=== PATIENT | male | born 1950 | race African-American/Black ===

== ENCOUNTER 2019-03-15 13:51 | Inpatient (IN) | payer OTHER ==
[2019-03-15] MEDS ORDERED: ALBUTEROL SO4 2.5/IPRATROPIUM 0.5 INH SOL 3 ML VIAL.NEB. NEB ONE (14:39)
--- NOTE | 2019-03-15 14:39 | PDOC ---
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 The patient was satting in the 70's on RA upon arrival to the ED. His O2 sat went up to 100% with a non-rebreather mask applied. The patient states he was diagnosed with PNA from an X-ray 2 weeks prior for which he was treated with amoxicillin-clavulanate and finished the course of Antibiotics 3 days ago. Despite finishing the Abx the patient has still been short of breath. He frequently becomes short of breath and self administers albuterol and ipratropium via nebulizer at home. This time however his home nebulizers did not relieve his discomfort so the patient came to the ER to be evaluated. The patient denies recent fevers, chills, chest pain, ankle/leg swelling, abdominal pain, headahe or neck pain. PCP: Dr. Zhou at [facility] Director Of Compensation: Anabelle Inman at [facility] PSH: PAH Lobectomy 2015, PE lung clot retrieval Social Hx: Denies every smoking, drinking, or other substance usage. Patient Lives at home by self, has an aid 7 days a week for 8 hours. Allergies: Toradol Past History - Past Medical History Allergies/Adverse Reactions: Allergies Allergy/AdvReac Type Severity Reaction Status Date / Time ketorolac [From Toradol] AdvReac Difficulty Verified 03/15/19 16:56 Breathing Home Medications: Ambulatory Orders Digoxin [Lanoxin -] 0.125 mg PO DAILY 03/15/19 Montelukast Sodium [Singulair] 10 mg PO DAILY 03/15/19 Pantoprazole Sodium [Protonix -] 40 mg PO DAILY 03/15/19 Prednisone 10 mg PO DAILY 03/15/19 Rivaroxaban [Xarelto -] 20 mg PO DAILY 03/15/19 Review of Systems - Review of Systems Able to Perform ROS?: Yes Comments:: CONSTITUTIONAL: Absent: fever, no chills, no fatigue EYES: Absent: visual changes ENT: Absent: ear pain, no sore throat CARDIOVASCULAR: Absent: chest pain, no palpitations RESPIRATORY: Present: SOB Absent: cough GI: Absent: abdominal pain, no nausea, no vomiting, no constipation, no diarrhea GENITOURINARY: Absent: dysuria, no frequency, no hematuria MUSKULOSKELETAL: Absent: back pain, no arthralgia, no myalgia SKIN: Present: rash NEURO: Absent: headache *Physical Exam - Vital Signs Last Vital Signs Temp Pulse Resp BP Pulse Ox 96.7 F L 102 H 20 132/92 03/15/19 14:23 03/15/19 14:23 03/15/19 14:23 03/15/19 14:23 - Physical Exam General Appearance: Yes: Disheveled, Moderate Distress, Cachetic, Thin. No: Nourished HEENT: positive: EOMI, YVONNE, Normal ENT Inspection, Normal Voice Neck: positive: Trachea midline, Supple, Decreased range of motion. negative: Tender Respiratory/Chest: positive: Lungs Clear, Respiratory Distress, Accessory Muscle Use, Labored Respiration, Rapid RR, Decreased Breath Sounds. negative: Crackles, Rales, Rhonchi, Stridor, Wheezing Cardiovascular: positive: Regular Rhythm, S1, S2, Tachycardia. negative: Edema , JVD, Murmur Vascular Pulses: Dorsalis-Pedis (R): 1+, Doralis-Pedis (L): 1+ Gastrointestinal/Abdominal: positive: Normal Bowel Sounds, Flat, Soft. negative : Tender Male Genitalia: positive: normal genitalia. negative: testicular tenderness Rectal Exam: positive: deferred Musculoskeletal: positive: Decreased Range of Motion, Other (Cachectic). negative: Vertebral Tenderness Extremity: positive: Normal Capillary Refill, Normal Inspection, Coldness, Cyanosis, Delayed Capillary Refill. 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 The patient was satting in the 70's on RA upon arrival to the ED. His O2 sat went up to 100% with a non-rebreather mask applied. The patient states he was diagnosed with PNA from an X-ray 2 weeks prior for which he was treated with amoxicillin-clavulanate and finished the course of Antibiotics 3 days ago. Despite finishing the Abx the patient has still been short of breath. He frequently becomes short of breath and self administers albuterol and ipratropium via nebulizer at home. This time however his home nebulizers did not relieve his discomfort so the patient came to the ER to be evaluated. The patient denies recent fevers, chills, chest pain, ankle/leg swelling, abdominal pain, headahe or neck pain. VS: Tachycardic, hypoxic on entrance to the ER. - Patient is in significant respiratory distress. He is using accessory muscles to breathe. DDx IBNLT: PE, PNA, reactive airway disease, pneumothorax, ACS/NE, heart failure , Pulmonary Arterial Htn Patient is taking xarelto but is still very high risk for PE given her permanent bedbound state, history of PE, hypoxia, tachycardia, and history of cancer. Plan: Labs, CXR, EKG, CTA, duonebs, Bi-Pap, admit. EKG: RBBB, Right axis deviation, pulmonary HTN pattern Labs: BNP elevated, patient is also hyperkalemic - Will give albuterol for hyperkalemia - VBG shows patient is retaining: Will start on Bipap CXR: Shows possible right lobe infiltrate - Will get blood cultures and start Abx in ED Patient is adamantly refusing to have a Cat Scan. He wants to be admitted to the hospital but refuses to have a Cat Scan. - Spoke with Dr. Puentes who accepted the patient to her service - Spoke with ICU resident who will come and evaluate the patient. Cardiology Consult - Dr. Herndon. Spoke with him and he agrees that considering the patient's tachycardia is sinus there is no need for rate slowing medications at this time. The most important aspect to address is the patient's respiratory distress. Will consider using nitroglycerin and keep the patient on BiPap, and the patient will be admitted to the ICU for further care. *DC/Admit/Observation/Transfer Diagnosis at time of Disposition: Respiratory distress, Hypoxia, Pulmonary arterial hypertension, Tachycardia, Lung infiltrate, JVD (jugular venous distension), Cor pulmonale - Discharge Dispostion Condition at time of disposition: Guarded Decision to Admit order: Yes - Referrals - Patient Instructions - Post Discharge Activity
[2019-03-15] MEDS ORDERED: SODIUM CHLORIDE 0.9% 500 ML INFUS.BAG IV ONE (14:44)
[2019-03-15 15:43] LABS: BASO % 0.6 % (0-2.0); EOS % 0.1 % (0-4.5); HEMATOCRIT 37.7 % (35.4-49); HEMOGLOBIN 12.3 GM/dL (11.7-16.9); MCH 28.7 pg (25.7-33.7); MCHC 32.7 g/dl (32.0-35.9); MEAN CELL VOLUME 87.8 fl (80-96); MONO % 14.5 % (3.8-10.2); NEUT % 76.8 % (42.8-82.8); PLATELET COUNT 168 K/MM3 (134-434); RBC 4.29 M/mm3 (4.00-5.60); RDW 15.7 % (11.9-15.9); WHITE BLOOD COUNT 6.7 K/mm3 (4.0-10.0)
[2019-03-15 15:57] LABS: VENOUS PC02 62.3 mmHg (41-51); VENOUS PH 7.3 (7.31-7.41); VENOUS PO2 33.6 mmHg (30-40)
[2019-03-15 16:01] LABS: INR 1.86 (0.83-1.09); PROTHROMBIN TIME (PATIENT) 22.1 SEC (9.7-13.0)
[2019-03-15 16:04] LABS: ACTIVATED PTT 37.4 SECONDS (25.2-36.5)
[2019-03-15 16:12] LABS: N-TERMINAL BNP 4183.9 pg/ml (5-125)
[2019-03-15 16:15] LABS: ALBUMIN 1.8 g/dl (3.4-5.0); ALK PHOS 91 U/L (45-117); ANION GAP 5 MMOL/L (8-16); BILIRUBIN,TOTAL 0.6 mg/dL (0.2-1); BLOOD UREA NITROGEN 13 mg/dL (7-18); CALCIUM 8.4 mg/dL (8.5-10.1); CHLORIDE 102 mmol/L (98-107); CO2 30 mmol/L (21-32); CREATININE 0.7 mg/dL (0.55-1.3); GLUCOSE,RANDOM 70 mg/dL (74-106); POTASSIUM 5.3 mmol/L (3.5-5.1); SGOT/AST 38 U/L (15-37); SGPT/ALT 27 U/L (13-61); SODIUM 136 mmol/L (136-145); TOT PROT 6.4 g/dl (6.4-8.2)
--- NOTE | 2019-03-15 16:23 | PDOC ---
Documentation entered by Sushma Carvajal SCRIBE, acting as scribe for Mirella Saavedra MD. Mirella Saavedra MD: This documentation has been prepared by the Wei huynh Sammi, SCRIBE, under my direction and personally reviewed by me in its entirety. I confirm that the documentation accurately reflects all work, treatment, procedures, and medical decision making performed by me. Attending Attestation - Resident Resident Name: Sharan Machado - ED Attending Attestation I have performed the following: I have examined & evaluated the patient, The case was reviewed & discussed with the resident, I agree w/resident's findings & plan, Exceptions are as noted - HPI HPI: 03/15/19 16:03 The patient is a 68 year old male, with a PMH of Pulmonary Arterial, HTN, on permanent home O2 ~2.5L, multiple PE's (on xarelto), prostate cancer, aspergillus s/p right lower lobe lobectomy, childhood asthma, and reactive airway disease, who was BIBA from home to the emergency department for evaluation of SOB. Patient notes an Xray taken 2 weeks ago that showed a PNA and was prescribed antibiotics which he has completed and is still experiencing symptoms. Patient reports taking prescribed albuterol and ipratropium at onset of symptoms with no relief prompting his arrival to the ED. Patient has an aide that comes everyday for about 8 hours. The patient denies chest pain, headache and dizziness. Denies fever, chills, nausea, vomit, diarrhea and constipation. Denies dysuria, frequency, urgency and hematuria. 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 Inman ([facility]) - Physicial Exam PE: 03/15/19 16:17 GENERAL: The patient is in no acute distress, rapid respirations, pursed lips, speaking in 3-4 word sentences. ENT: Ears normal, nares patent, oropharynx clear without exudates. Moist mucous membranes. NECK: Normal range of motion, supple LUNGS: faint breath sounds, bilaterally HEART:Regular rate and rhythm, normal S1 and S2 without murmur, rub or gallop. ABDOMEN: Soft, nontender, normoactive bowel sounds. EXTREMITIES: Normal range of motion, no edema. NEUROLOGICAL: Cranial nerves II through XII grossly intact. Normal speech. No focal neurological deficits. SKIN: Warm, Dry, normal turgor, no rashes or lesions noted. - Critical Care Time Total Critical Care Time: 60 Critical Care Statement: The care of this patient involved high complexity decision making to prevent further life threatening deterioration of the patient 's condition and/or to evaluate & treat vital organ system(s) failure or risk of failure. - Medical Decision Making 03/15/19 16:19 68 yo M multiple respiratory conditions -Pulm HTN, Aspergillus s/p right lower lobe lobectomy, PE who presents with shortness of breath Recent pneumonia, treated with Augmentin, last dose 4 days ago No fevers or chills EKG - ST rate of 126 bpm, RAD, RVH, artifact at baseline (EKG abn as compared to prior from 2001) 03/15/19 16:23 Laboratory Tests 03/15/19 03/15/19 03/15/19 15:01 15: 15:01 WBC Hgb Hct Plt Count INR 1.86 H D-Dimer VBG pH 7.30 L POC VBG pCO2 62.3 H POC VBG pO2 33.6 VBG HCO3 31.3 H VBG O2 Sat (Laurent) 49.2 L Potassium 5.3 H BUN 13 Creatinine 0.7 Random Glucose 70 L Troponin I B-Natriuretic Peptide 03/15/19 03/15/19 03/15/19 15:01 15:01 15:21 WBC 6.7 Hgb 12.3 Hct 37.7 Plt Count 168 INR D-Dimer 924 H VBG pH POC VBG pCO2 POC VBG pO2 VBG HCO3 VBG O2 Sat (Laurent) Potassium BUN Creatinine Random Glucose Troponin I 0.06 H B-Natriuretic Peptide 4183.9 H Pt CXR concerning for pneumonia Vancomycin and Zosyn ordered Pt placed on BiPAP Pt HR 110s to 150s, gently hydrated Pt at this time refusing to be repositioned in bed because he has found a comfortable position He is also refusing to go to CT Pt offered transfer back to [facility] Pt states he does not want to be moved ICU resident called to assess this patient Will admit to ICU Cardiology called (to obtain records form [facility]) Clinical Impression: Pneumonia, initial presentation Acute respiratory failure, initial presentation Pulmonary hypertension, initial presentation
[2019-03-15] MEDS ORDERED: VANCOMYCIN 1,000 MG in DEXTROSE 5%-WATER - 250 ML IVPB ONE (17:14)
[2019-03-15] MEDS ORDERED: ALBUTEROL SO4 0.083% IH SOL 2.5 MG/3 ML VIAL.NEB. NEB ONE ×3 (17:15→21:24)
[2019-03-15] MEDS ORDERED: PIPERACILLIN/TAZOB 4.5 GM 4.5 GM/100 ML BAG IVPB ONE (18:19)
[2019-03-15] MEDS ORDERED: VANCOMYCIN 1 GRAM (PRE-DOCKED) 1,000 MG/250 ML BAG IVPB ONE (18:20)
[2019-03-15] MEDS: PIPERACILLIN/TAZOB 4.5 GM 4.5 GM in DEXTROSE 5%-WATER 100 ML IVPB ONE ×2 (18:28→19:31)
--- NOTE | 2019-03-15 19:40 | CONSULT ---
Consult Consult Specialty:: Pulm/CCM Reason for Consultation:: Acute on chronic respiratory failure - History of Present Illness History of Present Illness: 68 yo M h/o PAH s/p R heart cath but not on any medication, on home O2 2.5L, multiple PE (most recent one 3 years ago) s/p clot retrival currently on xarelto , prostate CA, aspergillus s/p R LLL lobectomy in 2006 and reactive airway disease BIBEMS for worsening shortness of breath. Per EMS, ED and the patient, he went to see his PMD 2 weeks ag for cough and worsening shortness of breath. He was diagnosed with PNA and given augmentin. He finished the abx 3 days ago with no relief of symptoms. Patient was started on daily steroid by his box fabricator at [facility] (Dr. Inman) few months ago but he electively stopped taking it since last week. Denies fever, chills, chest pain, headache, n/v, urinary or bowel sx. - History Source History Provided By: Patient Limitations to Obtaining History: No Limitations - Smoking History Smoking history: Never smoked Home Medications - Allergies Allergies/Adverse Reactions: Allergies Allergy/AdvReac Type Severity Reaction Status Date / Time ketorolac [From Toradol] AdvReac Difficulty Verified 03/15/19 16:56 Breathing - Home Medications Home Medications: Ambulatory Orders Digoxin [Lanoxin -] 0.125 mg PO DAILY 03/15/19 Montelukast Sodium [Singulair] 10 mg PO DAILY 03/15/19 Pantoprazole Sodium [Protonix -] 40 mg PO DAILY 03/15/19 Prednisone 10 mg PO DAILY 03/15/19 Rivaroxaban [Xarelto -] 20 mg PO DAILY 03/15/19 Review of Systems - Review of Systems Constitutional: denies: Chills, Fever Cardiovascular: reports: Shortness of Breath. denies: Chest Pain, Palpitations Respiratory: reports: Cough, Exercise Intolerance, SOB, SOB on Exertion, Wheezing Gastrointestinal: denies: Abdominal Pain, Constipation, Diarrhea Integumentary: reports: Wound (b/l ankles) Neurological: denies: Change in LOC, Change in Speech, Confusion Physical Exam Vital Signs: Vital Signs Temperature 96.7 F L 03/15/19 14:23 Pulse Rate 102 H 03/15/19 14:23 Respiratory Rate 20 03/15/19 14:23 Blood Pressure 132/92 03/15/19 14:23 O2 Sat by Pulse Oximetry (%) 91 L 03/15/19 16:52 Constitutional: Yes: Severe Distress, Thin Cardiovascular: Yes: Tachycardia, S1, S2. No: Murmur Respiratory: Yes: Accessory Muscle Use, Rhonchi, Tachypnea, Other (on bilevel) Gastrointestinal: Yes: Normal Bowel Sounds, Soft. No: Tenderness Edema: No Integumentary: Yes: Venous Stasis Changes Wound/Incision: Yes: Clean/Dry (b/l ankle lesions), Dressing Dry and Intact Labs: CBC, BMP 03/15/19 15:21 03/15/19 15:01 Imaging - Results X-ray: Report Reviewed, Image Reviewed Assessment/Plan 68 yo M h/o PAH s/p R heart cath but not on any medication, on home O2 2.5L, multiple PE (most recent one 3 years ago) s/p clot retrival currently on xarelto , prostate CA, aspergillus s/p R LLL lobectomy in 2006 and reactive airway disease admitted to the ICU for acute on chronic hypercapnic respiratory failure. Pulm: acute on chronic hypercarbic respiratory failure - likely from severe sepsis of hypermetabolism with lactic acidosis in the setting of PAH, reactive airway disease - pt currently on bi-level which corrected his respiratory acidosis but still has intense work of breathing - low level threshold for intubation - neb standing and PRN - solumedrol 60mg IVPUSH Q6H pulmonary arterial hypertension - s/p diagnostic R heart cath - pt not taking any vasoactive agent such as prostaglandin or PDE5 - obtain baseline ECHO h/o PE s/p clot retrival and on xarelto - unlikely another PE while on AC, however, still high Well's score - cont. xarelto reactive airway disease - could a contributor to patient's respiratory failure - duoneb standing and PRN - cont. solumedrol as scheduled - cont. singulair aspergillus s/p LLL lobectomy - another possible contributor due to increased space ventilation ID: severe sepsis - likely from PNA - failed outpatient augmentin treatment - received vanco and zosyn in ED, c/w such regiment and consult ID - fluid resuscitation with 2L NS bolus, then c/w standing isotonic fluids - trend lactate CV: sinus tachycardia - likely 2/2 underlying severe sepsis - cont. to treat underlying cause - cardiology input appreciated Renal hyperkalemia - mild without any EKG change - lactulose 20mg once - repeat BMP tomorrow Neuro: AAO x 3, cont. neurocheck to trend mentation FEN - Aggressive fluid resuscitation - replete as needed - NPO for now Prophylaixs - DVT: on xarelto - GI: not indicated Patient adamantly refused CTA due to fear of worsening dyspnea in scanner. He also refused transfer to [facility] per ED resident. Case discussed with Dr. Vail and the on-call box fabricator for Dr. Inman at [facility] who agreed with the above plan. Paul Navarro PGY3 Visit type - Emergency Visit Emergency Visit: Yes ED Registration Date: 03/15/19 Care time: The patient presented to the Emergency Department on the above date and was hospitalized for further evaluation of their emergent condition. - New Patient This patient is new to me today: Yes Date on this admission: 03/15/19 - Critical Care Critical Care patient: Yes Total Critical Care Time (in minutes): 35 Critical Care Statement: The care of this patient involved high complexity decision making to prevent further life threatening deterioration of the patient 's condition and/or to evaluate & treat vital organ system(s) failure or risk of failure.
[2019-03-15] MEDS: ALBUTEROL SO4 2.5/IPRATROPIUM 0.5 INH SOL 3 ML VIAL.NEB. NEB SCH (19:50)
[2019-03-15] MEDS ORDERED: LACTULOSE 20 GM/30 ML UDC (FOR ORAL USE ONLY) PO ONE (19:55)
--- NOTE | 2019-03-15 20:13 | HP ---
Admitting History and Physical - Primary Care Physician PCP: Gabriel Puentes - Admission History of Present Illness: 68 year old male, with a PMH of Pulmonary Arterial, HTN, on permanent home O2 ~ 2.5L, multiple PE's (on xarelto), prostate cancer, aspergillus s/p right lower lobe lobectomy, childhood asthma, and reactive airway disease, who was BIBA from home to the emergency department for evaluation of SOB. Patient notes an Xray taken 2 weeks ago that showed a PNA and was prescribed antibiotics which he has completed and is still experiencing symptoms. Patient reports taking prescribed albuterol and ipratropium at onset of symptoms with no relief prompting his arrival to the ED. Patient has an aide that comes everyday for about 8 hours. - Past Medical History Cardiovascular: Yes: HTN Pulmonary: Yes: Asthma, Pneumonia, Pulmonary Embolus - Smoking History Smoking history: Never smoked Home Medications - Allergies Allergies/Adverse Reactions: Allergies Allergy/AdvReac Type Severity Reaction Status Date / Time ketorolac [From Toradol] AdvReac Difficulty Verified 03/15/19 16:56 Breathing - Home Medications Home Medications: Ambulatory Orders Digoxin [Lanoxin -] 0.125 mg PO DAILY 03/15/19 Montelukast Sodium [Singulair] 10 mg PO DAILY 03/15/19 Pantoprazole Sodium [Protonix -] 40 mg PO DAILY 03/15/19 Prednisone 10 mg PO DAILY 03/15/19 Rivaroxaban [Xarelto -] 20 mg PO DAILY 03/15/19 Physical Examination Vital Signs: Vital Signs Temperature 96.7 F L 03/15/19 14:23 Pulse Rate 123 H 03/15/19 19:49 Respiratory Rate 13 03/15/19 19:49 Blood Pressure 132/78 03/15/19 19:49 O2 Sat by Pulse Oximetry (%) 100 03/15/19 19:49 Constitutional: Yes: Calm HENT: Yes: Atraumatic Neck: Yes: Supple Cardiovascular: Yes: Regular Rate and Rhythm Respiratory: Yes: Rhonchi, Wheezes Gastrointestinal: Yes: Normal Bowel Sounds Extremities: Yes: WNL Edema: No Neurological: Yes: Alert, Oriented Labs: CBC, BMP 03/15/19 15:21 03/15/19 15:01 Imaging - Results X-ray: Report Reviewed Problem List - Problems (1) Cor pulmonale Assessment/Plan: on iv diuretics Code(s): I27.81 - COR PULMONALE (CHRONIC) (2) Hypoxia Assessment/Plan: intubated and sedated Code(s): R09.02 - HYPOXEMIA (3) Pulmonary arterial hypertension Code(s): I27.21 - SECONDARY PULMONARY ARTERIAL HYPERTENSION (4) Respiratory distress Assessment/Plan: intubated Code(s): R06.03 - ACUTE RESPIRATORY DISTRESS Assessment/Plan Laboratory Tests 03/15/19 03/15/19 03/15/19 15:01 15:01 15:01 WBC RBC Hgb Hct MCV MCH MCHC RDW Plt Count MPV Absolute Neuts (auto) Neutrophils % Lymphocytes % Monocytes % Eosinophils % Basophils % Nucleated RBC % PT with INR 22.10 H INR 1.86 H PTT (Actin FS) 37.4 H D-Dimer Anticoagulation Therapy VBG pH 7.30 L POC VBG pCO2 62.3 H POC VBG pO2 33.6 VBG HCO3 31.3 H VBG O2 Sat (Laurent) 49.2 L VBG Base Excess 4.0 H O2 Delivery Device Oxygen Flow Rate Vent Mode Vent Rate Mechanical Rate Pressure Support Vent Sodium 136 Potassium 5.3 H Chloride 102 Carbon Dioxide 30 Anion Gap 5 L BUN 13 Creatinine 0.7 Creat Clearance w eGFR 112.15 Random Glucose 70 L Calcium 8.4 L Total Bilirubin 0.6 AST 38 H ALT 27 Alkaline Phosphatase 91 Troponin I B-Natriuretic Peptide Total Protein 6.4 Albumin 1.8 L Blood Type Antibody Screen 03/15/19 03/15/19 03/15/19 15:01 15:01 15:01 WBC RBC Hgb Hct MCV MCH MCHC RDW Plt Count MPV Absolute Neuts (auto) Neutrophils % Lymphocytes % Monocytes % Eosinophils % Basophils % Nucleated RBC % PT with INR INR PTT (Actin FS) D-Dimer 924 H Anticoagulation Therapy VBG pH POC VBG pCO2 POC VBG pO2 VBG HCO3 VBG O2 Sat (Laurent) VBG Base Excess O2 Delivery Device Oxygen Flow Rate Vent Mode Vent Rate Mechanical Rate Pressure Support Vent Sodium Potassium Chloride Carbon Dioxide Anion Gap BUN Creatinine Creat Clearance w eGFR Random Glucose Calcium Total Bilirubin AST ALT Alkaline Phosphatase Troponin I 0.06 H B-Natriuretic Peptide 4183.9 H Total Protein Albumin Blood Type Cancelled Antibody Screen Cancelled 03/15/19 03/15/19 15:21 20:02 WBC 6.7 RBC 4.29 Hgb 12.3 Hct 37.7 MCV 87.8 MCH 28.7 MCHC 32.7 RDW 15.7 Plt Count 168 MPV 7.0 L Absolute Neuts (auto) 5.2 Neutrophils % 76.8 Lymphocytes % 8.0 Monocytes % 14.5 H Eosinophils % 0.1 Basophils % 0.6 Nucleated RBC % 0 PT with INR INR PTT (Actin FS) D-Dimer Anticoagulation Therapy No Result Required. VBG pH POC VBG pCO2 POC VBG pO2 VBG HCO3 VBG O2 Sat (Laurent) VBG Base Excess O2 Delivery Device No Result Required. Oxygen Flow Rate No Result Required. Vent Mode No Result Required. Vent Rate No Result Required. Mechanical Rate No Result Required. Pressure Support Vent No Result Required. Sodium Potassium Chloride Carbon Dioxide Anion Gap BUN Creatinine Creat Clearance w eGFR Random Glucose Calcium Total Bilirubin AST ALT Alkaline Phosphatase Troponin I B-Natriuretic Peptide Total Protein Albumin Blood Type Antibody Screen Active Medications Generic Name Dose Route Start Last Admin Trade Name Freq PRN Reason Stop Dose Admin Albuterol/Ipratropium 1 amp 03/15/19 20:00 Duoneb - NEB RQID SUKHWINDER Albuterol/Ipratropium 1 amp 03/15/19 19:53 Duoneb - NEB Q4H PRN SHORTNESS OF BREATH Chlorhexidine Gluconate 1 applic 03/15/19 22:00 Hibiclens For Decolonization - TP HS [facility] Enoxaparin Sodium 40 mg 03/16/19 10:00 Lovenox - SQ DAILY [facility] Piperacillin Sod/Tazobactam 100 mls @ 200 mls/hr 03/16/19 01:00 Sod 4.5 gm/ Dextrose IVPB 03/16/19 01:29 ONCE ONE Protocol Vancomycin HCl 1,250 mg/ 250 mls @ 250 mls/2 hr 03/16/19 05:00 Dextrose IVPB 03/16/19 06:59 ONCE ONE Protocol Methylprednisolone Sodium Succinate 80 mg 03/15/19 21:00 Solu-Medrol - IVPUSH Q6H-IV [facility] Mupirocin 1 applic 03/15/19 22:00 Bactroban Ointment (For Decolonization) - NS 03/20/19 21:59 BID [facility] ASSESSMENT AND PLAN: Respiratory Failure Pneumonia Severe Sepsis Lactic Acidosis Pulmonary HTN h/o PE h/o of aspergellosis h/o of lobectomy plan iv empiric abx iv steroids sputum cx nutrition pt is intubated dvt ppx icu cc time 60 min
[2019-03-15 20:16] LABS: ARTERIAL BLD GAS O2 SATURATION 98.5 % (95-98); ARTERIAL BLOOD GAS BASE EXCESS 2.8 meq/l (-2-2); ARTERIAL BLOOD GAS PCO2 40.2 mmHg (35-45); ARTERIAL BLOOD GAS PO2 126 mmHg (80-105); ARTERIAL BLOOD GAS pH 7.44 (7.35-7.45); CARBOXYHEMOGLOBIN 0.5 % (0-2)
[2019-03-15] MEDS ORDERED: methylPREDNISolone NA SUCC 125 MG/2 ML VIAL IVPUSH ONE (20:30)
[2019-03-15] MEDS ORDERED: FUROSEMIDE 40 MG/4 ML INJECTABLE VIAL IVPUSH ONE (20:33)
[2019-03-15] MEDS ORDERED: RAPID SEQUENCE INTUBATION KIT NR ONE (20:52)
[2019-03-15] MEDS ORDERED: methylPREDNISolone NA SUCC 40 MG/1 ML VIAL IVPUSH SCH (21:00)
[2019-03-15] MEDS ORDERED: PROPOFOL 1,000,000 MCG/100 ML VIAL ONE (21:02)
--- NOTE | 2019-03-15 21:10 | PN ---
Progress Note (short form) - Note Progress Note: Called to intubate this patient who is in acute respiratory failure on nonrebreather mask with 100 O2 saturating in 80s.Gave [id number] mg,f/b Rocuronium 30mg IV.DL with MAC 4.ETT & cuff up posative Etco2.P 162,BP 126/80 and Spo2 100 on O2 100.Advise ABG and CXR.
[2019-03-15] MEDS ORDERED: INSULIN REGULAR HUMAN 100 UNITS/ML *VIAL IVPUSH ONE (21:23)
[2019-03-15] MEDS ORDERED: DEXTROSE 50%-WATER - 25 GM/50 ML VIAL IVPUSH ONE (21:23)
[2019-03-15] MEDS ORDERED: MIDAZOLAM 100 MG/100 ML MG IVPB ONE (21:45)
[2019-03-15] MEDS ORDERED: MIDAZOLAM HCL 5 MG/1 ML Single Dose Vial ONE (21:45)
[2019-03-15] MEDS ORDERED: fentaNYL CITRATE 250 MCG/5 ML VIAL ONE (21:49)
--- NOTE | 2019-03-15 22:07 | PN ---
Progress Note (short form) - Note Progress Note: #Acute hypoxic respiratory failure; with pna -patient severely tachypniec upon arrival to ICU; RR 50s-60s; HR 150s-170 sinus tach; sating in 70s on bipap when nurse turning patient -agreed to be intubated ; sedated on fentanyl and propofol drip -repeat abg -lab reported lactic acid 3.0; -s/p fluid bolus; maintain gentle hydration ; repeat LA -BNP elevated; most likely in the setting of severe right heart fail/pulm htn; -f/u echo cardiogram -repeat cxr -cont iv antibiotics, bronchodilators, iv steroids -HR with sinus tachycardia; repeat ECG still with sinus tach
[2019-03-15] MEDS: CHLORHEXIDINE GLUCONATE 4% CLEANSER FOR DECOLONIZATION TP SCH (22:14)
[2019-03-15] MEDS: PROPOFOL 1,000,000 MCG/100 ML VIAL IVPB SCH (22:14)
[2019-03-15] MEDS: MUPIROCIN 2% TOPICAL OINTMENT FOR DECOLONIZATION NS SCH (22:14)
[2019-03-15] MEDS: FENTANYL INJECTION 500 MCG in DEXTROSE 5%-WATER - 90 ML IVPB SCH (22:14)
[2019-03-15] MEDS ORDERED: SODIUM CHLORIDE 1,000 ML IV STA (22:44)
[2019-03-16 00:01] LABS: ARTERIAL BLD GAS O2 SATURATION 91.3 % (95-98); ARTERIAL BLOOD GAS BASE EXCESS -1.9 meq/l (-2-2); ARTERIAL BLOOD GAS PCO2 47.2 mmHg (35-45); ARTERIAL BLOOD GAS PO2 70.9 mmHg (80-105); ARTERIAL BLOOD GAS pH 7.32 (7.35-7.45)
[2019-03-16 00:06] LABS: ALLENS TEST POSITIVE
[2019-03-16] MEDS ORDERED: PIPERACILLIN/TAZOB 4.5 GM 4.5 GM in DEXTROSE 5%-WATER 100 ML IVPB ONE (01:00)
[2019-03-16] MEDS ORDERED: DEXTROSE 50%-WATER - 25 GM/50 ML VIAL IVPUSH ONE (01:30)
[2019-03-16] MEDS ORDERED: DEXTROSE 50%-WATER 25 GM/50 ML DISP.SYRIN ONE (01:37)
[2019-03-16] MEDS: SODIUM CHLORIDE 1,000 ML IV SCH ×2 (01:45→23:44)
[2019-03-16] MEDS ORDERED: DEXTROSE 5%-WATER 100 ML IVPB ONE (02:35)
[2019-03-16] MEDS ORDERED: PIPERACILLIN/TAZOBACTAM 4.5 GM VIAL IVPB ONE (02:35)
[2019-03-16] MEDS: ALBUTEROL SO4 2.5/IPRATROPIUM 0.5 INH SOL 3 ML VIAL.NEB. NEB PRN (03:29)
[2019-03-16] MEDS ORDERED: VANCOMYCIN HCL 1,250 MG in DEXTROSE 5%-WATER - 250 ML IVPB ONE (05:00)
[2019-03-16] MEDS: methylPREDNISolone NA SUCC 40 MG/1 ML VIAL IVPUSH SCH ×4 (06:27→23:44)
[2019-03-16] MEDS: FENTANYL INJECTION 500 MCG in DEXTROSE 5%-WATER - 90 ML IVPB SCH (06:30)
[2019-03-16 06:35] LABS: BASO % 0.6 % (0-2.0); HEMATOCRIT 35.1 % (35.4-49); HEMOGLOBIN 11.3 GM/dL (11.7-16.9); LYMPH % 1.5 % (8-40); MCH 28.4 pg (25.7-33.7); MCHC 32.3 g/dl (32.0-35.9); MEAN CELL VOLUME 88.1 fl (80-96); MEAN PLT VOLUME 7.2 fl (7.5-11.1); MONO % 2.6 % (3.8-10.2); NEUT % 95.3 % (42.8-82.8); PLATELET COUNT 162 K/MM3 (134-434); RBC 3.99 M/mm3 (4.00-5.60); WHITE BLOOD COUNT 11.1 K/mm3 (4.0-10.0)
[2019-03-16 06:45] LABS: INR 1.49 (0.83-1.09); PROTHROMBIN TIME (PATIENT) 17.7 SEC (9.7-13.0)
[2019-03-16 06:47] LABS: ACTIVATED PTT 28.5 SECONDS (25.2-36.5)
[2019-03-16 07:49] LABS: ALBUMIN 1.7 g/dl (3.4-5.0); ALK PHOS 80 U/L (45-117); ANION GAP 9 MMOL/L (8-16); BILIRUBIN,TOTAL 0.6 mg/dL (0.2-1); BLOOD UREA NITROGEN 12 mg/dL (7-18); CALCIUM 7.6 mg/dL (8.5-10.1); CHLORIDE 107 mmol/L (98-107); CO2 25 mmol/L (21-32); CREATININE 0.8 mg/dL (0.55-1.3); GLUCOSE,RANDOM 156 mg/dL (74-106); PHOSPHOROUS 3.6 mg/dL (2.5-4.9); POTASSIUM 4.7 mmol/L (3.5-5.1); SGOT/AST 19 U/L (15-37); SGPT/ALT 26 U/L (13-61); SODIUM 140 mmol/L (136-145); TOT PROT 5.8 g/dl (6.4-8.2)
[2019-03-16] MEDS ORDERED: PIPERACILLIN/TAZOB 3.375 GM 3.375 GM in DEXTROSE 5%-WATER - 50 ML IVPB ONE (08:00)
[2019-03-16] MEDS: ALBUTEROL SO4 2.5/IPRATROPIUM 0.5 INH SOL 3 ML VIAL.NEB. NEB SCH ×4 (09:15→20:50)
[2019-03-16] MEDS: RIVAROXABAN 20 MG TABLET PO SCH (09:58)
[2019-03-16] MEDS: DIGOXIN 0.125 MG TABLET (FP) PO SCH (09:58)
[2019-03-16] MEDS: PANTOPRAZOLE 40 MG TABLET (FP) PO SCH (09:59)
[2019-03-16] MEDS: MUPIROCIN 2% TOPICAL OINTMENT FOR DECOLONIZATION NS SCH ×2 (09:59→23:45)
[2019-03-16] MEDS ORDERED: ENOXAPARIN NA (PORCINE) 40 MG/0.4 ML DISP.SYRIN SQ SCH (10:00)
[2019-03-16] MEDS ORDERED: DEXTROSE 5%-WATER - 50 ML IVPB ONE ×3 (10:10→23:55)
[2019-03-16] MEDS ORDERED: PIPERACILLIN/TAZOBACTAM 3.375 GM VIAL IVPB ONE ×3 (10:10→23:55)
[2019-03-16 11:38] LABS: ANISOCYTOSIS 0; MACROCYTOSIS 0
--- NOTE | 2019-03-16 11:38 | PN ---
Physical Exam: SUBJECTIVE: Patient seen and examined HD# 2 ICU Day 2 Intubation Day 1 Overnight Events: Pt was admitted to the ICU last evening. Was intubated secondary to tachypnea and tachycardia concerning for pending respiratory failure. Sedation held briefly this morning. Pt was alert and able to communicate with nodding. Found to be tachypneic again. Consented to CTA now that he was intubated. Informed he would again be sedated given his respiratory status. OBJECTIVE: Vital Signs Period Temp Pulse Resp BP Sys/Wright Pulse Ox Last 24 Hr 96.7 F-98.6 F 102-166 13-53 66-132/55-95 90-100 Intake & Output 03/15/19 03/16/19 03/16/19 22:59 06:59 14:59 Intake Total 2350 Output Total 1200 Balance 1150 Weight 51.3 kg 69.672 kg Intake: IV 2000 Normal Saline - 1,000 ml 2000 @ 1000 mls/hr IV ASDIR STA Rx#:[id number] IVPB 350 Output: Urine 1000 Void 1000 Emesis 200 Other: Voiding Method Indwelling Catheter # Unmeasured Voids Void 1 Bowel Movement Yes No Height 1.68 m Body Mass Index (BMI) 18.2 Weight Measurement Method Built in [facility] Built in [facility] Lines: - PIV Drains: - Ovalle Supplemental Oxygen: Ventilator Mode: AC Vent rate: 14 Tv: 400 PEEP: 5 FiO2: 60% Physical Exams: GENERAL: Intubated but the patient is awake, alert, appears fully oriented, in no acute distress. HEAD: Normal with no signs of trauma. LUNGS: Tachypenic, breathing at a rate much higher than vent settings. Breath sounds present bilaterally. Decreased in bilateral lower lobes. No stridor, rales, or wheeze. HEART: Borderline tachycardic rate with regular rhythm, S1, S2 without murmur, rub or gallop. ABDOMEN: Soft, nontender, nondistended. EXTREMITIES: 2+ pulses, warm, well-perfused, no pretibial edema. PSYCH: Normal affect. SKIN: Warm and dry Drips: - Normal Saline - Propofol - Fentanyl Anti Infectives: - Vancomycin, Day 2 - Zosyn, Day 2 Laboratory Results - last 24 hr 03/15/19 03/15/19 03/15/19 15:01 15:01 15:01 WBC RBC Hgb Hct MCV MCH MCHC RDW Plt Count MPV Absolute Neuts (auto) Neutrophils % Lymphocytes % Monocytes % Eosinophils % Basophils % Nucleated RBC % PT with INR 22.10 H INR 1.86 H PTT (Actin FS) 37.4 H D-Dimer Anticoagulation Therapy Puncture Site ABG pH ABG pCO2 at Pt Temp ABG pO2 at Pt Temp ABG HCO3 ABG O2 Sat (Measured) ABG O2 Content ABG Base Excess David Test VBG pH 7.30 L POC VBG pCO2 62.3 H POC VBG pO2 33.6 VBG HCO3 31.3 H VBG O2 Sat (Laurent) 49.2 L VBG Base Excess 4.0 H Carboxyhemoglobin Methemoglobin O2 Delivery Device Oxygen Flow Rate Vent Mode Vent Rate Mechanical Rate PEEP Pressure Support Vent Sodium 136 Potassium 5.3 H Chloride 102 Carbon Dioxide 30 Anion Gap 5 L BUN 13 Creatinine 0.7 Creat Clearance w eGFR 112.15 Random Glucose 70 L Lactic Acid Calcium 8.4 L Phosphorus Magnesium Total Bilirubin 0.6 AST 38 H ALT 27 Alkaline Phosphatase 91 Troponin I B-Natriuretic Peptide Total Protein 6.4 Albumin 1.8 L Digoxin Blood Type Antibody Screen 03/15/19 03/15/19 03/15/19 15:01 15:01 15:01 WBC RBC Hgb Hct MCV MCH MCHC RDW Plt Count MPV Absolute Neuts (auto) Neutrophils % Lymphocytes % Monocytes % Eosinophils % Basophils % Nucleated RBC % PT with INR INR PTT (Actin FS) D-Dimer 924 H Anticoagulation Therapy Puncture Site ABG pH ABG pCO2 at Pt Temp ABG pO2 at Pt Temp ABG HCO3 ABG O2 Sat (Measured) ABG O2 Content ABG Base Excess David Test VBG pH POC VBG pCO2 POC VBG pO2 VBG HCO3 VBG O2 Sat (Laurent) VBG Base Excess Carboxyhemoglobin Methemoglobin O2 Delivery Device Oxygen Flow Rate Vent Mode Vent Rate Mechanical Rate PEEP Pressure Support Vent Sodium Potassium Chloride Carbon Dioxide Anion Gap BUN Creatinine Creat Clearance w eGFR Random Glucose Lactic Acid Calcium Phosphorus Magnesium Total Bilirubin AST ALT Alkaline Phosphatase Troponin I 0.06 H B-Natriuretic Peptide 4183.9 H Total Protein Albumin Digoxin Blood Type Cancelled Antibody Screen Cancelled 03/15/19 03/15/19 03/15/19 15:21 19:55 20:02 WBC 6.7 RBC 4.29 Hgb 12.3 Hct 37.7 MCV 87.8 MCH 28.7 MCHC 32.7 RDW 15.7 Plt Count 168 MPV 7.0 L Absolute Neuts (auto) 5.2 Neutrophils % 76.8 Lymphocytes % 8.0 Monocytes % 14.5 H Eosinophils % 0.1 Basophils % 0.6 Nucleated RBC % 0 PT with INR INR PTT (Actin FS) D-Dimer Anticoagulation Therapy No Result Required. Puncture Site No Result Required. ABG pH 7.44 ABG pCO2 at Pt Temp 40.2 ABG pO2 at Pt Temp 126 H ABG HCO3 26.7 ABG O2 Sat (Measured) 98.5 H ABG O2 Content 23.9 H ABG Base Excess 2.8 H David Test No Result Required. VBG pH POC VBG pCO2 POC VBG pO2 VBG HCO3 VBG O2 Sat (Laurent) VBG Base Excess Carboxyhemoglobin 0.5 Methemoglobin 0.4 O2 Delivery Device No Result Required. Oxygen Flow Rate No Result Required. Vent Mode No Result Required. Vent Rate No Result Required. Mechanical Rate No Result Required. PEEP Pressure Support Vent No Result Required. Sodium Potassium Chloride Carbon Dioxide Anion Gap BUN Creatinine Creat Clearance w eGFR Random Glucose Lactic Acid 3.0 H* Calcium Phosphorus Magnesium Total Bilirubin AST ALT Alkaline Phosphatase Troponin I B-Natriuretic Peptide Total Protein Albumin Digoxin Blood Type Antibody Screen 03/15/19 03/15/19 03/15/19 23:00 23:30 23:30 WBC RBC Hgb Hct MCV MCH MCHC RDW Plt Count MPV Absolute Neuts (auto) Neutrophils % Lymphocytes % Monocytes % Eosinophils % Basophils % Nucleated RBC % PT with INR INR PTT (Actin FS) D-Dimer Anticoagulation Therapy No Result Required. Puncture Site Right radial ABG pH 7.32 L ABG pCO2 at Pt Temp 47.2 H ABG pO2 at Pt Temp 70.9 L ABG HCO3 23.8 ABG O2 Sat (Measured) 91.3 L ABG O2 Content 14.3 L ABG Base Excess -1.9 David Test Positive VBG pH POC VBG pCO2 POC VBG pO2 VBG HCO3 VBG O2 Sat (Laurent) VBG Base Excess Carboxyhemoglobin Methemoglobin O2 Delivery Device Vent Oxygen Flow Rate Yes Vent Mode No Result Required. Vent Rate 14 Mechanical Rate No Result Required. PEEP 5.0 Pressure Support Vent 400 Sodium Potassium Chloride Carbon Dioxide Anion Gap BUN Creatinine Creat Clearance w eGFR Random Glucose Lactic Acid 2.2 H* Calcium Phosphorus Magnesium Total Bilirubin AST ALT Alkaline Phosphatase Troponin I 0.06 H B-Natriuretic Peptide Total Protein Albumin Digoxin Blood Type Antibody Screen 03/16/19 03/16/19 03/16/19 05:30 05:30 05:30 WBC 11.1 H RBC 3.99 L Hgb 11.3 L Hct 35.1 L MCV 88.1 MCH 28.4 MCHC 32.3 RDW 16.0 H Plt Count 162 MPV 7.2 L Absolute Neuts (auto) 10.6 H Neutrophils % 95.3 H D Lymphocytes % 1.5 L D Monocytes % 2.6 L D Eosinophils % 0.0 D Basophils % 0.6 Nucleated RBC % 0 PT with INR 17.70 H INR 1.49 H PTT (Actin FS) 28.5 D-Dimer Anticoagulation Therapy Puncture Site ABG pH ABG pCO2 at Pt Temp ABG pO2 at Pt Temp ABG HCO3 ABG O2 Sat (Measured) ABG O2 Content ABG Base Excess David Test VBG pH POC VBG pCO2 POC VBG pO2 VBG HCO3 VBG O2 Sat (Laurent) VBG Base Excess Carboxyhemoglobin Methemoglobin O2 Delivery Device Oxygen Flow Rate Vent Mode Vent Rate Mechanical Rate PEEP Pressure Support Vent Sodium 140 Potassium 4.7 Chloride 107 Carbon Dioxide 25 Anion Gap 9 BUN 12 Creatinine 0.8 Creat Clearance w eGFR 96.13 Random Glucose 156 H Lactic Acid Calcium 7.6 L Phosphorus 3.6 Magnesium 2.0 Total Bilirubin 0.6 AST 19 ALT 26 Alkaline Phosphatase 80 Troponin I B-Natriuretic Peptide Total Protein 5.8 L Albumin 1.7 L Digoxin 0.51 L Blood Type Antibody Screen 03/16/19 05:30 WBC RBC Hgb Hct MCV MCH MCHC RDW Plt Count MPV Absolute Neuts (auto) Neutrophils % Lymphocytes % Monocytes % Eosinophils % Basophils % Nucleated RBC % PT with INR INR PTT (Actin FS) D-Dimer Anticoagulation Therapy Puncture Site ABG pH ABG pCO2 at Pt Temp ABG pO2 at Pt Temp ABG HCO3 ABG O2 Sat (Measured) ABG O2 Content ABG Base Excess David Test VBG pH POC VBG pCO2 POC VBG pO2 VBG HCO3 VBG O2 Sat (Laurent) VBG Base Excess Carboxyhemoglobin Methemoglobin O2 Delivery Device Oxygen Flow Rate Vent Mode Vent Rate Mechanical Rate PEEP Pressure Support Vent Sodium Potassium Chloride Carbon Dioxide Anion Gap BUN Creatinine Creat Clearance w eGFR Random Glucose Lactic Acid 1.6 Calcium Phosphorus Magnesium Total Bilirubin AST ALT Alkaline Phosphatase Troponin I B-Natriuretic Peptide Total Protein Albumin Digoxin Blood Type Antibody Screen Active Medications Albuterol/Ipratropium (Duoneb -) 1 amp NEB RQID [facility] Last Admin: 03/16/19 11:18 Dose: 1 amp Albuterol/Ipratropium (Duoneb -) 1 amp NEB Q4H PRN PRN Reason: SHORTNESS OF BREATH Last Admin: 03/16/19 03:29 Dose: 1 amp Chlorhexidine Gluconate (Hibiclens For Decolonization -) 1 applic TP HS [facility] Last Admin: 03/15/19 22:14 Dose: 1 applic Digoxin (Lanoxin -) 0.125 mg PO DAILY [facility] Last Admin: 03/16/19 09:58 Dose: 0.125 mg Sodium Chloride (Normal Saline -) 1,000 mls @ 83 mls/hr IV ASDIR [facility] Last Admin: 03/16/19 01:45 Dose: 83 mls/hr Propofol (Diprivan -) 1,000,000 mcg in 100 mls @ 1.905 mls/hr IVPB TITR [facility]; Protocol Last Admin: 03/15/19 22:14 Dose: Not Given Fentanyl 500 mcg/ Dextrose 100 mls @ 0.2 mls/hr IVPB TITR [facility]; Protocol Last Admin: 03/15/19 22:14 Dose: 1 mcg/hr, 0.2 mls/hr Vancomycin HCl 1,250 mg/ (Dextrose) 250 mls @ 250 mls/2 hr IVPB Q24H [facility]; Protocol Piperacillin Sod/Tazobactam (Sod 3.375 gm/ Dextrose) 50 mls @ 100 mls/hr IVPB Q8H-IV [facility]; Protocol Methylprednisolone Sodium Succinate (Solu-Medrol -) 60 mg IVPUSH Q6H-IV [facility] Last Admin: 03/16/19 09:59 Dose: 60 mg Montelukast Sodium (Singulair -) 10 mg PO HS [facility] Mupirocin (Bactroban Ointment (For Decolonization) -) 1 applic NS BID [facility] Stop: 03/20/19 21:59 Last Admin: 03/16/19 09:59 Dose: 1 applic Pantoprazole Sodium (Protonix -) 40 mg PO DAILY [facility] Last Admin: 03/16/19 09:59 Dose: 40 mg Rivaroxaban (Xarelto) 20 mg PO DAILY@0800 [facility] Last Admin: 03/16/19 09:58 Dose: 20 mg ASSESSMENT/PLAN: 68 yo M h/o PAH s/p R heart cath but not on any medication, on home oxygen 2.5 LPM, multiple PE (most recent one 3 years ago) s/p clot retrieval currently on Xarelto, prostate CA, h/o pulmonary Aspergillus s/p LLL lobectomy in 2006 and reactive airway disease. Admitted to the ICU for acute on chronic hypercapnic respiratory failure. Neuro (& Psych): - Alert and seemingly oriented with sedation held. Will restart Propofol and Fentanyl given respiratory status. Endocrine: - Hypocalcemia corrects for albumin. - Will trend electrolytes Cardiovascular: - Consult Dr. Altamirano - Tachycardic with MAPs maintained above 65%. Suspect secondary to sepsis versus PE. - Continue Digoxin per home dose. Unsure of significant cardiac history. Will attempt to obtain outside records for further clarification. - ECHO performed beside today, which revealed severely reduced LV function with global hypokinesis. Moderate tricuspid regurg. Mild pulmonary hypertension. Hope to compare to outside records. Pulm / Resp: - Outpatient pneumonia diagnosis s/p Augmentin course. Infiltrates noted on CXR. Continue antibiotics, bronchodilators, Methylprednisolone, and Singulare. - H/o PE. Reports good compliance with Xeralto; to be continued inpatient. Will obtain CTA to evaluate for larger or additional clot formation. Hope to compare to outside records. No right heart strain noted on ECHO. No evidence for massive PE. - H/o of LLL lobectomy insetting of Aspergillosis infection. - Record request sent for [facility] records. Gastrointestinal: - Continue home Pantoprazole. Genitourinary: - Ovalle in place for strict I/Os. Infectious Disease: - Consult Dr. Cody - Tachycardic and tachypneic on arrival with elevated lactic acid. Afebrile overnight. Possible pneumonia. Ordered sputum culture and urine pneumonia antigen test. Empiric Vancomycin and Zosyn antibiotics per ID team. - Blood cultures pending with NGTD. FEN: - IVF: Normal Saline at maintenance dose Prophylaxis: - DVT: Xarelto - GI: Not indicated at this time. Family Conversation: - Discussed case with pts healthcare proxy via telephone. Dispo: Pt to remain in ICU while intubated and on sedating drip. Bulmaro Whitney MD, PGY1 ICU Consult Service Visit type - Emergency Visit Emergency Visit: No - New Patient This patient is new to me today: Yes Date on this admission: 03/16/19 - Critical Care Critical Care patient: Yes Total Critical Care Time (in minutes): 45 Critical Care Statement: The care of this patient involved high complexity decision making to prevent further life threatening deterioration of the patient 's condition and/or to evaluate & treat vital organ system(s) failure or risk of failure.
[2019-03-16] MEDS ORDERED: fentaNYL CITRATE 250 MCG/5 ML VIAL ONE (12:09)
[2019-03-16 12:27] LABS: PLATELET ESTIMATE ADEQUATE
--- NOTE | 2019-03-16 13:15 | PN ---
Teaching Attending Note Name of Resident: Bulmaro Whitney ATTENDING PHYSICIAN STATEMENT I saw and evaluated the patient. I reviewed the resident's note and discussed the case with the resident. I agree with the resident's findings and plan as documented. SUBJECTIVE: Pt seen and examined in the ICU. Remains intubated, awake off sedation, tachypneic. Vented on volume assist control with 60% FiO2. OBJECTIVE: Vital Signs Period Temp Pulse Resp BP Sys/Wright Pulse Ox Last 24 Hr 96.7 F-98.6 F 102-166 12-53 66-144/55-102 90-100 Intake & Output 03/13/19 03/14/19 03/15/19 03/16/19 23:59 23:59 23:59 23:59 Intake Total 1000 1350 Output Total 100 1100 Balance 900 250 Weight 51.3 kg 69.672 kg Gen: intubated, tachypneic Heart: RRR Lung: scattered rhonchi Abd: soft, nontender Ext: no edema CBC, BMP 03/16/19 05:30 03/16/19 05:30 Active Medications Albuterol/Ipratropium (Duoneb -) 1 amp NEB RQID [facility] Last Admin: 03/16/19 11:18 Dose: 1 amp Albuterol/Ipratropium (Duoneb -) 1 amp NEB Q4H PRN PRN Reason: SHORTNESS OF BREATH Last Admin: 03/16/19 03:29 Dose: 1 amp Chlorhexidine Gluconate (Hibiclens For Decolonization -) 1 applic TP HS [facility] Last Admin: 03/15/19 22:14 Dose: 1 applic Digoxin (Lanoxin -) 0.125 mg PO DAILY [facility] Last Admin: 03/16/19 09:58 Dose: 0.125 mg Sodium Chloride (Normal Saline -) 1,000 mls @ 83 mls/hr IV ASDIR [facility] Last Admin: 03/16/19 01:45 Dose: 83 mls/hr Propofol (Diprivan -) 1,000,000 mcg in 100 mls @ 1.905 mls/hr IVPB TITR [facility]; Protocol Last Admin: 03/15/19 22:14 Dose: Not Given Fentanyl 500 mcg/ Dextrose 100 mls @ 0.2 mls/hr IVPB TITR [facility]; Protocol Last Admin: 03/15/19 22:14 Dose: 1 mcg/hr, 0.2 mls/hr Methylprednisolone Sodium Succinate (Solu-Medrol -) 60 mg IVPUSH Q6H-IV [facility] Last Admin: 03/16/19 09:59 Dose: 60 mg Montelukast Sodium (Singulair -) 10 mg PO HS [facility] Mupirocin (Bactroban Ointment (For Decolonization) -) 1 applic NS BID [facility] Stop: 03/20/19 21:59 Last Admin: 03/16/19 09:59 Dose: 1 applic Pantoprazole Sodium (Protonix -) 40 mg PO DAILY [facility] Last Admin: 03/16/19 09:59 Dose: 40 mg Rivaroxaban (Xarelto) 20 mg PO DAILY@0800 [facility] Last Admin: 03/16/19 09:58 Dose: 20 mg ASSESSMENT AND PLAN: Acute on Chronic Hypoxic and Hypercapneic Respiratory Failure Pneumonia Severe Sepsis Lactic Acidosis Pulmonary HTN r/o Acute COPD Exacerbation h/o PE s/p Bilobectomy h/o Aspergillosis - continue antibiotics - f/u cultures - continue medrol - inhaled bronchodilators standing and PRN - CTA chest - echocardiogram - taper Fio2 to keep spO2 >90% - continue anticoagulation - sedate for vent synchrony - enteral feeds in AM - DVT/GI prophylaxis - continue ICU monitoring critical care time spent in reviewing chart, evaluating patient and formulating plan 35 min
--- NOTE | 2019-03-16 13:39 | EKG ---
Test Reason : Blood Pressure : / mmHG Vent. Rate : 126 BPM Atrial Rate : 126 BPM P-R Int : 156 ms QRS Dur : 106 ms QT Int : 354 ms P-R-T Axes : 045 249 065 degrees QTc Int : 512 ms POOR DATA QUALITY, INTERPRETATION MAY BE ADVERSELY AFFECTED SINUS TACHYCARDIA WITH PREMATURE ATRIAL COMPLEXES RIGHT SUPERIOR AXIS DEVIATION RIGHT VENTRICULAR HYPERTROPHY MARKED ST ABNORMALITY, POSSIBLE SEPTAL SUBENDOCARDIAL INJURY ABNORMAL ECG WHEN COMPARED WITH ECG OF 25-MAY-2002 19:21, PREMATURE ATRIAL COMPLEXES ARE NOW PRESENT QRS DURATION HAS INCREASED ST NOW DEPRESSED IN ANTERIOR LEADS T WAVE INVERSION MORE EVIDENT IN ANTEROLATERAL LEADS Confirmed by LISA ROSALES MD ([id number]) on 03/16/2019 1:38:48 PM Referred By: Confirmed By:LISA ROSALES MD
--- NOTE | 2019-03-16 13:39 | EKG ---
Test Reason : Blood Pressure : / mmHG Vent. Rate : 117 BPM Atrial Rate : 117 BPM P-R Int : 202 ms QRS Dur : 118 ms QT Int : 302 ms P-R-T Axes : 073 254 090 degrees QTc Int : 421 ms SINUS TACHYCARDIA POSSIBLE LEFT ATRIAL ENLARGEMENT RIGHT SUPERIOR AXIS DEVIATION RIGHT VENTRICULAR HYPERTROPHY ABNORMAL ECG WHEN COMPARED WITH ECG OF 25-MAY-2002 19:21, QUESTIONABLE CHANGE IN QRS DURATION Confirmed by LISA ROSALES MD ([id number]) on 03/16/2019 1:39:22 PM Referred By: Confirmed By:LISA ROSALES MD
--- NOTE | 2019-03-16 13:48 | CON.CARD ---
Consult Consult Specialty:: cardiology Referred by:: Dhaval Reason for Consultation:: Respiratory failure - History of Present Illness Chief Complaint: Shortness of breath History of Present Illness: The patient is a 68-year-old man, we've a history of essential hypertension, pulmonary hypertension, on home oxygen, multiple pulmonary emboli on Xarelto, prostate cancer, Aspergillus, status post right lower lobectomy, now admitted with shortness of breath and respiratory failure. The patient is currently intubated and sedated. Hemodynamically stable. - History Source History Provided By: Medical Record Limitations to Obtaining History: Intubated - Past Medical History Cardio/Vascular: Yes: HTN Pulmonary: Yes: Asthma, Pneumonia, Pulmonary Embolus - Alcohol/Substance Use Hx Alcohol Use: No - Smoking History Smoking history: Never smoked Have you smoked in the past 12 months: No Home Medications - Allergies Allergies/Adverse Reactions: Allergies Allergy/AdvReac Type Severity Reaction Status Date / Time ketorolac [From Toradol] AdvReac Difficulty Verified 03/15/19 16:56 Breathing - Home Medications Home Medications: Ambulatory Orders Digoxin [Lanoxin -] 0.125 mg PO DAILY 03/15/19 Montelukast Sodium [Singulair] 10 mg PO DAILY 03/15/19 Pantoprazole Sodium [Protonix -] 40 mg PO DAILY 03/15/19 Prednisone 10 mg PO DAILY 03/15/19 Rivaroxaban [Xarelto -] 20 mg PO DAILY 03/15/19 Review of Systems - Review of Systems Constitutional: reports: Diaphoresis, Lethargy Eyes: reports: No Symptoms HENT: reports: No Symptoms Neck: reports: No Symptoms Cardiovascular: reports: Shortness of Breath Respiratory: reports: SOB Gastrointestinal: reports: No Symptoms Genitourinary: reports: No Symptoms Breasts: reports: No Symptoms Reported Musculoskeletal: reports: No Symptoms Integumentary: reports: No Symptoms (Sedated) Endocrine: reports: No Symptoms Hematology/Lymphatic: reports: No Symptoms Psychiatric: reports: No Symptoms Vital Signs: Vital Signs Temperature 97.2 F L 03/16/19 10:00 Pulse Rate 110 H 03/16/19 12:00 Respiratory Rate 33 H 03/16/19 13:38 Blood Pressure 133/102 H 03/16/19 12:00 O2 Sat by Pulse Oximetry (%) 90 L 03/15/19 22:00 Constitutional: Yes: Cachectic (Sedated) HENT: Yes: WNL, Atraumatic (Intubated), Normocephalic Respiratory: Yes: Mechanically Ventilated Gastrointestinal: Yes: WNL, Normal Bowel Sounds, Soft Renal/: Yes: WNL Cardiovascular: Yes: WNL, Regular Rate and Rhythm, Tachycardia JVD: No Carotid Bruit: No PMI: Non-Displaced Heart Sounds: Yes: S1, S2 Murmur: Yes: Systolic Murmur, Grade 2 Musculoskeletal: Yes: WNL Extremities: Yes: WNL Edema: No Peripheral Pulses: 1+ Left Doralis Pedis, 1+ Right Dorsalis Pedis Integumentary: Yes: WNL (Sedated) Psychiatric: Yes: WNL - Other Data Labs, Other Data: CBC, BMP 03/16/19 05:30 03/16/19 05:30 INR, PTT INR 1.49 (0.83-1.09) H 03/16/19 05:30 Troponin, BNP 03/15/19 03/15/19 15:01 23:00 Troponin I 0.06 H 0.06 H B-Natriuretic Peptide 4183.9 H Troponin, BNP 03/15/19 03/15/19 15:01 23:00 Troponin I 0.06 H 0.06 H B-Natriuretic Peptide 4183.9 H Assessment/Plan The patient is a 68-year-old man, we've a history of essential hypertension, pulmonary hypertension, on home oxygen, multiple pulmonary emboli on Xarelto, prostate cancer, Aspergillus, status post right lower lobectomy, now admitted with shortness of breath and respiratory failure. The patient is currently intubated and sedated. Hemodynamically stable. There is no evidence of ischemia nor acute coronary syndrome. No significant CHF. Suspect recurrent pulmonary emboli and or pneumonia. There is no need for further cardiac workup at this point. Continue supportive care and treatment. Please do not hesitate to call us PRN.
--- NOTE | 2019-03-16 14:17 | CON.ID ---
Consult Consult Specialty:: infectious diseases Referred by:: Reason for Consultation:: sepsis,intubation - History of Present Illness Chief Complaint: sob History of Present Illness: 68 yo M h/o PAH s/p R heart cath, on home O2 2.5L, multiple PE (most recent one 3 years ago) s/p clot retrival currently on xarelto, prostate CA, aspergillus s/ p R LLL lobectomy in 2006 and reactive airway disease BIBEMS for worsening shortness of breath. Per EMS, ED and the patient, he went to see his PMD 2 weeks ag for cough and worsening shortness of breath. He was diagnosed with PNA and given augmentin. He finished the abx 3 days ago with no relief of symptoms. Patient was started on daily steroid by his research tech at [facility] (Dr. Inman ) few months ago but he electively stopped taking it since last week. Denies fever, chills, chest pain, headache, n/v, urinary or bowel sx. it seems patient became more sob and hypoxic and had to be intubated and currently patient is intubated and sedated patient off of sedation is awake and alert,now sedated - History Source History Provided By: Medical Record Limitations to Obtaining History: Clinical Condition - Past Medical History Cardio/Vascular: Yes: HTN Pulmonary: Yes: Asthma, Pneumonia, Pulmonary Embolus - Alcohol/Substance Use Hx Alcohol Use: No - Smoking History Smoking history: Never smoked Have you smoked in the past 12 months: No Home Medications - Allergies Allergies/Adverse Reactions: Allergies Allergy/AdvReac Type Severity Reaction Status Date / Time ketorolac [From Toradol] AdvReac Difficulty Verified 03/15/19 16:56 Breathing - Home Medications Home Medications: Ambulatory Orders Digoxin [Lanoxin -] 0.125 mg PO DAILY 03/15/19 Montelukast Sodium [Singulair] 10 mg PO DAILY 03/15/19 Pantoprazole Sodium [Protonix -] 40 mg PO DAILY 03/15/19 Prednisone 10 mg PO DAILY 03/15/19 Rivaroxaban [Xarelto -] 20 mg PO DAILY 03/15/19 Review of Systems Unable to obtain ROS, reason: unable to obtain Physical Exam Vital Signs: Vital Signs Temperature 97.2 F L 03/16/19 10:00 Pulse Rate 110 H 03/16/19 12:00 Respiratory Rate 33 H 03/16/19 13:38 Blood Pressure 133/102 H 03/16/19 12:00 O2 Sat by Pulse Oximetry (%) 90 L 03/15/19 22:00 Constitutional: Yes: No Distress, Calm Cardiovascular: Yes: Tachycardia Respiratory: Yes: Intubated, Mechanically Ventilated Gastrointestinal: Yes: Normal Bowel Sounds, Soft Musculoskeletal: Yes: WNL Extremities: Yes: WNL Neurological: Yes: Other Psychiatric: Yes: Other Labs: CBC, BMP 03/16/19 05:30 03/16/19 05:30 Imaging - Results Chest X-ray: Report Reviewed, Image Reviewed Assessment/Plan patient with multiple medical problems who is now intubated and sedated all work up has been send ASSESSMENT AND PLAN: Respiratory Failure Pneumonia Severe Sepsis Lactic Acidosis Pulmonary HTN h/o PE h/o of aspergellosis h/o of lobectomy plan will continue empiric abx sputum cx nutrition as per icu close watch rest as per the team cc 40 min
--- NOTE | 2019-03-16 14:31 | ECHO ---
Name: DINORA SANTANA Exam:Adult Echocardiogram Study Date: 03/16/2019 09:34 AM Age: 68 yrs Reason For Study: ASSESS LVF Height: 66 in Weight: 140 lb BSA: 1.7 m2 MMode/2D Measurements & Calculations IVSd: 0.77 cm Ao root diam: 2.4 cm LVIDd: 4.4 cm LA dimension: 2.8 cm LVIDs: 3.8 cm LVPWd: 0.72 cm EDV(Teich): 86.0 ml LVOT diam: 2.0 cm ESV(Teich): 60.4 ml Doppler Measurements & Calculations MV E max giancarlo: 74.0 cm/sec Ao V2 max: 74.4 cm/sec MV A max giancarlo: 33.6 cm/sec Ao max P.2 mmHg MV E/A: 2.2 Ao V2 mean: 55.6 cm/sec MV dec time: 0.14 sec Ao mean P.0 mmHg Ao V2 VTI: 13.1 cm ETTA(I,D): 1.3 cm2 ETTA(V,D): 1.5 cm2 LV V1 max P.51 mmHg SV(LVOT): 17.4 ml LV V1 mean P.25 mmHg LV V1 max: 35.5 cm/sec LV V1 mean: 23.0 cm/sec LV V1 VTI: 5.5 cm TR max giancarlo: 328.8 cm/sec Med Peak E' Giancarlo: 10.2 cm/sec TR max P.4 mmHg Med E/e': 7.2 Lat Peak E' Giancarlo: 12.5 cm/sec Lat E/e': 5.9 Procedure The study was technically difficult with many images being suboptimal in quality. A complete two-dime nsional transthoracic echocardiogram was performed (2D, M-mode, Doppler and color flow Doppler). Left Ventricle The left ventricle is normal in size. Left ventricular systolic function is severely reduced. Ejectio n Fraction = 30-35%. There is severe global hypokinesis of the left ventricle. Right Ventricle The right ventricle is normal in size and function. Atria Normal left and right atrial size and function. Mitral Valve There is no mitral regurgitation noted. Tricuspid Valve There is moderate tricuspid regurgitation. There is mild pulmonary hypertension. Aortic Valve No hemodynamically significant valvular aortic stenosis. No aortic regurgitation is present. Pulmonic Valve There is no pulmonic valvular regurgitation. Great Vessels The aortic root is normal size. Pericardium/Pleura There is no pericardial effusion. Interpretation Summary The study was technically difficult with many images being suboptimal in quality. Left ventricular systolic function is severely reduced. There is severe global hypokinesis of the left ventricle. The left ventricle is normal in size. The right ventricle is normal in size and function. There is moderate tricuspid regurgitation. There is mild pulmonary hypertension. MD Pavel Mcguire 03/16/2019 02:31 PM
--- NOTE | 2019-03-16 17:31 | PN ---
Progress Note, Physician History of Present Illness: intubated and sedated - Current Medication List Current Medications: Active Medications Albuterol/Ipratropium (Duoneb -) 1 amp NEB RQID [facility] Last Admin: 03/16/19 11:18 Dose: 1 amp Albuterol/Ipratropium (Duoneb -) 1 amp NEB Q4H PRN PRN Reason: SHORTNESS OF BREATH Last Admin: 03/16/19 03:29 Dose: 1 amp Chlorhexidine Gluconate (Hibiclens For Decolonization -) 1 applic TP HS [facility] Last Admin: 03/15/19 22:14 Dose: 1 applic Digoxin (Lanoxin -) 0.125 mg PO DAILY [facility] Last Admin: 03/16/19 09:58 Dose: 0.125 mg Sodium Chloride (Normal Saline -) 1,000 mls @ 83 mls/hr IV ASDIR [facility] Last Admin: 03/16/19 01:45 Dose: 83 mls/hr Propofol (Diprivan -) 1,000,000 mcg in 100 mls @ 1.905 mls/hr IVPB TITR [facility]; Protocol Last Admin: 03/15/19 22:14 Dose: Not Given Fentanyl 500 mcg/ Dextrose 100 mls @ 0.2 mls/hr IVPB TITR [facility]; Protocol Last Admin: 03/15/19 22:14 Dose: 1 mcg/hr, 0.2 mls/hr Vancomycin HCl 1,250 mg/ (Dextrose) 250 mls @ 250 mls/2 hr IVPB Q24H [facility]; Protocol Piperacillin Sod/Tazobactam (Sod 3.375 gm/ Dextrose) 50 mls @ 100 mls/hr IVPB Q8H-IV [facility]; Protocol Methylprednisolone Sodium Succinate (Solu-Medrol -) 60 mg IVPUSH Q6H-IV [facility] Last Admin: 03/16/19 09:59 Dose: 60 mg Montelukast Sodium (Singulair -) 10 mg PO [facility] Mupirocin (Bactroban Ointment (For Decolonization) -) 1 applic NS BID [facility] Stop: 03/20/19 21:59 Last Admin: 03/16/19 09:59 Dose: 1 applic Pantoprazole Sodium (Protonix -) 40 mg PO DAILY [facility] Last Admin: 03/16/19 09:59 Dose: 40 mg Rivaroxaban (Xarelto) 20 mg PO DAILY@0800 [facility] Last Admin: 03/16/19 09:58 Dose: 20 mg - Objective Vital Signs: Vital Signs Temperature 97.2 F L 03/16/19 10:00 Pulse Rate 110 H 03/16/19 12:00 Respiratory Rate 33 H 03/16/19 13:38 Blood Pressure 133/102 H 03/16/19 12:00 O2 Sat by Pulse Oximetry (%) 90 L 03/15/19 22:00 Constitutional: Yes: No Distress HENT: Yes: Atraumatic Neck: Yes: Supple Cardiovascular: Yes: Regular Rate and Rhythm Respiratory: Yes: CTA Bilaterally Gastrointestinal: Yes: Normal Bowel Sounds Extremities: Yes: WNL Neurological: Yes: Alert, Oriented Labs: CBC, BMP 03/16/19 05:30 03/16/19 05:30 INR, PTT INR 1.49 (0.83-1.09) H 03/16/19 05:30 Problem List - Problems (1) Cor pulmonale Code(s): I27.81 - COR PULMONALE (CHRONIC) (2) Hypoxia Code(s): R09.02 - HYPOXEMIA (3) Pulmonary arterial hypertension Code(s): I27.21 - SECONDARY PULMONARY ARTERIAL HYPERTENSION (4) Respiratory distress Code(s): R06.03 - ACUTE RESPIRATORY DISTRESS (5) Lung infiltrate Code(s): R91.8 - OTHER NONSPECIFIC ABNORMAL FINDING OF LUNG FIELD Assessment/Plan Laboratory Tests 03/15/19 03/15/19 03/15/19 15:01 15:01 15:01 WBC RBC Hgb Hct MCV MCH MCHC RDW Plt Count MPV Absolute Neuts (auto) Neutrophils % Lymphocytes % Monocytes % Eosinophils % Basophils % Nucleated RBC % PT with INR 22.10 H INR 1.86 H PTT (Actin FS) 37.4 H D-Dimer Anticoagulation Therapy VBG pH 7.30 L POC VBG pCO2 62.3 H POC VBG pO2 33.6 VBG HCO3 31.3 H VBG O2 Sat (Laurent) 49.2 L VBG Base Excess 4.0 H O2 Delivery Device Oxygen Flow Rate Vent Mode Vent Rate Mechanical Rate Pressure Support Vent Sodium 136 Potassium 5.3 H Chloride 102 Carbon Dioxide 30 Anion Gap 5 L BUN 13 Creatinine 0.7 Creat Clearance w eGFR 112.15 Random Glucose 70 L Calcium 8.4 L Total Bilirubin 0.6 AST 38 H ALT 27 Alkaline Phosphatase 91 Troponin I B-Natriuretic Peptide Total Protein 6.4 Albumin 1.8 L Blood Type Antibody Screen 03/15/19 03/15/19 03/15/19 15:01 15:01 15:01 WBC RBC Hgb Hct MCV MCH MCHC RDW Plt Count MPV Absolute Neuts (auto) Neutrophils % Lymphocytes % Monocytes % Eosinophils % Basophils % Nucleated RBC % PT with INR INR PTT (Actin FS) D-Dimer 924 H Anticoagulation Therapy VBG pH POC VBG pCO2 POC VBG pO2 VBG HCO3 VBG O2 Sat (Laurent) VBG Base Excess O2 Delivery Device Oxygen Flow Rate Vent Mode Vent Rate Mechanical Rate Pressure Support Vent Sodium Potassium Chloride Carbon Dioxide Anion Gap BUN Creatinine Creat Clearance w eGFR Random Glucose Calcium Total Bilirubin AST ALT Alkaline Phosphatase Troponin I 0.06 H B-Natriuretic Peptide 4183.9 H Total Protein Albumin Blood Type Cancelled Antibody Screen Cancelled 03/15/19 03/15/19 15:21 20:02 WBC 6.7 RBC 4.29 Hgb 12.3 Hct 37.7 MCV 87.8 MCH 28.7 MCHC 32.7 RDW 15.7 Plt Count 168 MPV 7.0 L Absolute Neuts (auto) 5.2 Neutrophils % 76.8 Lymphocytes % 8.0 Monocytes % 14.5 H Eosinophils % 0.1 Basophils % 0.6 Nucleated RBC % 0 PT with INR INR PTT (Actin FS) D-Dimer Anticoagulation Therapy No Result Required. VBG pH POC VBG pCO2 POC VBG pO2 VBG HCO3 VBG O2 Sat (Laurent) VBG Base Excess O2 Delivery Device No Result Required. Oxygen Flow Rate No Result Required. Vent Mode No Result Required. Vent Rate No Result Required. Mechanical Rate No Result Required. Pressure Support Vent No Result Required. Sodium Potassium Chloride Carbon Dioxide Anion Gap BUN Creatinine Creat Clearance w eGFR Random Glucose Calcium Total Bilirubin AST ALT Alkaline Phosphatase Troponin I B-Natriuretic Peptide Total Protein Albumin Blood Type Antibody Screen Active Medications Generic Name Dose Route Start Last Admin Trade Name Freq PRN Reason Stop Dose Admin Albuterol/Ipratropium 1 amp 03/15/19 20:00 Duoneb - NEB RQID [facility] Albuterol/Ipratropium 1 amp 03/15/19 19:53 Duoneb - NEB Q4H PRN SHORTNESS OF BREATH Chlorhexidine Gluconate 1 applic 03/15/19 22:00 Hibiclens For Decolonization - TP HS [facility] Enoxaparin Sodium 40 mg 03/16/19 10:00 Lovenox - SQ DAILY [facility] Piperacillin Sod/Tazobactam 100 mls @ 200 mls/hr 03/16/19 01:00 Sod 4.5 gm/ Dextrose IVPB 03/16/19 01:29 ONCE ONE Protocol Vancomycin HCl 1,250 mg/ 250 mls @ 250 mls/2 hr 03/16/19 05:00 Dextrose IVPB 03/16/19 06:59 ONCE ONE Protocol Methylprednisolone Sodium Succinate 80 mg 03/15/19 21:00 Solu-Medrol - IVPUSH Q6H-IV [facility] Mupirocin 1 applic 03/15/19 22:00 Bactroban Ointment (For Decolonization) - NS 03/20/19 21:59 BID [facility] ASSESSMENT AND PLAN: Respiratory Failure Pneumonia Severe Sepsis Lactic Acidosis Pulmonary HTN h/o PE h/o of aspergellosis h/o of lobectomy plan will continue iv empiric abx iv steroids sputum cx nutrition pt is intubated dvt ppx ccc time 35 min
[2019-03-16] MEDS: PIPERACILLIN/TAZOB 3.375 GM 3.375 GM in DEXTROSE 5%-WATER - 50 ML IVPB SCH (17:32)
[2019-03-16] MEDS: MIDAZOLAM HCL 2 MG/2 ML SINGLE DOSE VIAL IVPUSH PRN (18:39)
[2019-03-16] MEDS: PROPOFOL 1,000,000 MCG/100 ML VIAL IVPB SCH (23:44)
[2019-03-16] MEDS: CHLORHEXIDINE GLUCONATE 4% CLEANSER FOR DECOLONIZATION TP SCH (23:45)
[2019-03-16] MEDS: MONTELUKAST NA 10 MG TABLET PO SCH (23:45)
[2019-03-17] MEDS: methylPREDNISolone NA SUCC 40 MG/1 ML VIAL IVPUSH SCH ×2 (03:22→10:27)
[2019-03-17] MEDS: PIPERACILLIN/TAZOB 3.375 GM 3.375 GM in DEXTROSE 5%-WATER - 50 ML IVPB SCH ×3 (03:22→17:55)
[2019-03-17] MEDS: MIDAZOLAM HCL 2 MG/2 ML SINGLE DOSE VIAL IVPUSH PRN ×2 (03:22→13:54)
[2019-03-17] MEDS ORDERED: fentaNYL CITRATE 250 MCG/5 ML VIAL ONE ×3 (04:06→20:20)
[2019-03-17] MEDS ORDERED: VANCOMYCIN HCL 1,250 MG in DEXTROSE 5%-WATER - 250 ML IVPB SCH (06:00)
[2019-03-17 07:18] LABS: HEMATOCRIT 34.6 % (35.4-49); HEMOGLOBIN 11.4 GM/dL (11.7-16.9); MCH 29.4 pg (25.7-33.7); MCHC 32.8 g/dl (32.0-35.9); MEAN CELL VOLUME 89.5 fl (80-96); MEAN PLT VOLUME 8.1 fl (7.5-11.1); PLATELET COUNT 155 K/MM3 (134-434); RBC 3.87 M/mm3 (4.00-5.60); WHITE BLOOD COUNT 9.9 K/mm3 (4.0-10.0)
[2019-03-17 07:20] LABS: ANION GAP 5 MMOL/L (8-16); BLOOD UREA NITROGEN 14 mg/dL (7-18); CALCIUM 7.4 mg/dL (8.5-10.1); CHLORIDE 109 mmol/L (98-107); CO2 25 mmol/L (21-32); CREATININE 0.8 mg/dL (0.55-1.3); GLUCOSE,RANDOM 122 mg/dL (74-106); MAGNESIUM 2.1 mg/dL (1.8-2.4); PHOSPHOROUS 3.8 mg/dL (2.5-4.9); SODIUM 139 mmol/L (136-145)
[2019-03-17] MEDS: ALBUTEROL SO4 2.5/IPRATROPIUM 0.5 INH SOL 3 ML VIAL.NEB. NEB SCH ×4 (07:25→20:22)
[2019-03-17] MEDS ORDERED: PIPERACILLIN/TAZOBACTAM 3.375 GM VIAL IVPB ONE ×2 (10:18→17:50)
[2019-03-17] MEDS ORDERED: DEXTROSE 5%-WATER - 50 ML IVPB ONE ×2 (10:18→17:51)
[2019-03-17] MEDS: RIVAROXABAN 20 MG TABLET PO SCH (10:27)
[2019-03-17] MEDS: PANTOPRAZOLE 40 MG TABLET (FP) PO SCH (10:27)
[2019-03-17] MEDS: MUPIROCIN 2% TOPICAL OINTMENT FOR DECOLONIZATION NS SCH ×2 (10:27→21:53)
[2019-03-17] MEDS: DIGOXIN 0.125 MG TABLET (FP) PO SCH (10:27)
--- NOTE | 2019-03-17 11:09 | PN ---
Progress Note, Physician History of Present Illness: intubated and sedated - Current Medication List Current Medications: Active Medications Albuterol/Ipratropium (Duoneb -) 1 amp NEB RQID [facility] Last Admin: 03/17/19 11:01 Dose: 1 amp Albuterol/Ipratropium (Duoneb -) 1 amp NEB Q4H PRN PRN Reason: SHORTNESS OF BREATH Last Admin: 03/16/19 03:29 Dose: 1 amp Chlorhexidine Gluconate (Hibiclens For Decolonization -) 1 applic TP HS [facility] Last Admin: 03/16/19 23:45 Dose: 1 applic Digoxin (Lanoxin -) 0.125 mg PO DAILY [facility] Last Admin: 03/17/19 10:27 Dose: 0.125 mg Sodium Chloride (Normal Saline -) 1,000 mls @ 83 mls/hr IV ASDIR [facility] Last Admin: 03/16/19 23:44 Dose: 83 mls/hr Propofol (Diprivan -) 1,000,000 mcg in 100 mls @ 1.905 mls/hr IVPB TITR [facility]; Protocol Last Admin: 03/16/19 23:44 Dose: Not Given Fentanyl 500 mcg/ Dextrose 100 mls @ 0.2 mls/hr IVPB TITR [facility]; Protocol Last Titration: 03/16/19 19:30 Dose: 75 mcg/hr, 15 mls/hr Vancomycin HCl 1,250 mg/ (Dextrose) 250 mls @ 250 mls/2 hr IVPB Q24H [facility]; Protocol Piperacillin Sod/Tazobactam (Sod 3.375 gm/ Dextrose) 50 mls @ 100 mls/hr IVPB Q8H-IV [facility]; Protocol Last Admin: 03/17/19 10:27 Dose: 100 mls/hr Methylprednisolone Sodium Succinate (Solu-Medrol -) 60 mg IVPUSH Q6H-IV [facility] Last Admin: 03/17/19 10:27 Dose: 60 mg Midazolam HCl (Versed -) 2 mg IVPUSH Q4H PRN PRN Reason: AGITATION Last Admin: 03/17/19 03:22 Dose: 2 mg Montelukast Sodium (Singulair -) 10 mg PO HS [facility] Last Admin: 03/16/19 23:45 Dose: 10 mg Mupirocin (Bactroban Ointment (For Decolonization) -) 1 applic NS BID [facility] Stop: 03/20/19 21:59 Last Admin: 03/17/19 10:27 Dose: 1 applic Pantoprazole Sodium (Protonix -) 40 mg PO DAILY [facility] Last Admin: 03/17/19 10:27 Dose: 40 mg Rivaroxaban (Xarelto) 20 mg PO DAILY@0800 [facility] Last Admin: 03/17/19 10:27 Dose: 20 mg - Objective Vital Signs: Vital Signs Temperature 97 F L 03/17/19 02:00 Pulse Rate 107 H 03/17/19 10:27 Respiratory Rate 14 03/17/19 10:15 Blood Pressure 90/69 03/17/19 08:00 O2 Sat by Pulse Oximetry (%) 99 03/17/19 08:13 Constitutional: Yes: Calm HENT: Yes: Atraumatic Neck: Yes: Supple Cardiovascular: Yes: Regular Rate and Rhythm Respiratory: Yes: Rhonchi Gastrointestinal: Yes: Normal Bowel Sounds Extremities: Yes: WNL Edema: No Neurological: Yes: Other (intubated and sedated) Labs: CBC, BMP 03/17/19 05:30 03/17/19 05:30 INR, PTT INR 1.49 (0.83-1.09) H 03/16/19 05:30 Problem List - Problems (1) Cor pulmonale Code(s): I27.81 - COR PULMONALE (CHRONIC) (2) Hypoxia Code(s): R09.02 - HYPOXEMIA (3) Pulmonary arterial hypertension Code(s): I27.21 - SECONDARY PULMONARY ARTERIAL HYPERTENSION (4) Respiratory distress Code(s): R06.03 - ACUTE RESPIRATORY DISTRESS (5) Lung infiltrate Code(s): R91.8 - OTHER NONSPECIFIC ABNORMAL FINDING OF LUNG FIELD Assessment/Plan ASSESSMENT AND PLAN: Respiratory Failure Pneumonia Severe Sepsis Lactic Acidosis Pulmonary HTN h/o PE h/o of aspergellosis h/o of lobectomy plan will continue iv empiric abx iv steroids sputum cx nutrition pt is intubated dvt ppx cc time 40 min
--- NOTE | 2019-03-17 11:53 | PN ---
Teaching Attending Note Name of Resident: Bulmaro Whitney ATTENDING PHYSICIAN STATEMENT I saw and evaluated the patient. I reviewed the resident's note and discussed the case with the resident. I agree with the resident's findings and plan as documented. SUBJECTIVE: Pt seen and examined in the ICU. Remains intubated, sedated. Vented on volume assist control 40% FiO2, PEEP. Peak pressures 24, Pplat 21. CTA chest showing RUL air fluid levels, patchy left sided infiltrates, findings c/w pulmonary HTN. Unclear if findings acute. OBJECTIVE: Vital Signs Period Temp Pulse Resp BP Sys/Wright Pulse Ox Last 24 Hr 97 F-97.4 F 68-111 12-33 86-148/69-126 99 Intake & Output 03/14/19 03/15/19 03/16/19 03/17/19 23:59 23:59 23:59 23:59 Intake Total 1000 2840 Output Total 100 1900 Balance 900 940 Weight 51.3 kg 69.672 kg Gen: intubated, sedated Heart: RRR Lung: scattered rhonchi Abd: soft, nontender Ext: no edema CBC, BMP 03/17/19 05:30 03/17/19 05:30 Active Medications Albuterol/Ipratropium (Duoneb -) 1 amp NEB RQID [facility] Last Admin: 03/17/19 11:01 Dose: 1 amp Albuterol/Ipratropium (Duoneb -) 1 amp NEB Q4H PRN PRN Reason: SHORTNESS OF BREATH Last Admin: 03/16/19 03:29 Dose: 1 amp Chlorhexidine Gluconate (Hibiclens For Decolonization -) 1 applic TP HS [facility] Last Admin: 03/16/19 23:45 Dose: 1 applic Digoxin (Lanoxin -) 0.125 mg PO DAILY [facility] Last Admin: 03/17/19 10:27 Dose: 0.125 mg Sodium Chloride (Normal Saline -) 1,000 mls @ 83 mls/hr IV ASDIR [facility] Last Admin: 03/16/19 23:44 Dose: 83 mls/hr Propofol (Diprivan -) 1,000,000 mcg in 100 mls @ 1.905 mls/hr IVPB TITR [facility]; Protocol Last Admin: 03/16/19 23:44 Dose: Not Given Fentanyl 500 mcg/ Dextrose 100 mls @ 0.2 mls/hr IVPB TITR [facility]; Protocol Last Titration: 03/16/19 19:30 Dose: 75 mcg/hr, 15 mls/hr Vancomycin HCl 1,250 mg/ (Dextrose) 250 mls @ 250 mls/2 hr IVPB Q24H [facility]; Protocol Piperacillin Sod/Tazobactam (Sod 3.375 gm/ Dextrose) 50 mls @ 100 mls/hr IVPB Q8H-IV [facility]; Protocol Last Admin: 03/17/19 10:27 Dose: 100 mls/hr Methylprednisolone Sodium Succinate (Solu-Medrol -) 60 mg IVPUSH Q6H-IV [facility] Last Admin: 03/17/19 10:27 Dose: 60 mg Midazolam HCl (Versed -) 2 mg IVPUSH Q4H PRN PRN Reason: AGITATION Last Admin: 03/17/19 03:22 Dose: 2 mg Montelukast Sodium (Singulair -) 10 mg PO HS [facility] Last Admin: 03/16/19 23:45 Dose: 10 mg Mupirocin (Bactroban Ointment (For Decolonization) -) 1 applic NS BID [facility] Stop: 03/20/19 21:59 Last Admin: 03/17/19 10:27 Dose: 1 applic Pantoprazole Sodium (Protonix -) 40 mg PO DAILY [facility] Last Admin: 03/17/19 10:27 Dose: 40 mg Rivaroxaban (Xarelto) 20 mg PO DAILY@0800 [facility] Last Admin: 03/17/19 10:27 Dose: 20 mg ASSESSMENT AND PLAN: Acute on Chronic Hypoxic and Hypercapneic Respiratory Failure Pneumonia Severe Sepsis Lactic Acidosis LV Systolic Dysfunction Pulmonary HTN h/o Chronic Pulmonary Emboli s/p RLL lobectomy h/o Aspergillosis - continue antibiotics - f/u cultures - can decrease medrol - inhaled bronchodilators standing and PRN - taper Fio2 to keep spO2 >90% - continue anticoagulation - daily sedation vacations to assess mental status - spontaneous breathing trials as tolerated when mental status improved - enteral feeds - DVT/GI prophylaxis - continue ICU monitoring critical care time spent in reviewing chart, evaluating patient and formulating plan 35 min
--- NOTE | 2019-03-17 12:10 | PN ---
Progress Note, Physician History of Present Illness: continues to be intubated sedated - Current Medication List Current Medications: Active Medications Albuterol/Ipratropium (Duoneb -) 1 amp NEB RQID [facility] Last Admin: 03/17/19 11:01 Dose: 1 amp Albuterol/Ipratropium (Duoneb -) 1 amp NEB Q4H PRN PRN Reason: SHORTNESS OF BREATH Last Admin: 03/16/19 03:29 Dose: 1 amp Chlorhexidine Gluconate (Hibiclens For Decolonization -) 1 applic TP HS [facility] Last Admin: 03/16/19 23:45 Dose: 1 applic Digoxin (Lanoxin -) 0.125 mg PO DAILY [facility] Last Admin: 03/17/19 10:27 Dose: 0.125 mg Sodium Chloride (Normal Saline -) 1,000 mls @ 83 mls/hr IV [facility]IR [facility] Last Admin: 03/16/19 23:44 Dose: 83 mls/hr Propofol (Diprivan -) 1,000,000 mcg in 100 mls @ 1.905 mls/hr IVPB TITR [facility]; Protocol Last Admin: 03/16/19 23:44 Dose: Not Given Fentanyl 500 mcg/ Dextrose 100 mls @ 0.2 mls/hr IVPB TITR [facility]; Protocol Last Titration: 03/16/19 19:30 Dose: 75 mcg/hr, 15 mls/hr Vancomycin HCl 1,250 mg/ (Dextrose) 250 mls @ 250 mls/2 hr IVPB Q24H [facility]; Protocol Piperacillin Sod/Tazobactam (Sod 3.375 gm/ Dextrose) 50 mls @ 100 mls/hr IVPB Q8H-IV [facility]; Protocol Last Admin: 03/17/19 10:27 Dose: 100 mls/hr Methylprednisolone Sodium Succinate (Solu-Medrol -) 40 mg IVPUSH BID [facility] Midazolam HCl (Versed -) 2 mg IVPUSH Q4H PRN PRN Reason: AGITATION Last Admin: 03/17/19 03:22 Dose: 2 mg Montelukast Sodium (Singulair -) 10 mg PO HS [facility] Last Admin: 03/16/19 23:45 Dose: 10 mg Mupirocin (Bactroban Ointment (For Decolonization) -) 1 applic NS BID [facility] Stop: 03/20/19 21:59 Last Admin: 03/17/19 10:27 Dose: 1 applic Pantoprazole Sodium (Protonix -) 40 mg PO DAILY [facility] Last Admin: 03/17/19 10:27 Dose: 40 mg Rivaroxaban (Xarelto) 20 mg PO DAILY@0800 [facility] Last Admin: 03/17/19 10:27 Dose: 20 mg - Objective Vital Signs: Vital Signs Temperature 97 F L 03/17/19 02:00 Pulse Rate 107 H 03/17/19 10:27 Respiratory Rate 14 03/17/19 10:15 Blood Pressure 92/73 03/17/19 10:00 O2 Sat by Pulse Oximetry (%) 99 03/17/19 08:13 Constitutional: Yes: No Distress Cardiovascular: Yes: Regular Rate and Rhythm Respiratory: Yes: Intubated, Mechanically Ventilated Gastrointestinal: Yes: Normal Bowel Sounds, Soft Musculoskeletal: Yes: WNL Extremities: Yes: WNL Neurological: Yes: Other Psychiatric: Yes: Other Labs: CBC, BMP 03/17/19 05:30 03/17/19 05:30 INR, PTT INR 1.49 (0.83-1.09) H 03/16/19 05:30 - ....Imaging Chest X-ray: Report Reviewed, Image Reviewed Assessment/Plan patient with multiple medical problems who is now intubated and sedated all work up has been send ASSESSMENT AND PLAN: Respiratory Failure Pneumonia Severe Sepsis Lactic Acidosis Pulmonary HTN h/o PE h/o of aspergellosis h/o of lobectomy await for sputum cx plan continue zosyn might need vanco resp support rest as per icu nutrition cc 38min
[2019-03-17] MEDS ORDERED: SODIUM CHLORIDE 0.9% 500 ML INFUS.BAG IV ONE (14:55)
--- NOTE | 2019-03-17 15:32 | PN ---
Progress Note (short form) - Note Progress Note: HD# 3 ICU Day 3 Intubation Day 2 Overnight Events: No acute events reported overnight. Sedation holiday during rounds. Pt awake and alert. Became tachypneic and tachycardic. Restarted sedation. CTA showed pt is s/p RIGHT lower lobe lobectomy rather than left as previously reported. OBJECTIVE: Vital Signs Period Temp Pulse Resp BP Sys/Wright Pulse Ox Last 24 Hr 97 F-97.4 F 68-113 14-31 86-148/69-126 99 Intake & Output 03/17/19 03/17/19 03/17/19 06:59 14:59 22:59 Weight 69.4 kg Other: Height 1.68 m Body Mass Index (BMI) 24.7 Lines: - PIV Drains: - Ovalle Supplemental Oxygen: Ventilator Mode: AC Vent rate: 14 Tv: 400 PEEP: 5 FiO2: 40% Physical Exams: GENERAL: Intubated but the patient is awake, alert, appears fully oriented. HEAD: Normal with no signs of trauma. LUNGS: Tachypenic, breathing at a rate much higher than vent settings. Breath sounds present bilaterally. Decreased in bilateral lower lobes. No stridor, rales, or wheeze. HEART: Borderline tachycardic rate with regular rhythm, S1, S2 without murmur, rub or gallop. ABDOMEN: Soft, nontender, nondistended. EXTREMITIES: 2+ pulses, warm, well-perfused, no pretibial edema. PSYCH: Normal affect. SKIN: Warm and dry Drips: - Normal Saline - Propofol - Fentanyl Anti Infectives: - Vancomycin, Day 3 - Zosyn, Day 3 Microbiology 03/15/19 19:02 Blood - Peripheral Venous Blood Culture - Preliminary NO GROWTH OBTAINED AFTER 24 HOURS, INCUBATION TO CONTINUE FOR 4 DAYS. 03/15/19 19:02 Blood - Peripheral Venous Blood Culture - Preliminary NO GROWTH OBTAINED AFTER 24 HOURS, INCUBATION TO CONTINUE FOR 4 DAYS. Active Medications Albuterol/Ipratropium (Duoneb -) 1 amp NEB RQID [facility] Last Admin: 03/17/19 11:01 Dose: 1 amp Albuterol/Ipratropium (Duoneb -) 1 amp NEB Q4H PRN PRN Reason: SHORTNESS OF BREATH Last Admin: 03/16/19 03:29 Dose: 1 amp Chlorhexidine Gluconate (Hibiclens For Decolonization -) 1 applic TP HS [facility] Last Admin: 03/16/19 23:45 Dose: 1 applic Digoxin (Lanoxin -) 0.125 mg PO DAILY [facility] Last Admin: 03/17/19 10:27 Dose: 0.125 mg Propofol (Diprivan -) 1,000,000 mcg in 100 mls @ 1.905 mls/hr IVPB TITR [facility]; Protocol Last Admin: 03/16/19 23:44 Dose: Not Given Fentanyl 500 mcg/ Dextrose 100 mls @ 0.2 mls/hr IVPB TITR [facility]; Protocol Last Titration: 03/16/19 19:30 Dose: 75 mcg/hr, 15 mls/hr Vancomycin HCl 1,250 mg/ (Dextrose) 250 mls @ 250 mls/2 hr IVPB Q24H [facility]; Protocol Piperacillin Sod/Tazobactam (Sod 3.375 gm/ Dextrose) 50 mls @ 100 mls/hr IVPB Q8H-IV [facility]; Protocol Last Admin: 03/17/19 10:27 Dose: 100 mls/hr Methylprednisolone Sodium Succinate (Solu-Medrol -) 40 mg IVPUSH BID [facility] Midazolam HCl (Versed -) 2 mg IVPUSH Q4H PRN PRN Reason: AGITATION Last Admin: 03/17/19 13:54 Dose: 2 mg Montelukast Sodium (Singulair -) 10 mg PO HS [facility] Last Admin: 03/16/19 23:45 Dose: 10 mg Mupirocin (Bactroban Ointment (For Decolonization) -) 1 applic NS BID [facility] Stop: 03/20/19 21:59 Last Admin: 03/17/19 10:27 Dose: 1 applic Pantoprazole Sodium (Protonix -) 40 mg PO DAILY [facility] Last Admin: 03/17/19 10:27 Dose: 40 mg Rivaroxaban (Xarelto) 20 mg PO DAILY@0800 [facility] Last Admin: 03/17/19 10:27 Dose: 20 mg ASSESSMENT/PLAN: 68 yo M h/o PAH s/p R heart cath but not on any medication, on home oxygen 2.5 LPM, multiple PE (most recent one 3 years ago) s/p clot retrieval currently on Xarelto, prostate CA, h/o pulmonary Aspergillus s/p LLL lobectomy in 2007 and reactive airway disease. Admitted to the ICU for acute on chronic hypercapnic respiratory failure. Neuro (& Psych): - Alert and seemingly oriented with sedation held. Will restart Propofol and Fentanyl given respiratory status. PRN Versed for agitation. Endocrine: - Will trend electrolytes Cardiovascular: - Consult Dr. Altamirano - Tachycardic with MAPs maintained above 65%. Suspect secondary to sepsis versus PE. - Continue Digoxin per home dose. Unsure of significant cardiac history. Awaiting outside records. - ECHO revealed severe LV dysfunction. Will closely monitor fluid status. Noted only mild pulmonary hypertension. Suspect more severe disease than described given documented history and CTA findings. Pulm / Resp: - Outpatient pneumonia diagnosis s/p Augmentin course. Infiltrates noted on CXR. Continue antibiotics, bronchodilators, Methylprednisolone, and Singulare. - H/o PE. Reports good compliance with Xeralto; to be continued inpatient. Poorly timed contrast load on CTA. No evidence of massive PE. Awaiting records for comparison. - H/o of RIGHT lower lobe lobectomy insetting of Aspergillosis infection. - Record request sent for [facility] records. Gastrointestinal: - Continue home Pantoprazole. Genitourinary: - Ovalle in place for strict I/Os. Infectious Disease: - Consult Dr. Cody - Tachycardic and tachypneic on arrival with elevated lactic acid. Afebrile overnight. Possible pneumonia. Ordered sputum culture and urine pneumonia antigen test. Empiric Vancomycin and Zosyn antibiotics per ID team. - Blood cultures pending with [facility]GT[facility]. FEN: - IVF: Tube feeds per dietary Prophylaxis: - DVT: Xarelto - GI: Pantoprazole Dispo: Pt to remain in ICU while intubated and on sedating drip. Bulmaro Whitney MD, PGY1 ICU Consult Service Critical Care Total Critical Care Time (in minutes): 40 Critical Care Statement: The care of this patient involved high complexity decision making to prevent further life threatening deterioration of the patient 's condition and/or to evaluate & treat vital organ system(s) failure or risk of failure.
[2019-03-17] MEDS: FENTANYL INJECTION 500 MCG in DEXTROSE 5%-WATER - 90 ML IVPB SCH ×2 (19:17→21:53)
--- NOTE | 2019-03-17 21:24 | HOSP ---
Subjective - Review of Symptoms Events since last encounter: Around 9 pm patient became tachycardic, last night patient given pushes of Versed and BP dropped. Did not want to give pushes of Versed and drop the pressure again. Precedex ordered to help with tachycardia, and has less effect on BP. Can titrate down on fentanyl with Precedex on board. Tachycardia persisted, 1 of ativan given, tahycardia likely 2/2 to agitation. Physical Examination Vital Signs: Vital Signs Temperature 97.1 F L 03/17/19 18:41 Pulse Rate 110 H 03/17/19 16:10 Respiratory Rate 26 H 03/17/19 21:00 Blood Pressure 86/72 L 03/17/19 18:41 O2 Sat by Pulse Oximetry (%) 99 03/17/19 08:13 Labs: CBC, BMP 03/17/19 05:30 03/17/19 05:30 Visit type - Emergency Visit Emergency Visit: No - New Patient This patient is new to me today: Yes Date on this admission: 03/18/19 - Critical Care Critical Care patient: Yes Total Critical Care Time (in minutes): 35 Critical Care Statement: The care of this patient involved high complexity decision making to prevent further life threatening deterioration of the patient 's condition and/or to evaluate & treat vital organ system(s) failure or risk of failure.
[2019-03-17] MEDS: DEXMEDETOMIDINE HCL 200 MCG in SODIUM CHLORIDE 48 ML IVPB SCH (21:53)
[2019-03-17] MEDS: MONTELUKAST NA 10 MG TABLET PO SCH (21:53)
[2019-03-17] MEDS: CHLORHEXIDINE GLUCONATE 4% CLEANSER FOR DECOLONIZATION TP SCH (21:53)
[2019-03-17] MEDS ORDERED: methylPREDNISolone NA SUCC 40 MG/1 ML VIAL IVPUSH SCH (22:00)
[2019-03-17] MEDS ORDERED: LORazepam 2 MG/ML SDV VIAL IVPUSH ONE (22:58)
[2019-03-18] MEDS ORDERED: PIPERACILLIN/TAZOBACTAM 3.375 GM VIAL IVPB ONE ×3 (01:48→17:10)
[2019-03-18] MEDS ORDERED: DEXTROSE 5%-WATER - 50 ML IVPB ONE ×2 (01:48→09:38)
[2019-03-18] MEDS: PIPERACILLIN/TAZOB 3.375 GM 3.375 GM in DEXTROSE 5%-WATER - 50 ML IVPB SCH ×3 (01:59→17:17)
[2019-03-18 06:49] LABS: HEMATOCRIT 33.6 % (35.4-49); HEMOGLOBIN 10.8 GM/dL (11.7-16.9); MCHC 32.1 g/dl (32.0-35.9); MEAN CELL VOLUME 90.2 fl (80-96); MEAN PLT VOLUME 7.8 fl (7.5-11.1); PLATELET COUNT 140 K/MM3 (134-434); RBC 3.72 M/mm3 (4.00-5.60); RDW 16.1 % (11.9-15.9); WHITE BLOOD COUNT 9.9 K/mm3 (4.0-10.0)
[2019-03-18 07:14] LABS: ANION GAP 6 MMOL/L (8-16); BLOOD UREA NITROGEN 18 mg/dL (7-18); CHLORIDE 113 mmol/L (98-107); CO2 23 mmol/L (21-32); CREATININE 0.9 mg/dL (0.55-1.3); GLUCOSE,RANDOM 126 mg/dL (74-106); MAGNESIUM 2.1 mg/dL (1.8-2.4); PHOSPHOROUS 3.4 mg/dL (2.5-4.9); POTASSIUM 4.5 mmol/L (3.5-5.1); SODIUM 142 mmol/L (136-145)
[2019-03-18] MEDS: ALBUTEROL SO4 2.5/IPRATROPIUM 0.5 INH SOL 3 ML VIAL.NEB. NEB SCH ×4 (07:30→19:43)
[2019-03-18 07:35] LABS: CALCIUM 6.8 mg/dL (8.5-10.1)
[2019-03-18] MEDS: SODIUM CHLORIDE 1,000 ML IV SCH (08:51)
[2019-03-18] MEDS: RIVAROXABAN 20 MG TABLET PO SCH (08:52)
--- NOTE | 2019-03-18 09:19 | PN ---
Progress Note (short form) - Note Progress Note: Patient seen and examined: -afebrile -patient remains intubated on precedex this AM -failed SBT yesterday -tachycardia overnight improved w/ IV fluid bolus -on SBT this AM Current Medications Albuterol/Ipratropium (Duoneb -) 1 amp NEB RQID [facility] Last Admin: 03/18/19 07:30 Dose: 1 amp Albuterol/Ipratropium (Duoneb -) 1 amp NEB Q4H PRN PRN Reason: SHORTNESS OF BREATH Last Admin: 03/16/19 03:29 Dose: 1 amp Chlorhexidine Gluconate (Hibiclens For Decolonization -) 1 applic TP HS [facility] Last Admin: 03/17/19 21:53 Dose: 1 applic Digoxin (Lanoxin -) 0.125 mg PO DAILY [facility] Last Admin: 03/17/19 10:27 Dose: 0.125 mg Fentanyl 500 mcg/ Dextrose 100 mls @ 0.2 mls/hr IVPB TITR [facility]; Protocol Last Titration: 03/18/19 09:10 Dose: 0 mcg/hr, 0 mls/hr Vancomycin HCl 1,250 mg/ (Dextrose) 250 mls @ 250 mls/2 hr IVPB Q24H [facility]; Protocol Last Admin: 03/18/19 08:51 Dose: 250 mls/2 hr Piperacillin Sod/Tazobactam (Sod 3.375 gm/ Dextrose) 50 mls @ 100 mls/hr IVPB Q8H-IV [facility]; Protocol Last Admin: 03/18/19 01:59 Dose: 100 mls/hr Dexmedetomidine HCl 200 mcg/ (Sodium Chloride) 50 mls @ 3.47 mls/hr IVPB TITR [facility] Last Infusion: 03/18/19 09:05 Dose: 0 mcg/kg/hr, 0 mls/hr Sodium Chloride (Normal Saline -) 1,000 mls @ 83 mls/hr IV ASDIR [facility] Last Admin: 03/18/19 08:51 Dose: 83 mls/hr Methylprednisolone Sodium Succinate (Solu-Medrol -) 40 mg IVPUSH BID [facility] Last Admin: 03/17/19 21:52 Dose: 40 mg Montelukast Sodium (Singulair -) 10 mg PO HS [facility] Last Admin: 03/17/19 21:53 Dose: 10 mg Mupirocin (Bactroban Ointment (For Decolonization) -) 1 applic NS BID [facility] Stop: 03/20/19 21:59 Last Admin: 03/17/19 21:53 Dose: 1 applic Pantoprazole Sodium (Protonix -) 40 mg PO DAILY [facility] Last Admin: 03/17/19 10:27 Dose: 40 mg Rivaroxaban (Xarelto) 20 mg PO DAILY@0800 [facility] Last Admin: 03/18/19 08:52 Dose: 20 mg Vital Signs Period Temp Pulse Resp BP Sys/Wright Pulse Ox Last 24 Hr 97.1 F-98.4 F 100-137 10-33 70-127/55-89 95-99 Intake & Output 03/15/19 03/16/19 03/17/19 03/18/19 23:59 23:59 23:59 23:59 Intake Total 1000 2840 1140 Output Total 100 1800 Balance 900 1040 1140 Weight 51.3 kg 69.672 kg 69.4 kg Exam: General: intubated and sedated on precedex HEENT: R>L. no JVD Pulm: crackles in bases w/ decreased RUL CV: tachy, no m/r/g Abd: +BS, SNTND Ext: WWP, no edema Neuro: awake, following simple commands, BARON CBC, BMP 03/18/19 05:30 03/18/19 05:30 CXR: ETT in good position. unchanged from previous Microbiology 03/15/19 19:02 Blood - Peripheral Venous Blood Culture - Preliminary NO GROWTH OBTAINED AFTER 48 HOURS, INCUBATION TO CONTINUE FOR 3 DAYS. 03/15/19 19:02 Blood - Peripheral Venous Blood Culture - Preliminary NO GROWTH OBTAINED AFTER 48 HOURS, INCUBATION TO CONTINUE FOR 3 DAYS. ASSESSMENT AND PLAN: Acute on Chronic Hypoxic and Hypercapneic Respiratory Failure Pneumonia Severe Sepsis Lactic Acidosis LV Systolic Dysfunction Pulmonary HTN h/o Chronic Pulmonary Emboli s/p RLL lobectomy h/o Aspergillosis - continue antibiotics: zosyn/vanco - send sputum culture today - can solu-medrol wean: 40->30 today - inhaled bronchodilators standing and PRN - taper Fio2 to keep spO2 >90% - continue anticoagulation - daily sedation vacations to assess mental status - spontaneous breathing trials as tolerated when mental status improved - enteral feeds - DVT/GI prophylaxis - continue ICU monitoring critical care time spent in reviewing chart, evaluating patient and formulating plan 35 min
[2019-03-18] MEDS: DIGOXIN 0.125 MG TABLET (FP) PO SCH (09:39)
[2019-03-18] MEDS: methylPREDNISolone NA SUCC 40 MG/1 ML VIAL IVPUSH SCH ×2 (09:39→21:42)
[2019-03-18] MEDS: PANTOPRAZOLE 40 MG TABLET (FP) PO SCH (09:39)
[2019-03-18] MEDS: MUPIROCIN 2% TOPICAL OINTMENT FOR DECOLONIZATION NS SCH ×2 (09:41→21:40)
[2019-03-18 10:29] LABS: ARTERIAL BLD GAS O2 SATURATION 92.1 % (95-98); ARTERIAL BLOOD GAS BASE EXCESS -4.3 meq/l (-2-2); ARTERIAL BLOOD GAS PCO2 41.8 mmHg (35-45); ARTERIAL BLOOD GAS PO2 72.8 mmHg (80-105); ARTERIAL BLOOD GAS pH 7.32 (7.35-7.45)
[2019-03-18 10:31] LABS: ALLENS TEST POSITIVE
--- NOTE | 2019-03-18 12:44 | PN ---
Progress Note, Physician History of Present Illness: intubated sedated stable - Current Medication List Current Medications: Active Medications Albuterol/Ipratropium (Duoneb -) 1 amp NEB RQID [facility] Last Admin: 03/18/19 11:01 Dose: 1 amp Albuterol/Ipratropium (Duoneb -) 1 amp NEB Q4H PRN PRN Reason: SHORTNESS OF BREATH Last Admin: 03/16/19 03:29 Dose: 1 amp Chlorhexidine Gluconate (Hibiclens For Decolonization -) 1 applic TP HS [facility] Last Admin: 03/17/19 21:53 Dose: 1 applic Digoxin (Lanoxin -) 0.125 mg PO DAILY [facility] Last Admin: 03/18/19 09:39 Dose: 0.125 mg Fentanyl 500 mcg/ Dextrose 100 mls @ 0.2 mls/hr IVPB TITR [facility]; Protocol Last Titration: 03/18/19 09:10 Dose: 0 mcg/hr, 0 mls/hr Piperacillin Sod/Tazobactam (Sod 3.375 gm/ Dextrose) 50 mls @ 100 mls/hr IVPB Q8H-IV [facility]; Protocol Last Admin: 03/18/19 09:39 Dose: 100 mls/hr Dexmedetomidine HCl 200 mcg/ (Sodium Chloride) 50 mls @ 3.47 mls/hr IVPB TITR [facility] Last Infusion: 03/18/19 11:00 Dose: 0.2 mcg/kg/hr, 3.47 mls/hr Sodium Chloride (Normal Saline -) 1,000 mls @ 83 mls/hr IV ASDIR [facility] Last Admin: 03/18/19 08:51 Dose: 83 mls/hr Methylprednisolone Sodium Succinate (Solu-Medrol -) 30 mg IVPUSH BID [facility] Last Admin: 03/18/19 09:39 Dose: 30 mg Montelukast Sodium (Singulair -) 10 mg PO HS [facility] Last Admin: 03/17/19 21:53 Dose: 10 mg Mupirocin (Bactroban Ointment (For Decolonization) -) 1 applic NS BID [facility] Stop: 03/20/19 21:59 Last Admin: 03/18/19 09:41 Dose: 1 applic Pantoprazole Sodium (Protonix -) 40 mg PO DAILY [facility] Last Admin: 03/18/19 09:39 Dose: 40 mg Rivaroxaban (Xarelto) 20 mg PO DAILY@0800 [facility] Last Admin: 03/18/19 08:52 Dose: 20 mg - Objective Vital Signs: Vital Signs Temperature 97.3 F L 03/18/19 10:00 Pulse Rate 111 H 03/18/19 12:00 Respiratory Rate 11 03/18/19 12:00 Blood Pressure 81/70 L 03/18/19 12:00 O2 Sat by Pulse Oximetry (%) 97 03/18/19 10:45 Constitutional: Yes: No Distress Cardiovascular: Yes: Regular Rate and Rhythm Respiratory: Yes: Intubated, Mechanically Ventilated Gastrointestinal: Yes: Normal Bowel Sounds, Soft Musculoskeletal: Yes: WNL Extremities: Yes: WNL Neurological: Yes: Alert, Oriented Psychiatric: Yes: Alert, Oriented Labs: CBC, BMP 03/18/19 05:30 03/18/19 05:30 INR, PTT INR 1.49 (0.83-1.09) H 03/16/19 05:30 Assessment/Plan patient with multiple medical problems who is now intubated and sedated all work up has been send ASSESSMENT AND PLAN: Respiratory Failure Pneumonia Severe Sepsis Lactic Acidosis Pulmonary HTN h/o PE h/o of aspergellosis h/o of lobectomy await for sputum cx plan continue zosyn vent mgmt resp support rest as per icu nutrition cc 38min
--- NOTE | 2019-03-18 13:21 | PN ---
Progress Note, Physician History of Present Illness: intubated and sedated - Current Medication List Current Medications: Active Medications Albuterol/Ipratropium (Duoneb -) 1 amp NEB RQID [facility] Last Admin: 03/18/19 11:01 Dose: 1 amp Albuterol/Ipratropium (Duoneb -) 1 amp NEB Q4H PRN PRN Reason: SHORTNESS OF BREATH Last Admin: 03/16/19 03:29 Dose: 1 amp Chlorhexidine Gluconate (Hibiclens For Decolonization -) 1 applic TP HS [facility] Last Admin: 03/17/19 21:53 Dose: 1 applic Digoxin (Lanoxin -) 0.125 mg PO DAILY [facility] Last Admin: 03/18/19 09:39 Dose: 0.125 mg Fentanyl 500 mcg/ Dextrose 100 mls @ 0.2 mls/hr IVPB TITR [facility]; Protocol Last Titration: 03/18/19 09:10 Dose: 0 mcg/hr, 0 mls/hr Piperacillin Sod/Tazobactam (Sod 3.375 gm/ Dextrose) 50 mls @ 100 mls/hr IVPB Q8H-IV [facility]; Protocol Last Admin: 03/18/19 09:39 Dose: 100 mls/hr Dexmedetomidine HCl 200 mcg/ (Sodium Chloride) 50 mls @ 3.47 mls/hr IVPB TITR [facility] Last Infusion: 03/18/19 11:00 Dose: 0.2 mcg/kg/hr, 3.47 mls/hr Sodium Chloride (Normal Saline -) 1,000 mls @ 83 mls/hr IV ASDIR [facility] Last Admin: 03/18/19 08:51 Dose: 83 mls/hr Methylprednisolone Sodium Succinate (Solu-Medrol -) 30 mg IVPUSH BID [facility] Last Admin: 03/18/19 09:39 Dose: 30 mg Montelukast Sodium (Singulair -) 10 mg PO HS [facility] Last Admin: 03/17/19 21:53 Dose: 10 mg Mupirocin (Bactroban Ointment (For Decolonization) -) 1 applic NS BID [facility] Stop: 03/20/19 21:59 Last Admin: 03/18/19 09:41 Dose: 1 applic Pantoprazole Sodium (Protonix -) 40 mg PO DAILY [facility] Last Admin: 03/18/19 09:39 Dose: 40 mg Rivaroxaban (Xarelto) 20 mg PO DAILY@0800 [facility] Last Admin: 03/18/19 08:52 Dose: 20 mg - Objective Vital Signs: Vital Signs Temperature 97.3 F L 03/18/19 10:00 Pulse Rate 111 H 03/18/19 12:00 Respiratory Rate 11 03/18/19 12:00 Blood Pressure 81/70 L 03/18/19 12:00 O2 Sat by Pulse Oximetry (%) 97 03/18/19 10:45 Constitutional: Yes: No Distress HENT: Yes: Atraumatic Neck: Yes: Supple Cardiovascular: Yes: Regular Rate and Rhythm Respiratory: Yes: CTA Bilaterally Gastrointestinal: Yes: Normal Bowel Sounds Extremities: Yes: WNL Edema: No Labs: CBC, BMP 03/18/19 05:30 03/18/19 05:30 INR, PTT INR 1.49 (0.83-1.09) H 03/16/19 05:30 Problem List - Problems (1) Cor pulmonale Assessment/Plan: on iv diuretics Code(s): I27.81 - COR PULMONALE (CHRONIC) (2) Hypoxia Assessment/Plan: intubated and sedated Code(s): R09.02 - HYPOXEMIA (3) Pulmonary arterial hypertension Code(s): I27.21 - SECONDARY PULMONARY ARTERIAL HYPERTENSION (4) Respiratory distress Assessment/Plan: intubated Code(s): R06.03 - ACUTE RESPIRATORY DISTRESS (5) Lung infiltrate Assessment/Plan: on iv abx Code(s): R91.8 - OTHER NONSPECIFIC ABNORMAL FINDING OF LUNG FIELD
[2019-03-18] MEDS ORDERED: DEXTROSE 5%-WATER - 100 ML IVPB ONE (17:10)
[2019-03-18] MEDS ORDERED: MIDAZOLAM HCL 2 MG/2 ML SINGLE DOSE VIAL IVPUSH ONE (17:46)
[2019-03-18] MEDS: CHLORHEXIDINE GLUCONATE 4% CLEANSER FOR DECOLONIZATION TP SCH (21:41)
[2019-03-18] MEDS: MONTELUKAST NA 10 MG TABLET PO SCH (21:41)
[2019-03-18] MEDS: FENTANYL INJECTION 500 MCG in DEXTROSE 5%-WATER - 90 ML IVPB SCH (23:03)
[2019-03-19] MEDS: DEXMEDETOMIDINE HCL 200 MCG in SODIUM CHLORIDE 48 ML IVPB SCH ×2 (01:02→21:45)
[2019-03-19] MEDS: PIPERACILLIN/TAZOB 3.375 GM 3.375 GM in DEXTROSE 5%-WATER - 50 ML IVPB SCH ×3 (01:07→17:53)
[2019-03-19] MEDS ORDERED: DEXTROSE 5%-WATER - 50 ML IVPB ONE ×3 (01:13→17:50)
[2019-03-19] MEDS ORDERED: PIPERACILLIN/TAZOBACTAM 3.375 GM VIAL IVPB ONE ×3 (01:13→17:49)
[2019-03-19 06:44] LABS: ARTERIAL BLD GAS O2 SATURATION 96.7 % (95-98); ARTERIAL BLOOD GAS BASE EXCESS -2.5 meq/l (-2-2); ARTERIAL BLOOD GAS PCO2 30.8 mmHg (35-45); ARTERIAL BLOOD GAS PO2 89.4 mmHg (80-105); ARTERIAL BLOOD GAS pH 7.44 (7.35-7.45)
[2019-03-19 06:46] LABS: ALLENS TEST POSITIVE
[2019-03-19 06:51] LABS: HEMOGLOBIN 10.9 GM/dL (11.7-16.9); MCH 29.2 pg (25.7-33.7); MCHC 32.9 g/dl (32.0-35.9); MEAN CELL VOLUME 88.6 fl (80-96); MEAN PLT VOLUME 7.8 fl (7.5-11.1); PLATELET COUNT 136 K/MM3 (134-434); RBC 3.73 M/mm3 (4.00-5.60); RDW 16.4 % (11.9-15.9); WHITE BLOOD COUNT 9.8 K/mm3 (4.0-10.0)
[2019-03-19] MEDS: ALBUTEROL SO4 2.5/IPRATROPIUM 0.5 INH SOL 3 ML VIAL.NEB. NEB SCH ×4 (07:00→20:47)
[2019-03-19] MEDS: SODIUM CHLORIDE 1,000 ML IV SCH (07:02)
[2019-03-19 07:30] LABS: ANION GAP 5 MMOL/L (8-16); BLOOD UREA NITROGEN 20 mg/dL (7-18); CALCIUM 7.8 mg/dL (8.5-10.1); CHLORIDE 114 mmol/L (98-107); CO2 24 mmol/L (21-32); CREATININE 0.7 mg/dL (0.55-1.3); GLUCOSE,RANDOM 147 mg/dL (74-106); MAGNESIUM 2.4 mg/dL (1.8-2.4); PHOSPHOROUS 2.2 mg/dL (2.5-4.9); POTASSIUM 4.2 mmol/L (3.5-5.1); SODIUM 143 mmol/L (136-145)
[2019-03-19 07:42] LABS: INR 2.2 (0.83-1.09); PROTHROMBIN TIME (PATIENT) 26.2 SEC (9.7-13.0)
[2019-03-19 07:44] LABS: ACTIVATED PTT 32.3 SECONDS (25.2-36.5)
[2019-03-19] MEDS ORDERED: PT OWN MED DRAWER 7, Y5N ONE (08:43)
[2019-03-19] MEDS: RIVAROXABAN 20 MG TABLET PO SCH (08:46)
--- NOTE | 2019-03-19 08:50 | PN ---
Progress Note (short form) - Note Progress Note: Seen and examined in the ICU -failed SBT yesterday and this AM 2/2 RR >30 -cont on precedex drip for agitation -afebrile Current Medications Albuterol/Ipratropium (Duoneb -) 1 amp NEB RQID [facility] Last Admin: 03/19/19 07:00 Dose: 1 amp Albuterol/Ipratropium (Duoneb -) 1 amp NEB Q4H PRN PRN Reason: SHORTNESS OF BREATH Last Admin: 03/16/19 03:29 Dose: 1 amp Chlorhexidine Gluconate (Hibiclens For Decolonization -) 1 applic TP HS [facility] Last Admin: 03/18/19 21:41 Dose: 1 applic Digoxin (Lanoxin -) 0.125 mg PO DAILY [facility] Last Admin: 03/18/19 09:39 Dose: 0.125 mg Fentanyl 500 mcg/ Dextrose 100 mls @ 0.2 mls/hr IVPB TITR [facility]; Protocol Last Admin: 03/18/19 23:03 Dose: Not Given Piperacillin Sod/Tazobactam (Sod 3.375 gm/ Dextrose) 50 mls @ 100 mls/hr IVPB Q8H-IV [facility]; Protocol Last Admin: 03/19/19 01:07 Dose: 100 mls/hr Dexmedetomidine HCl 200 mcg/ (Sodium Chloride) 50 mls @ 3.47 mls/hr IVPB TITR [facility] Last Infusion: 03/19/19 07:00 Dose: 0.3 mcg/kg/hr, 5.2 mls/hr Sodium Chloride (Normal Saline -) 1,000 mls @ 83 mls/hr IV ASDIR [facility] Last Admin: 03/19/19 07:02 Dose: 83 mls/hr Methylprednisolone Sodium Succinate (Solu-Medrol -) 30 mg IVPUSH BID [facility] Last Admin: 03/18/19 21:42 Dose: 30 mg Montelukast Sodium (Singulair -) 10 mg PO HS [facility] Last Admin: 03/18/19 21:41 Dose: 10 mg Mupirocin (Bactroban Ointment (For Decolonization) -) 1 applic NS BID [facility] Stop: 03/20/19 21:59 Last Admin: 03/18/19 21:40 Dose: 1 applic Pantoprazole Sodium (Protonix -) 40 mg PO DAILY [facility] Last Admin: 03/18/19 09:39 Dose: 40 mg Rivaroxaban (Xarelto) 20 mg PO DAILY@0800 [facility] Last Admin: 03/19/19 08:46 Dose: 20 mg Vital Signs Period Temp Pulse Resp BP Sys/Wright Pulse Ox Last 24 Hr 97.3 F-97.8 F 85-140 11-36 81-155/66-103 93-99 Intake & Output 03/16/19 03/17/19 03/18/19 03/19/19 23:59 23:59 23:59 23:59 Intake Total 2840 1140 2205 1065 Output Total 1800 550 500 Balance 1040 1140 1655 565 Weight 69.672 kg 69.4 kg Exam: General: intubated and sedated on precedex HEENT: R>L. no JVD Pulm: crackles in bases w/ decreased RUL CV: tachy, no m/r/g Abd: +BS, SNTND Ext: WWP, no edema Neuro: awake, following simple commands, BARON CBC, BMP 03/19/19 05:30 03/19/19 05:30 CXR: ETT in good position. unchanged from previous study ASSESSMENT AND PLAN: Acute on Chronic Hypoxic and Hypercapneic Respiratory Failure Pneumonia Severe Sepsis Lactic Acidosis LV Systolic Dysfunction Pulmonary HTN h/o Chronic Pulmonary Emboli s/p RLL lobectomy h/o Aspergillosis - continue antibiotics: zosyn/vanco - can solu-medrol wean: 30 yesterday - inhaled bronchodilators standing and PRN - taper Fio2 to keep spO2 >90% - continue anticoagulation - daily sedation vacations to assess mental status - spontaneous breathing trials (failed this AM) - enteral feeds - DVT/GI prophylaxis - continue ICU monitoring critical care time spent in reviewing chart, evaluating patient and formulating plan 35 min
[2019-03-19] MEDS: MUPIROCIN 2% TOPICAL OINTMENT FOR DECOLONIZATION NS SCH ×2 (09:47→22:58)
[2019-03-19] MEDS: PANTOPRAZOLE 40 MG TABLET (FP) PO SCH (09:47)
[2019-03-19] MEDS: DIGOXIN 0.125 MG TABLET (FP) PO SCH (09:47)
[2019-03-19] MEDS: methylPREDNISolone NA SUCC 40 MG/1 ML VIAL IVPUSH SCH ×2 (09:48→22:57)
--- NOTE | 2019-03-19 11:40 | PN ---
Progress Note, Physician History of Present Illness: continues to be stable no new issues intubated sedated - Current Medication List Current Medications: Active Medications Albuterol/Ipratropium (Duoneb -) 1 amp NEB RQID [facility] Last Admin: 03/19/19 07:00 Dose: 1 amp Albuterol/Ipratropium (Duoneb -) 1 amp NEB Q4H PRN PRN Reason: SHORTNESS OF BREATH Last Admin: 03/16/19 03:29 Dose: 1 amp Chlorhexidine Gluconate (Hibiclens For Decolonization -) 1 applic TP HS [facility] Last Admin: 03/18/19 21:41 Dose: 1 applic Digoxin (Lanoxin -) 0.125 mg PO DAILY [facility] Last Admin: 03/19/19 09:47 Dose: 0.125 mg Fentanyl 500 mcg/ Dextrose 100 mls @ 0.2 mls/hr IVPB TITR [facility]; Protocol Last Admin: 03/18/19 23:03 Dose: Not Given Piperacillin Sod/Tazobactam (Sod 3.375 gm/ Dextrose) 50 mls @ 100 mls/hr IVPB Q8H-IV [facility]; Protocol Last Admin: 03/19/19 09:50 Dose: 100 mls/hr Dexmedetomidine HCl 200 mcg/ (Sodium Chloride) 50 mls @ 3.47 mls/hr IVPB TITR [facility] Last Infusion: 03/19/19 09:25 Dose: 0.2 mcg/kg/hr, 3.47 mls/hr Sodium Chloride (Normal Saline -) 1,000 mls @ 83 mls/hr IV ASDIR [facility] Last Admin: 03/19/19 07:02 Dose: 83 mls/hr Methylprednisolone Sodium Succinate (Solu-Medrol -) 30 mg IVPUSH BID [facility] Last Admin: 03/19/19 09:48 Dose: 30 mg Montelukast Sodium (Singulair -) 10 mg PO HS [facility] Last Admin: 03/18/19 21:41 Dose: 10 mg Mupirocin (Bactroban Ointment (For Decolonization) -) 1 applic NS BID [facility] Stop: 03/20/19 21:59 Last Admin: 03/19/19 09:47 Dose: 1 applic Pantoprazole Sodium (Protonix -) 40 mg PO DAILY [facility] Last Admin: 03/19/19 09:47 Dose: 40 mg Rivaroxaban (Xarelto) 20 mg PO DAILY@0800 [facility] Last Admin: 03/19/19 08:46 Dose: 20 mg - Objective Vital Signs: Vital Signs Temperature 97.8 F 03/19/19 02:00 Pulse Rate 112 H 03/19/19 09:47 Respiratory Rate 22 H 03/19/19 10:25 Blood Pressure 141/103 H 03/19/19 08:00 O2 Sat by Pulse Oximetry (%) 96 03/19/19 10:58 Constitutional: Yes: No Distress, Calm Cardiovascular: Yes: Regular Rate and Rhythm Respiratory: Yes: Intubated, Mechanically Ventilated Gastrointestinal: Yes: Normal Bowel Sounds, Soft Musculoskeletal: Yes: WNL Extremities: Yes: WNL Neurological: Yes: Other Labs: CBC, BMP 03/19/19 05:30 03/19/19 05:30 INR, PTT INR 2.20 (0.83-1.09) H 03/19/19 05:30 Assessment/Plan patient with multiple medical problems who is now intubated and sedated all work up has been send ASSESSMENT AND PLAN: Respiratory Failure Pneumonia Severe Sepsis Lactic Acidosis Pulmonary HTN h/o PE h/o of aspergellosis h/o of lobectomy sputum cx noted pseudomonas pneumonia plan continue zosyn resp support rest as per icu nutrition cc 40 min
--- NOTE | 2019-03-19 21:46 | PN ---
Progress Note, Physician - Current Medication List Current Medications: Active Medications Albuterol/Ipratropium (Duoneb -) 1 amp NEB RQID [facility] Last Admin: 03/19/19 20:47 Dose: 1 amp Albuterol/Ipratropium (Duoneb -) 1 amp NEB Q4H PRN PRN Reason: SHORTNESS OF BREATH Last Admin: 03/16/19 03:29 Dose: 1 amp Chlorhexidine Gluconate (Hibiclens For Decolonization -) [address] applic [address] [facility] Last Admin: 03/18/19 21:41 Dose: 1 applic Digoxin (Lanoxin -) 0.125 mg PO DAILY [facility] Last Admin: 03/19/19 09:47 Dose: 0.125 mg Fentanyl 500 mcg/ Dextrose 100 mls @ 0.2 mls/hr IVPB TITR [facility]; Protocol Last Admin: 03/18/19 23:03 Dose: Not Given Piperacillin Sod/Tazobactam (Sod 3.375 gm/ Dextrose) 50 mls @ 100 mls/hr IVPB Q8H-IV [facility]; Protocol Last Admin: 03/19/19 17:53 Dose: 100 mls/hr Dexmedetomidine HCl 200 mcg/ (Sodium Chloride) 50 mls @ 3.47 mls/hr IVPB TITR [facility] Last Infusion: 03/19/19 11:00 Dose: 0.4 mcg/kg/hr, 6.94 mls/hr Sodium Chloride (Normal Saline -) 1,000 mls @ 83 mls/hr IV ASDIR [facility] Last Admin: 03/19/19 07:02 Dose: 83 mls/hr Methylprednisolone Sodium Succinate (Solu-Medrol -) 30 mg IVPUSH BID [facility] Last Admin: 03/19/19 09:48 Dose: 30 mg Montelukast Sodium (Singulair -) 10 mg PO HS [facility] Last Admin: 03/18/19 21:41 Dose: 10 mg Mupirocin (Bactroban Ointment (For Decolonization) -) 1 applic NS BID [facility] Stop: 03/20/19 21:59 Last Admin: 03/19/19 09:47 Dose: 1 applic Pantoprazole Sodium (Protonix -) 40 mg PO DAILY [facility] Last Admin: 03/19/19 09:47 Dose: 40 mg Rivaroxaban (Xarelto) 20 mg PO DAILY@0800 [facility] Last Admin: 03/19/19 08:46 Dose: 20 mg - Objective Vital Signs: Vital Signs Temperature 97.8 F 03/19/19 20:00 Pulse Rate 104 H 03/19/19 20:00 Respiratory Rate 26 H 03/19/19 20:00 Blood Pressure 111/89 03/19/19 20:00 O2 Sat by Pulse Oximetry (%) 98 03/19/19 18:11 Labs: CBC, BMP 03/19/19 05:30 03/19/19 05:30 INR, PTT INR 2.20 (0.83-1.09) H 03/19/19 05:30
[2019-03-19] MEDS: MONTELUKAST NA 10 MG TABLET PO SCH (22:57)
[2019-03-19] MEDS: CHLORHEXIDINE GLUCONATE 4% CLEANSER FOR DECOLONIZATION TP SCH (22:57)
[2019-03-19] MEDS: FENTANYL INJECTION 500 MCG in DEXTROSE 5%-WATER - 90 ML IVPB SCH (22:58)
[2019-03-19] MEDS ORDERED: fentaNYL CITRATE 250 MCG/5 ML VIAL ONE (23:03)
[2019-03-20] MEDS: PIPERACILLIN/TAZOB 3.375 GM 3.375 GM in DEXTROSE 5%-WATER - 50 ML IVPB SCH ×3 (02:00→17:27)
[2019-03-20] MEDS ORDERED: PIPERACILLIN/TAZOBACTAM 3.375 GM VIAL IVPB ONE ×3 (02:17→17:10)
[2019-03-20] MEDS ORDERED: DEXTROSE 5%-WATER - 50 ML IVPB ONE ×3 (02:17→17:10)
[2019-03-20 06:46] LABS: HEMATOCRIT 33.9 % (35.4-49); HEMOGLOBIN 10.9 GM/dL (11.7-16.9); MCH 28.7 pg (25.7-33.7); MCHC 32.1 g/dl (32.0-35.9); MEAN CELL VOLUME 89.3 fl (80-96); MEAN PLT VOLUME 7.6 fl (7.5-11.1); PLATELET COUNT 130 K/MM3 (134-434); RBC 3.79 M/mm3 (4.00-5.60); RDW 16.3 % (11.9-15.9); WHITE BLOOD COUNT 13.4 K/mm3 (4.0-10.0)
[2019-03-20 06:56] LABS: ALLENS TEST POSITIVE
[2019-03-20 07:08] LABS: ARTERIAL BLD GAS O2 SATURATION 77.4 % (95-98); ARTERIAL BLOOD GAS BASE EXCESS -1.9 meq/l (-2-2); ARTERIAL BLOOD GAS PCO2 41.2 mmHg (35-45); ARTERIAL BLOOD GAS pH 7.36 (7.35-7.45)
[2019-03-20 07:18] LABS: ANION GAP 9 MMOL/L (8-16); BLOOD UREA NITROGEN 19 mg/dL (7-18); CALCIUM 7.6 mg/dL (8.5-10.1); CHLORIDE 114 mmol/L (98-107); CO2 24 mmol/L (21-32); CREATININE 0.8 mg/dL (0.55-1.3); GLUCOSE,RANDOM 134 mg/dL (74-106); MAGNESIUM 2.4 mg/dL (1.8-2.4); PHOSPHOROUS 2.2 mg/dL (2.5-4.9); POTASSIUM 4.5 mmol/L (3.5-5.1); SODIUM 148 mmol/L (136-145)
[2019-03-20] MEDS: ALBUTEROL SO4 2.5/IPRATROPIUM 0.5 INH SOL 3 ML VIAL.NEB. NEB SCH ×4 (07:30→20:15)
[2019-03-20] MEDS: RIVAROXABAN 20 MG TABLET PO SCH (08:58)
[2019-03-20] MEDS: SODIUM CHLORIDE 1,000 ML IV SCH (08:58)
[2019-03-20] MEDS: PANTOPRAZOLE 40 MG TABLET (FP) PO SCH (09:15)
[2019-03-20] MEDS: methylPREDNISolone NA SUCC 40 MG/1 ML VIAL IVPUSH SCH ×2 (09:15→21:45)
[2019-03-20] MEDS: DIGOXIN 0.125 MG TABLET (FP) PO SCH (09:15)
[2019-03-20] MEDS: MUPIROCIN 2% TOPICAL OINTMENT FOR DECOLONIZATION NS SCH (09:16)
--- NOTE | 2019-03-20 12:58 | PN ---
Teaching Attending Note Name of Resident: Billie Solis ATTENDING PHYSICIAN STATEMENT I saw and evaluated the patient. I reviewed the resident's note and discussed the case with the resident. I agree with the resident's findings and plan as documented. SUBJECTIVE: Patient seen and examined in the ICU. Intubated and awake. No pressors. Flow loops indicate an obstructive pattern with "breath stacking". Intake & Output 03/17/19 03/18/19 03/19/19 03/20/19 23:59 23:59 23:59 23:59 Intake Total 1140 2205 3657.4 741.2 Output Total 550 1550 600 Balance 1140 1655 2107.4 141.2 Weight 153 lb 107 lb 3.2 oz Last Vital Signs Temp Pulse Resp BP Pulse Ox 97.6 F 115 H 31 H 136/96 93 L 03/20/19 10:00 03/20/19 12:00 03/20/19 12:08 03/20/19 12:00 03/20/19 10:25 Active Medications Albuterol/Ipratropium (Duoneb -) 1 amp NEB RQID [facility] Last Admin: 03/20/19 11:25 Dose: 1 amp Albuterol/Ipratropium (Duoneb -) 1 amp NEB Q4H PRN PRN Reason: SHORTNESS OF BREATH Last Admin: 03/16/19 03:29 Dose: 1 amp Chlorhexidine Gluconate (Hibiclens For Decolonization -) 1 applic TP HS [facility] Last Admin: 03/19/19 22:57 Dose: 1 applic Digoxin (Lanoxin -) 0.125 mg PO DAILY [facility] Last Admin: 03/20/19 09:15 Dose: 0.125 mg Fentanyl 500 mcg/ Dextrose 100 mls @ 0.2 mls/hr IVPB TITR [facility]; Protocol Last Titration: 03/20/19 08:20 Dose: 0 mcg/hr, 0 mls/hr Piperacillin Sod/Tazobactam (Sod 3.375 gm/ Dextrose) 50 mls @ 100 mls/hr IVPB Q8H-IV [facility]; Protocol Last Admin: 03/20/19 09:15 Dose: 100 mls/hr Dexmedetomidine HCl 200 mcg/ (Sodium Chloride) 50 mls @ 3.47 mls/hr IVPB TITR [facility] Last Infusion: 03/20/19 08:20 Dose: 0.2 mcg/kg/hr, 3.47 mls/hr Sodium Chloride (Normal Saline -) 1,000 mls @ 83 mls/hr IV ASDIR [facility] Last Admin: 03/20/19 08:58 Dose: 83 mls/hr Methylprednisolone Sodium Succinate (Solu-Medrol -) 30 mg IVPUSH BID [facility] Last Admin: 03/20/19 09:15 Dose: 30 mg Montelukast Sodium (Singulair -) 10 mg PO HS [facility] Last Admin: 03/19/19 22:57 Dose: 10 mg Mupirocin (Bactroban Ointment (For Decolonization) -) 1 applic NS BID [facility] Stop: 03/20/19 21:59 Last Admin: 03/20/19 09:16 Dose: 1 applic Pantoprazole Sodium (Protonix -) 40 mg PO DAILY [facility] Last Admin: 03/20/19 09:15 Dose: 40 mg Rivaroxaban (Xarelto) 20 mg PO DAILY@0800 [facility] Last Admin: 03/20/19 08:58 Dose: 20 mg Exam: General: intubated and awake on precedex HEENT: R>L. no JVD Pulm: Minimal expiratory wheeze, bilateral scattered rhonchi CV: S1S2 Abd: +BS, SNTND Ext: WWP, no edema Neuro: awake, following simple commands, BARON Laboratory Results - last 24 hr 03/20/19 03/20/19 03/20/19 05:30 05:30 06:34 WBC 13.4 H RBC 3.79 L Hgb 10.9 L Hct 33.9 L MCV 89.3 MCH 28.7 MCHC 32.1 RDW 16.3 H Plt Count 130 L MPV 7.6 Anticoagulation Therapy No Result Required. Puncture Site Left radial ABG pH 7.36 ABG pCO2 at Pt Temp 41.2 ABG pO2 at Pt Temp 46.0 L ABG HCO3 22.8 ABG O2 Sat (Measured) 77.4 L ABG O2 Content 9.4 L* ABG Base Excess -1.9 David Test Positive O2 Delivery Device Vent Oxygen Flow Rate 40% Vent Mode A/c Vent Rate 14 Mechanical Rate Yes PEEP 5.0 Pressure Support Vent 400 Sodium 148 H Potassium 4.5 Chloride 114 H Carbon Dioxide 24 Anion Gap 9 BUN 19 H Creatinine 0.8 Creat Clearance w eGFR 96.13 Random Glucose 134 H Calcium 7.6 L Phosphorus 2.2 L Magnesium 2.4 ASSESSMENT AND PLAN: Acute on Chronic Hypoxic and Hypercapneic Respiratory Failure Pneumonia Severe Sepsis Lactic Acidosis LV Systolic Dysfunction Pulmonary HTN h/o Chronic Pulmonary Emboli s/p RLL lobectomy h/o Aspergillosis - continue antibiotics per ID: zosyn/vanco - Medrol - inhaled bronchodilators standing and PRN - taper Fio2 to keep spO2 >90% - continue anticoagulation - daily sedation vacations to assess mental status - spontaneous breathing trials as tolerated - enteral feeds - DVT/GI prophylaxis - continue ICU monitoring Dr Daugherty Critical care time spent in reviewing chart, evaluating patient and formulating plan 35 min
--- NOTE | 2019-03-20 15:03 | PN ---
Progress Note, Physician History of Present Illness: patient intubated still cpap trial failed - Current Medication List Current Medications: Active Medications Albuterol/Ipratropium (Duoneb -) 1 amp NEB RQID [facility] Last Admin: 03/20/19 11:25 Dose: 1 amp Albuterol/Ipratropium (Duoneb -) 1 amp NEB Q4H PRN PRN Reason: SHORTNESS OF BREATH Last Admin: 03/16/19 03:29 Dose: 1 amp Chlorhexidine Gluconate (Hibiclens For Decolonization -) 1 applic TP HS [facility] Last Admin: 03/19/19 22:57 Dose: 1 applic Digoxin (Lanoxin -) 0.125 mg PO DAILY [facility] Last Admin: 03/20/19 09:15 Dose: 0.125 mg Fentanyl 500 mcg/ Dextrose 100 mls @ 0.2 mls/hr IVPB TITR [facility]; Protocol Last Titration: 03/20/19 13:35 Dose: 40 mcg/hr, 8 mls/hr Piperacillin Sod/Tazobactam (Sod 3.375 gm/ Dextrose) 50 mls @ 100 mls/hr IVPB Q8H-IV [facility]; Protocol Last Admin: 03/20/19 09:15 Dose: 100 mls/hr Dexmedetomidine HCl 200 mcg/ (Sodium Chloride) 50 mls @ 3.47 mls/hr IVPB TITR [facility] Last Infusion: 03/20/19 13:35 Dose: 1 mcg/kg/hr, 17.35 mls/hr Sodium Chloride (Normal Saline -) 1,000 mls @ 83 mls/hr IV ASDIR [facility] Last Admin: 03/20/19 08:58 Dose: 83 mls/hr Methylprednisolone Sodium Succinate (Solu-Medrol -) 30 mg IVPUSH BID [facility] Last Admin: 03/20/19 09:15 Dose: 30 mg Montelukast Sodium (Singulair -) 10 mg PO HS [facility] Last Admin: 03/19/19 22:57 Dose: 10 mg Mupirocin (Bactroban Ointment (For Decolonization) -) 1 applic NS BID [facility] Stop: 03/20/19 21:59 Last Admin: 03/20/19 09:16 Dose: 1 applic Pantoprazole Sodium (Protonix -) 40 mg PO DAILY [facility] Last Admin: 03/20/19 09:15 Dose: 40 mg Rivaroxaban (Xarelto) 20 mg PO DAILY@0800 [facility] Last Admin: 03/20/19 08:58 Dose: 20 mg - Objective Vital Signs: Vital Signs Temperature 97.8 F 03/20/19 14:00 Pulse Rate 119 H 03/20/19 14:00 Respiratory Rate 29 H 03/20/19 14:08 Blood Pressure 125/93 03/20/19 14:00 O2 Sat by Pulse Oximetry (%) 93 L 03/20/19 10:25 Constitutional: Yes: Calm, Mild Distress Cardiovascular: Yes: S1, S2 Respiratory: Yes: Intubated, Mechanically Ventilated Gastrointestinal: Yes: Normal Bowel Sounds, Soft Musculoskeletal: Yes: WNL Extremities: Yes: WNL Neurological: Yes: Alert Psychiatric: Yes: Other Labs: CBC, BMP 03/20/19 05:30 03/20/19 05:30 INR, PTT INR 2.20 (0.83-1.09) H 03/19/19 05:30 - ....Imaging Chest X-ray: Report Reviewed, Image Reviewed Assessment/Plan patient with multiple medical problems who is now intubated and sedated all work up has been send ASSESSMENT AND PLAN: Respiratory Failure Pneumonia Severe Sepsis Lactic Acidosis Pulmonary HTN h/o PE h/o of aspergellosis h/o of lobectomy await for sputum cx plan continue zosyn vent mgmt resp support rest as per icu nutrition weaning trials as tolerated cc 38min
--- NOTE | 2019-03-20 16:36 | PN ---
Physical Exam: SUBJECTIVE: Patient seen and examined at bedside this morning. No acute events overnight. CPAP trial done today, but failed. Patient became tachycardic during the day, sedation increased. No pressors. OBJECTIVE: Vital Signs Temperature 97.8 F 03/20/19 14:00 Pulse Rate 108 H 03/20/19 16:00 Respiratory Rate 03/20/19 16:12 Blood Pressure 132/94 03/20/19 16:00 O2 Sat by Pulse Oximetry (%) 93 L 03/20/19 10:25 GENERAL: Intubated, sedated HEAD: Normal with no signs of trauma. EYES: PERRLA, EOMI, sclera anicteric, conjunctiva clear. ENT: oropharynx clear without exudates, moist mucous membranes. LUNGS: Decreased breath sounds on the Right, scattered rhonchi HEART: Tachycardic, S1, S2 without murmur, rub or gallop. ABDOMEN: Soft, nontender, nondistended, normoactive bowel sounds. EXTREMITIES: 2+ pulses, warm, well-perfused, no edema. SKIN: Warm, dry, normal turgor, no rashes or lesions noted Laboratory Results - last 24 hr 03/20/19 03/20/19 03/20/19 05:30 05:30 06:34 WBC 13.4 H RBC 3.79 L Hgb 10.9 L Hct 33.9 L MCV 89.3 MCH 28.7 MCHC 32.1 RDW 16.3 H Plt Count 130 L MPV 7.6 Anticoagulation Therapy No Result Required. Puncture Site Left radial ABG pH 7.36 ABG pCO2 at Pt Temp 41.2 ABG pO2 at Pt Temp 46.0 L ABG HCO3 22.8 ABG O2 Sat (Measured) 77.4 L ABG O2 Content 9.4 L* ABG Base Excess -1.9 David Test Positive O2 Delivery Device Vent Oxygen Flow Rate 40% Vent Mode A/c Vent Rate 14 Mechanical Rate Yes PEEP 5.0 Pressure Support Vent 400 Sodium 148 H Potassium 4.5 Chloride 114 H Carbon Dioxide 24 Anion Gap 9 BUN 19 H Creatinine 0.8 Creat Clearance w eGFR 96.13 Random Glucose 134 H Calcium 7.6 L Phosphorus 2.2 L Magnesium 2.4 Active Medications Generic Name Dose Route Start Last Admin Trade Name Freq PRN Reason Stop Dose Admin Albuterol/Ipratropium 1 amp 03/15/19 20:00 03/20/19 16:13 Duoneb - NEB 1 amp RQID [facility] Administration Albuterol/Ipratropium 1 amp 03/15/19 19:53 03/16/19 03:29 Duoneb - NEB 1 amp Q4H PRN Administration SHORTNESS OF BREATH Chlorhexidine Gluconate 1 applic 03/15/19 22:00 03/19/19 22:57 Hibiclens For Decolonization - TP 1 applic HS [facility] Administration Digoxin 0.125 mg 03/16/19 10:00 03/20/19 09:15 Lanoxin - PO 0.125 mg DAILY [facility] Administration Fentanyl 500 mcg/ Dextrose 100 mls @ 0.2 mls/hr 03/15/19 22:00 03/20/19 13:35 IVPB 40 mcg/hr TITR [facility] 8 mls/hr Titration Protocol 1 MCG/HR Piperacillin Sod/Tazobactam 50 mls @ 100 mls/hr 03/16/19 18:00 03/20/19 09:15 Sod 3.375 gm/ Dextrose IVPB 100 mls/hr Q8H-IV [facility] Administration Protocol Dexmedetomidine HCl 200 mcg/ 50 mls @ 3.47 mls/hr 03/17/19 21:30 03/20/19 13: 35 Sodium Chloride IVPB 1 mcg/kg/hr TITR [facility] 17.35 mls/hr Infusion 0.2 MCG/KG/HR Sodium Chloride 1,000 mls @ 83 mls/hr 03/18/19 07:15 03/20/19 08:58 Normal Saline - IV 83 mls/hr ASDIR [facility] Administration Methylprednisolone Sodium Succinate 30 mg 03/18/19 09:20 03/20/19 09:15 Solu-Medrol - IVPUSH 30 mg BID [facility] Administration Montelukast Sodium 10 mg 03/16/19 22:00 03/19/19 22:57 Singulair - PO 10 mg HS [facility] Administration Mupirocin 1 applic 03/15/19 22:00 03/20/19 09:16 Bactroban Ointment (For Decolonization) - NS 03/20/19 21:59 1 applic BID [facility] Administration Pantoprazole Sodium 40 mg 03/16/19 10:00 03/20/19 09:15 Protonix - PO 40 mg DAILY [facility] Administration Rivaroxaban 20 mg 03/16/19 08:00 03/20/19 08:58 Xarelto PO 20 mg DAILY@0800 [facility] Administration ASSESSMENT/PLAN: Patient is a 68 yo M h/o PAH s/p R heart cath, on home oxygen 2.5 LPM, multiple PE (most recent one 3 years ago) s/p clot retrieval currently on Xarelto, prostate CA, h/o pulmonary Aspergillus s/p RLL lobectomy in 2006 and reactive airway disease. Admitted to the ICU for acute on chronic hypercapnic respiratory failure. #Neuro -Alert and oriented, but became tachycardic off sedation -Precedex for sedation #Cardiovascular: 1. LV systolic dysfunction 2. Pulmonary HTN -Cardiology (Dr. Altamirano) consulted. -Tachycardic with MAPs maintained above 65. -Continue Digoxin per home dose. -ECHO revealed severe LV dysfunction. Will closely monitor fluid status. Noted only mild pulmonary hypertension. #Pulmo 1. Acute on Chronic Hypoxic and Hypercapneic Respiratory Failure -Intubated and sedated -Outpatient pneumonia diagnosis s/p Augmentin course. Infiltrates noted on CXR. -Continue antibiotics -Duonebs RQID, Methylprednisolone IV 30mg BID, and Singulair. -daily sedation vacations to assess mental status -spontaneous breathing trials as tolerated 2. Hx of PE. -Continue Xeralto 20mg daily -No evidence of massive PE on CTA. 3. Hx of RIGHT lower lobe lobectomy insetting of Aspergillosis infection. #Gastrointestinal: -Continue home Pantoprazole. #Genitourinary: -Ovalle in place for strict I/Os. #ID 1. Severe sepsis likely 2/2 PNA -ID (Dr. Cody) consulted. Recommendations appreciated. -Continue Zosyn 3.375gm q8h -sputum culture - Pseudomonas, Staph latex coag positive, yeast like organism -Blood cultures negative #FEN: -IV NS @83cc/hr -Routine bmp monitoring -Enteral tube feeds #Prophylaxis: -DVT: Xarelto 20mg daily -GI: Pantoprazole 40mg daily #Dispo: -ICU monitoring Visit type - Emergency Visit Emergency Visit: Yes ED Registration Date: 03/15/19 Care time: The patient presented to the Emergency Department on the above date and was hospitalized for further evaluation of their emergent condition. - New Patient This patient is new to me today: Yes Date on this admission: 03/20/19 - Critical Care Critical Care patient: Yes Total Critical Care Time (in minutes): 35 Critical Care Statement: The care of this patient involved high complexity decision making to prevent further life threatening deterioration of the patient 's condition and/or to evaluate & treat vital organ system(s) failure or risk of failure.
--- NOTE | 2019-03-20 17:50 | PN ---
Progress Note, Physician History of Present Illness: intubated and sedated - Current Medication List Current Medications: Active Medications Albuterol/Ipratropium (Duoneb -) 1 amp NEB RQID [facility] Last Admin: 03/20/19 16:13 Dose: 1 amp Albuterol/Ipratropium (Duoneb -) 1 amp NEB Q4H PRN PRN Reason: SHORTNESS OF BREATH Last Admin: 03/16/19 03:29 Dose: 1 amp Chlorhexidine Gluconate (Hibiclens For Decolonization -) 1 applic TP HS [facility] Last Admin: 03/19/19 22:57 Dose: 1 applic Digoxin (Lanoxin -) 0.125 mg PO DAILY [facility] Last Admin: 03/20/19 09:15 Dose: 0.125 mg Fentanyl 500 mcg/ Dextrose 100 mls @ 0.2 mls/hr IVPB TITR [facility]; Protocol Last Titration: 03/20/19 13:35 Dose: 40 mcg/hr, 8 mls/hr Piperacillin Sod/Tazobactam (Sod 3.375 gm/ Dextrose) 50 mls @ 100 mls/hr IVPB Q8H-IV [facility]; Protocol Last Admin: 03/20/19 17:27 Dose: 100 mls/hr Dexmedetomidine HCl 200 mcg/ (Sodium Chloride) 50 mls @ 3.47 mls/hr IVPB TITR [facility] Last Infusion: 03/20/19 13:35 Dose: 1 mcg/kg/hr, 17.35 mls/hr Sodium Chloride (Normal Saline -) 1,000 mls @ 83 mls/hr IV ASDIR [facility] Last Admin: 03/20/19 08:58 Dose: 83 mls/hr Methylprednisolone Sodium Succinate (Solu-Medrol -) 30 mg IVPUSH BID [facility] Last Admin: 03/20/19 09:15 Dose: 30 mg Montelukast Sodium (Singulair -) 10 mg PO HS [facility] Last Admin: 03/19/19 22:57 Dose: 10 mg Mupirocin (Bactroban Ointment (For Decolonization) -) 1 applic NS BID [facility] Stop: 03/20/19 21:59 Last Admin: 03/20/19 09:16 Dose: 1 applic Pantoprazole Sodium (Protonix -) 40 mg PO DAILY [facility] Last Admin: 03/20/19 09:15 Dose: 40 mg Rivaroxaban (Xarelto) 20 mg PO DAILY@0800 [facility] Last Admin: 03/20/19 08:58 Dose: 20 mg - Objective Vital Signs: Vital Signs Temperature 97.8 F 03/20/19 14:00 Pulse Rate 108 H 03/20/19 16:00 Respiratory Rate 03/20/19 16:12 Blood Pressure 132/94 03/20/19 16:00 O2 Sat by Pulse Oximetry (%) 98 03/20/19 17:19 Constitutional: Yes: No Distress HENT: Yes: Atraumatic Neck: Yes: Supple Cardiovascular: Yes: Regular Rate and Rhythm Respiratory: Yes: CTA Bilaterally Gastrointestinal: Yes: Normal Bowel Sounds Extremities: Yes: WNL Edema: No Peripheral Pulses WNL: Yes Neurological: Yes: Other (intubated and sedated) Labs: CBC, BMP 03/20/19 05:30 03/20/19 05:30 INR, PTT INR 2.20 (0.83-1.09) H 03/19/19 05:30 Problem List - Problems (1) Cor pulmonale Code(s): I27.81 - COR PULMONALE (CHRONIC) (2) Hypoxia Code(s): R09.02 - HYPOXEMIA (3) Pulmonary arterial hypertension Code(s): I27.21 - SECONDARY PULMONARY ARTERIAL HYPERTENSION (4) Respiratory distress Code(s): R06.03 - ACUTE RESPIRATORY DISTRESS (5) Lung infiltrate Code(s): R91.8 - OTHER NONSPECIFIC ABNORMAL FINDING OF LUNG FIELD Assessment/Plan ASSESSMENT AND PLAN: Respiratory Failure Pneumonia Severe Sepsis Lactic Acidosis Pulmonary HTN h/o PE h/o of aspergellosis h/o of lobectomy plan will continue iv empiric abx iv steroids sputum cx nutrition pt is intubated dvt ppx cc time 40 min
[2019-03-20] MEDS: FENTANYL INJECTION 500 MCG in DEXTROSE 5%-WATER - 90 ML IVPB SCH (21:17)
[2019-03-20] MEDS: MONTELUKAST NA 10 MG TABLET PO SCH (21:45)
[2019-03-20] MEDS: CHLORHEXIDINE GLUCONATE 4% CLEANSER FOR DECOLONIZATION TP SCH (21:47)
[2019-03-21] MEDS: DEXMEDETOMIDINE HCL 200 MCG in SODIUM CHLORIDE 48 ML IVPB SCH (00:31)
[2019-03-21] MEDS ORDERED: DEXTROSE 5%-WATER - 50 ML IVPB ONE ×3 (00:45→17:36)
[2019-03-21] MEDS ORDERED: PIPERACILLIN/TAZOBACTAM 3.375 GM VIAL IVPB ONE ×3 (00:45→17:36)
[2019-03-21] MEDS: PIPERACILLIN/TAZOB 3.375 GM 3.375 GM in DEXTROSE 5%-WATER - 50 ML IVPB SCH ×3 (01:04→17:42)
[2019-03-21 06:33] LABS: ARTERIAL BLD GAS O2 SATURATION 99.2 % (95-98); ARTERIAL BLOOD GAS BASE EXCESS 0.1 meq/l (-2-2); ARTERIAL BLOOD GAS PCO2 43.4 mmHg (35-45); ARTERIAL BLOOD GAS PO2 152 mmHg (80-105); ARTERIAL BLOOD GAS pH 7.38 (7.35-7.45)
[2019-03-21 06:51] LABS: BASO % 0.4 % (0-2.0); HEMATOCRIT 34.8 % (35.4-49); HEMOGLOBIN 11.2 GM/dL (11.7-16.9); LYMPH % 1.2 % (8-40); MCHC 32.3 g/dl (32.0-35.9); MEAN CELL VOLUME 89.6 fl (80-96); MEAN PLT VOLUME 7.9 fl (7.5-11.1); MONO % 2.3 % (3.8-10.2); NEUT % 96.1 % (42.8-82.8); PLATELET COUNT 144 K/MM3 (134-434); RBC 3.88 M/mm3 (4.00-5.60); RDW 16.6 % (11.9-15.9); WHITE BLOOD COUNT 14.2 K/mm3 (4.0-10.0)
[2019-03-21 06:56] LABS: ALLENS TEST POSITIVE
[2019-03-21 07:34] LABS: ALBUMIN 1.7 g/dl (3.4-5.0); ALK PHOS 161 U/L (45-117); ANION GAP 5 MMOL/L (8-16); BILIRUBIN,TOTAL 0.4 mg/dL (0.2-1); BLOOD UREA NITROGEN 17 mg/dL (7-18); CALCIUM 7.5 mg/dL (8.5-10.1); CHLORIDE 113 mmol/L (98-107); CO2 27 mmol/L (21-32); CREATININE 0.7 mg/dL (0.55-1.3); GLUCOSE,RANDOM 133 mg/dL (74-106); MAGNESIUM 2.3 mg/dL (1.8-2.4); PHOSPHOROUS 2.7 mg/dL (2.5-4.9); POTASSIUM 4.7 mmol/L (3.5-5.1); SGOT/AST 36 U/L (15-37); SGPT/ALT 117 U/L (13-61); SODIUM 145 mmol/L (136-145); TOT PROT 5.7 g/dl (6.4-8.2)
[2019-03-21] MEDS: ALBUTEROL SO4 2.5/IPRATROPIUM 0.5 INH SOL 3 ML VIAL.NEB. NEB SCH ×4 (08:07→19:50)
[2019-03-21] MEDS: RIVAROXABAN 20 MG TABLET PO SCH (10:12)
[2019-03-21] MEDS: DIGOXIN 0.125 MG TABLET (FP) PO SCH (10:12)
[2019-03-21] MEDS: PANTOPRAZOLE 40 MG TABLET (FP) PO SCH (10:13)
[2019-03-21] MEDS: methylPREDNISolone NA SUCC 40 MG/1 ML VIAL IVPUSH SCH ×2 (10:14→21:57)
[2019-03-21 12:03] LABS: ANISOCYTOSIS 1+; MACROCYTOSIS 0; PLATELET ESTIMATE DECREASED
--- NOTE | 2019-03-21 12:06 | PN ---
Teaching Attending Note Name of Resident: Billie Solis ATTENDING PHYSICIAN STATEMENT I saw and evaluated the patient. I reviewed the resident's note and discussed the case with the resident. I agree with the resident's findings and plan as documented. SUBJECTIVE: Patient seen and examined in the ICU. Intubated and awake on CPAP Mode of vent. No pressors. Flow loops indicate less obstructive pattern without "breath stacking". Intake & Output 03/18/19 03/19/19 03/20/19 03/21/19 23:59 23:59 23:59 23:59 Intake Total 2205 3657.4 3065.2 601 Output Total 550 1550 2100 325 Balance 1655 2107.4 965.2 276 Weight 107 lb 3.2 oz 115 lb 3.2 oz Last Vital Signs Temp Pulse Resp BP Pulse Ox 97.5 F L 120 H 24 H 130/98 100 03/21/19 10:00 03/21/19 10:12 03/21/19 10:19 03/21/19 10:00 03/20/19 21:00 Active Medications Albuterol/Ipratropium (Duoneb -) 1 amp NEB RQID [facility] Last Admin: 03/21/19 11:56 Dose: 1 amp Albuterol/Ipratropium (Duoneb -) 1 amp NEB Q4H PRN PRN Reason: SHORTNESS OF BREATH Last Admin: 03/16/19 03:29 Dose: 1 amp Chlorhexidine Gluconate (Hibiclens For Decolonization -) 1 applic TP HS [facility] Last Admin: 03/20/19 21:47 Dose: 1 applic Digoxin (Lanoxin -) 0.125 mg PO DAILY [facility] Last Admin: 03/21/19 10:12 Dose: 0.125 mg Diltiazem HCl (Cardizem -) 30 mg PO TID [facility] Fentanyl 500 mcg/ Dextrose 100 mls @ 0.2 mls/hr IVPB TITR [facility]; Protocol Last Admin: 03/20/19 21:17 Dose: 40 mcg/hr, 8 mls/hr Piperacillin Sod/Tazobactam (Sod 3.375 gm/ Dextrose) 50 mls @ 100 mls/hr IVPB Q8H-IV [facility]; Protocol Last Admin: 03/21/19 10:14 Dose: 100 mls/hr Dexmedetomidine HCl 200 mcg/ (Sodium Chloride) 50 mls @ 3.47 mls/hr IVPB TITR [facility] Last Admin: 03/21/19 00:31 Dose: 0.2 mcg/kg/hr, 3.47 mls/hr Sodium Chloride (Normal Saline -) 1,000 mls @ 83 mls/hr IV ASDIR [facility] Last Admin: 03/20/19 08:58 Dose: 83 mls/hr Methylprednisolone Sodium Succinate (Solu-Medrol -) 30 mg IVPUSH BID [facility] Last Admin: 03/21/19 10:14 Dose: 30 mg Montelukast Sodium (Singulair -) 10 mg PO HS [facility] Last Admin: 03/20/19 21:45 Dose: 10 mg Pantoprazole Sodium (Protonix -) 40 mg PO DAILY [facility] Last Admin: 03/21/19 10:13 Dose: 40 mg Rivaroxaban (Xarelto) 20 mg PO DAILY@0800 [facility] Last Admin: 03/21/19 10:12 Dose: 20 mg Exam: General: intubated and awake on precedex HEENT: R>L. no JVD Pulm: Minimal expiratory wheeze, bilateral scattered rhonchi CV: S1S2, AFib Abd: +BS, SNTND Ext: WWP, no edema Neuro: awake, following commands, BARON Laboratory Results - last 24 hr 03/21/19 03/21/19 03/21/19 05:30 05:30 06:00 WBC 14.2 H RBC 3.88 L Hgb 11.2 L Hct 34.8 L MCV 89.6 MCH 29.0 MCHC 32.3 RDW 16.6 H Plt Count 144 MPV 7.9 Absolute Neuts (auto) 13.6 H Neutrophils % 96.1 H Lymphocytes % 1.2 L Monocytes % 2.3 L Eosinophils % 0.0 Basophils % 0.4 Nucleated RBC % 1 H Anticoagulation Therapy No Result Required. Puncture Site Left radial ABG pH 7.38 ABG pCO2 at Pt Temp 43.4 ABG pO2 at Pt Temp 152 H ABG HCO3 24.9 ABG O2 Sat (Measured) 99.2 H ABG O2 Content 16.3 ABG Base Excess 0.1 David Test Positive O2 Delivery Device Vent Oxygen Flow Rate 40% Vent Mode A/c Vent Rate 14 Mechanical Rate No Result Required. PEEP 5.0 Pressure Support Vent 400 Sodium 145 Potassium 4.7 Chloride 113 H Carbon Dioxide 27 Anion Gap 5 L BUN 17 Creatinine 0.7 Creat Clearance w eGFR 112.15 Random Glucose 133 H Calcium 7.5 L Phosphorus 2.7 Magnesium 2.3 Total Bilirubin 0.4 AST 36 ALT 117 H Alkaline Phosphatase 161 H Total Protein 5.7 L Albumin 1.7 L ASSESSMENT AND PLAN: Acute on Chronic Hypoxic and Hypercapneic Respiratory Failure Pneumonia Severe Sepsis Lactic Acidosis LV Systolic Dysfunction Pulmonary HTN h/o Chronic Pulmonary Emboli s/p RLL lobectomy h/o Aspergillosis AFib with RVR - Wean to extubate - continue antibiotics per ID: zosyn/vanco - Medrol - inhaled bronchodilators standing and PRN - taper Fio2 to keep spO2 >90% - Continue anticoagulation - Enteral feeds - DVT/GI prophylaxis - Continue ICU monitoring Dr Daugherty Critical care time spent in reviewing chart, evaluating patient and formulating plan 35 min
--- NOTE | 2019-03-21 12:17 | PN ---
Progress Note, Physician Chief Complaint: called for atrial fibrillation with RVR. History of Present Illness: The patient is a 68-year-old man, we've a history of essential hypertension, pulmonary hypertension, on home oxygen, multiple pulmonary emboli on Xarelto, prostate cancer, Aspergillus, status post right lower lobectomy, now admitted with shortness of breath and respiratory failure. Extubated, now found to be in atrial fibrillation with RVR as interpreted by the ECG, but he is in sinus tachycardia. Awake and alert. echo 03/16/19 severe global HK, nlrv EF 35 CTA chest 03/16/19 Lingula infiltrate, rt chest fluid filled cavity, poss hemoptx , dil pulm artery - Current Medication List Current Medications: Active Medications Albuterol/Ipratropium (Duoneb -) 1 amp NEB RQID [facility] Last Admin: 03/21/19 11:56 Dose: 1 amp Albuterol/Ipratropium (Duoneb -) 1 amp NEB Q4H PRN PRN Reason: SHORTNESS OF BREATH Last Admin: 03/16/19 03:29 Dose: 1 amp Chlorhexidine Gluconate (Hibiclens For Decolonization -) 1 applic TP HS [facility] Last Admin: 03/20/19 21:47 Dose: 1 applic Digoxin (Lanoxin -) 0.125 mg PO DAILY [facility] Last Admin: 03/21/19 10:12 Dose: 0.125 mg Diltiazem HCl (Cardizem -) 30 mg PO TID [facility] Fentanyl 500 mcg/ Dextrose 100 mls @ 0.2 mls/hr IVPB TITR [facility]; Protocol Last Admin: 03/20/19 21:17 Dose: 40 mcg/hr, 8 mls/hr Piperacillin Sod/Tazobactam (Sod 3.375 gm/ Dextrose) 50 mls @ 100 mls/hr IVPB Q8H-IV [facility]; Protocol Last Admin: 03/21/19 10:14 Dose: 100 mls/hr Dexmedetomidine HCl 200 mcg/ (Sodium Chloride) 50 mls @ 3.47 mls/hr IVPB TITR [facility] Last Admin: 03/21/19 00:31 Dose: 0.2 mcg/kg/hr, 3.47 mls/hr Sodium Chloride (Normal Saline -) 1,000 mls @ 83 mls/hr IV ASDIR [facility] Last Admin: 03/20/19 08:58 Dose: 83 mls/hr Methylprednisolone Sodium Succinate (Solu-Medrol -) 30 mg IVPUSH BID [facility] Last Admin: 03/21/19 10:14 Dose: 30 mg Montelukast Sodium (Singulair -) 10 mg PO HS [facility] Last Admin: 03/20/19 21:45 Dose: 10 mg Pantoprazole Sodium (Protonix -) 40 mg PO DAILY [facility] Last Admin: 03/21/19 10:13 Dose: 40 mg Rivaroxaban (Xarelto) 20 mg PO DAILY@0800 [facility] Last Admin: 03/21/19 10:12 Dose: 20 mg - Objective Vital Signs: Vital Signs Temperature 97.5 F L 03/21/19 10:00 Pulse Rate 120 H 03/21/19 10:12 Respiratory Rate 24 H 03/21/19 10:19 Blood Pressure 130/98 03/21/19 10:00 O2 Sat by Pulse Oximetry (%) 100 03/21/19 09:00 Constitutional: Yes: No Distress, Calm Eyes: Yes: EOM Intact HENT: Yes: Normocephalic Neck: Yes: Trachea Midline Cardiovascular: Yes: Regular Rate and Rhythm, Tachycardia, JVD Respiratory: Yes: Accessory Muscle Use, Diminished Gastrointestinal: Yes: Normal Bowel Sounds, Soft Musculoskeletal: Yes: WNL Extremities: Yes: WNL Edema: No Labs: CBC, BMP 03/21/19 05:30 03/21/19 05:30 INR, PTT INR 2.20 (0.83-1.09) H 03/19/19 05:30 Assessment/Plan The patient is a 68-year-old man, we've a history of essential hypertension, pulmonary hypertension, on home oxygen, multiple pulmonary emboli on Xarelto, prostate cancer, Aspergillus, status post right lower lobectomy and embolectomy , now admitted with shortness of breath and respiratory failure. Extubated, now found to be in atrial fibrillation with RVR. echo 03/16/19 severe global HK, nlrv EF 35 CTA chest 03/16/19 Lingula infiltrate, rt chest fluid filled cavity, poss hemoptx , dil pulm artery Pulmonary HTN -continue digoxin -off all pulm htn medication since lung surgery Atrial fibrillation -continue Xarelto -however, the ECG and telemetry shows a rapid regular rhythm either sinus tachycardia (most likely) or atrial tachycardia. -this is likely due to the stress of his infection, hypoxia and the poor pulmonary status. Call us with questions.
[2019-03-21] MEDS ORDERED: dilTIAZem HCL 30 MG TABLET (FP) PO SCH ×2 (12:30→14:00)
--- NOTE | 2019-03-21 13:00 | EKG ---
Test Reason : Blood Pressure : / mmHG Vent. Rate : 117 BPM Atrial Rate : 119 BPM P-R Int : 000 ms QRS Dur : 114 ms QT Int : 302 ms P-R-T Axes : 000 243 042 degrees QTc Int : 421 ms ATRIAL FIBRILLATION WITH RAPID VENTRICULAR RESPONSE RIGHT SUPERIOR AXIS DEVIATION RIGHT VENTRICULAR HYPERTROPHY NONSPECIFIC ST ABNORMALITY ABNORMAL ECG WHEN COMPARED WITH ECG OF 15-MAR-2019 21:35, ATRIAL FIBRILLATION HAS REPLACED SINUS RHYTHM ST LESS DEPRESSED IN ANTERIOR LEADS T WAVE INVERSION LESS EVIDENT IN ANTEROLATERAL LEADS Confirmed by MD AUDI, ARIE ([id number]) on 03/21/2019 12:59:41 PM Referred By: Tani FERRARA Confirmed By:ARIE HUNTLEY MD
--- NOTE | 2019-03-21 13:38 | PN ---
Physical Exam: SUBJECTIVE: Patient seen and examined at bedside this morning. No acute events overnight. Patient was extubated this morning and placed on venti mask. OBJECTIVE: Vital Signs Temperature 97.5 F L 03/21/19 10:00 Pulse Rate 119 H 03/21/19 12:00 Respiratory Rate 23 H 03/21/19 12:00 Blood Pressure 135/102 H 03/21/19 12:00 O2 Sat by Pulse Oximetry (%) 100 03/21/19 09:00 GENERAL: The patient is awake, alert, and oriented, on venti mask. HEAD: Normal with no signs of trauma. EYES: PERRLA,EOMI, sclera anicteric, conjunctiva clear. ENT: oropharynx clear without exudates, moist mucous membranes. LUNGS: Decreased breath sounds on the Right, scattered rhonchi HEART: Tachycardic, S1, S2 without murmur, rub or gallop. ABDOMEN: Soft, nontender, nondistended, normoactive bowel sounds. EXTREMITIES: 2+ pulses, warm, well-perfused, no edema. SKIN: Warm, dry, normal turgor, no rashes or lesions noted Laboratory Results - last 24 hr 03/21/19 03/21/19 03/21/19 05:30 05:30 06:00 WBC 14.2 H RBC 3.88 L Hgb 11.2 L Hct 34.8 L MCV 89.6 MCH 29.0 MCHC 32.3 RDW 16.6 H Plt Count 144 MPV 7.9 Absolute Neuts (auto) 13.6 H Neutrophils % 96.1 H Neutrophils % (Manual) 96.0 H Band Neutrophils % 0.0 Lymphocytes % 1.2 L Lymphocytes % (Manual) 2.0 L D Monocytes % 2.3 L Monocytes % (Manual) 1 L Eosinophils % 0.0 Eosinophils % (Manual) 0.0 Basophils % 0.4 Basophils % (Manual) 0.0 Myelocytes % (Man) 1 Promyelocytes % (Man) 0 Blast Cells % (Manual) 0 Nucleated RBC % 1 H Metamyelocytes 0 Hypochromia 0 Platelet Estimate Decreased Polychromasia 1+ Poikilocytosis 0 Anisocytosis 1+ Microcytosis 1+ Macrocytosis 0 Anticoagulation Therapy No Result Required. Puncture Site Left radial ABG pH 7.38 ABG pCO2 at Pt Temp 43.4 ABG pO2 at Pt Temp 152 H ABG HCO3 24.9 ABG O2 Sat (Measured) 99.2 H ABG O2 Content 16.3 ABG Base Excess 0.1 David Test Positive O2 Delivery Device Vent Oxygen Flow Rate 40% Vent Mode A/c Vent Rate 14 Mechanical Rate No Result Required. PEEP 5.0 Pressure Support Vent 400 Sodium 145 Potassium 4.7 Chloride 113 H Carbon Dioxide 27 Anion Gap 5 L BUN 17 Creatinine 0.7 Creat Clearance w eGFR 112.15 Random Glucose 133 H Calcium 7.5 L Phosphorus 2.7 Magnesium 2.3 Total Bilirubin 0.4 AST 36 ALT 117 H Alkaline Phosphatase 161 H Total Protein 5.7 L Albumin 1.7 L Active Medications Generic Name Dose Route Start Last Admin Trade Name Freq PRN Reason Stop Dose Admin Albuterol/Ipratropium 1 amp 03/15/19 20:00 03/21/19 11:56 Duoneb - NEB 1 amp RQID [facility] Administration Albuterol/Ipratropium 1 amp 03/15/19 19:53 03/16/19 03:29 Duoneb - NEB 1 amp Q4H PRN Administration SHORTNESS OF BREATH Chlorhexidine Gluconate 1 applic 03/15/19 22:00 03/20/19 21:47 Hibiclens For Decolonization - TP 1 applic HS [facility] Administration Digoxin 0.125 mg 03/16/19 10:00 03/21/19 10:12 Lanoxin - PO 0.125 mg DAILY [facility] Administration Diltiazem HCl 30 mg 03/21/19 12:30 Cardizem - PO Q6HPO [facility] Piperacillin Sod/Tazobactam 50 mls @ 100 mls/hr 03/16/19 18:00 03/21/19 10:14 Sod 3.375 gm/ Dextrose IVPB 100 mls/hr Q8H-IV [facility] Administration Protocol Sodium Chloride 1,000 mls @ 83 mls/hr 03/18/19 07:15 03/20/19 08:58 Normal Saline - IV 83 mls/hr ASDIR [facility] Administration Methylprednisolone Sodium Succinate 30 mg 03/18/19 09:20 03/21/19 10:14 Solu-Medrol - IVPUSH 30 mg BID [facility] Administration Montelukast Sodium 10 mg 03/16/19 22:00 03/20/19 21:45 Singulair - PO 10 mg HS [facility] Administration Pantoprazole Sodium 40 mg 03/16/19 10:00 03/21/19 10:13 Protonix - PO 40 mg DAILY [facility] Administration Rivaroxaban 20 mg 03/16/19 08:00 03/21/19 10:12 Xarelto PO 20 mg DAILY@0800 [facility] Administration ASSESSMENT/PLAN: Patient is a 68 yo M h/o PAH s/p R heart cath, on home oxygen 2.5 LPM, multiple PE (most recent one 3 years ago) s/p clot retrieval currently on Xarelto, prostate CA, h/o pulmonary Aspergillus s/p RLL lobectomy in 2006 and reactive airway disease. Admitted to the ICU for acute on chronic hypercapnic respiratory failure. #Neuro -Alert and oriented, now off sedation #Cardiovascular: 1. LV systolic dysfunction 2. Pulmonary HTN -Cardiology (Dr. Herndon) consulted. Recommendations appreciated. -Tachycardic with MAPs maintained above 65. -Continue Digoxin per home dose. -ECHO revealed severe LV dysfunction. Will closely monitor fluid status. Noted only mild pulmonary hypertension. 3. Sinus tachycardia vs atrial tachycardia -EKG/tele showing rapid regular rhythm -As per cardiology, may be due to infection, hypoxia and poor pulmonary status #Pulmo 1. Acute on Chronic Hypoxic and Hypercapneic Respiratory Failure -Trial of extubation -Outpatient pneumonia diagnosis s/p Augmentin course. Infiltrates noted on CXR. -Continue antibiotics -Duonebs RQID, Methylprednisolone IV 30mg BID, and Singulair. 2. Hx of PE. -Continue Xeralto 20mg daily -No evidence of massive PE on CTA. 3. Hx of RIGHT lower lobe lobectomy insetting of Aspergillosis infection. #Gastrointestinal: -Continue home Pantoprazole. #Genitourinary: -Ovalle in place for strict I/Os. #ID 1. Severe sepsis likely 2/2 PNA -ID (Dr. Cody) consulted. Recommendations appreciated. -Continue Zosyn 3.375gm q8h -sputum culture - Pseudomonas, Staph latex coag positive, yeast like organism -Blood cultures negative #FEN: -Not on any standing fluids -Routine bmp monitoring -Soft diet #Prophylaxis: -DVT: Xarelto 20mg daily -GI: Pantoprazole 40mg daily #Dispo: -ICU monitoring Visit type - Emergency Visit Emergency Visit: Yes ED Registration Date: 03/15/19 Care time: The patient presented to the Emergency Department on the above date and was hospitalized for further evaluation of their emergent condition. - New Patient This patient is new to me today: No - Critical Care Critical Care patient: Yes Total Critical Care Time (in minutes): 37 Critical Care Statement: The care of this patient involved high complexity decision making to prevent further life threatening deterioration of the patient 's condition and/or to evaluate & treat vital organ system(s) failure or risk of failure.
--- NOTE | 2019-03-21 13:38 | PN ---
Progress Note, Physician History of Present Illness: stable extubated says he is feeling well on face mask - Current Medication List Current Medications: Active Medications Albuterol/Ipratropium (Duoneb -) 1 amp NEB RQID [facility] Last Admin: 03/21/19 11:56 Dose: 1 amp Albuterol/Ipratropium (Duoneb -) 1 amp NEB Q4H PRN PRN Reason: SHORTNESS OF BREATH Last Admin: 03/16/19 03:29 Dose: 1 amp Chlorhexidine Gluconate (Hibiclens For Decolonization -) 1 applic TP [facility] Last Admin: 03/20/19 21:47 Dose: 1 applic Digoxin (Lanoxin -) 0.125 mg PO DAILY [facility] Last Admin: 03/21/19 10:12 Dose: 0.125 mg Piperacillin Sod/Tazobactam (Sod 3.375 gm/ Dextrose) 50 mls @ 100 mls/hr IVPB Q8H-IV [facility]; Protocol Last Admin: 03/21/19 10:14 Dose: 100 mls/hr Sodium Chloride (Normal Saline -) 1,000 mls @ 83 mls/hr IV ASDIR [facility] Last Admin: 03/20/19 08:58 Dose: 83 mls/hr Methylprednisolone Sodium Succinate (Solu-Medrol -) 30 mg IVPUSH BID [facility] Last Admin: 03/21/19 10:14 Dose: 30 mg Montelukast Sodium (Singulair -) 10 mg PO HS [facility] Last Admin: 03/20/19 21:45 Dose: 10 mg Pantoprazole Sodium (Protonix -) 40 mg PO DAILY [facility] Last Admin: 03/21/19 10:13 Dose: 40 mg Rivaroxaban (Xarelto) 20 mg PO DAILY@0800 [facility] Last Admin: 03/21/19 10:12 Dose: 20 mg - Objective Vital Signs: Vital Signs Temperature 97.5 F L 03/21/19 10:00 Pulse Rate 119 H 03/21/19 12:00 Respiratory Rate 23 H 03/21/19 12:00 Blood Pressure 135/102 H 03/21/19 12:00 O2 Sat by Pulse Oximetry (%) 100 03/21/19 09:00 Constitutional: Yes: No Distress, Calm Cardiovascular: Yes: S1, S2 Respiratory: Yes: Poor Air Entry, Rhonchi, Other (on face mask) Gastrointestinal: Yes: Normal Bowel Sounds, Soft Musculoskeletal: Yes: WNL Extremities: Yes: WNL Neurological: Yes: Alert, Oriented Psychiatric: Yes: Alert, Oriented Labs: CBC, BMP 03/21/19 05:30 03/21/19 05:30 INR, PTT INR 2.20 (0.83-1.09) H 03/19/19 05:30 Assessment/Plan patient with multiple medical problems who is now intubated and sedated all work up has been send ASSESSMENT AND PLAN: Respiratory Failure Pneumonia Severe Sepsis Lactic Acidosis Pulmonary HTN h/o PE h/o of aspergellosis h/o of lobectomy sputum cx noted pseudomonas pneumonia plan continue zosyn resp support rest as per icu nutrition cc 40 min patients wbc have increased close watch will decide about abx tomorrow will d/w the icu team
--- NOTE | 2019-03-21 17:12 | PN ---
Progress Note (short form) - Note Progress Note: Was called to assess the patient in CT s/p CTA. Per nurse and care tech, patient had been undergoing CTA w/ IV contrast to r/o PE. At the end of the study, CT staff noticed that the IV used to inject contrast dye had infiltrated. CT contrast dye was injected into a 22g IV on LT forearm as opposed to the conventional 20g IV as patient was difficult to access. Area on left forearm at IV site was eythematous and indurated. Patient endorsed pain at the site of infiltration. VSS. Instructed nursing staff to apply warm compresses tot he affected area and monitor for signs of further irritation or infection. CTA study was limited in quality, but was completed successfully.
--- NOTE | 2019-03-21 17:14 | PN ---
Progress Note, Physician - Current Medication List Current Medications: Active Medications Albuterol/Ipratropium (Duoneb -) 1 amp NEB RQID [facility] Last Admin: 03/21/19 16:27 Dose: 1 amp Albuterol/Ipratropium (Duoneb -) 1 amp NEB Q4H PRN PRN Reason: SHORTNESS OF BREATH Last Admin: 03/16/19 03:29 Dose: 1 amp Chlorhexidine Gluconate (Hibiclens For Decolonization -) 1 applic TP HS [facility] Last Admin: 03/20/19 21:47 Dose: 1 applic Digoxin (Lanoxin -) 0.125 mg PO DAILY [facility] Last Admin: 03/21/19 10:12 Dose: 0.125 mg Piperacillin Sod/Tazobactam (Sod 3.375 gm/ Dextrose) 50 mls @ 100 mls/hr IVPB Q8H-IV [facility]; Protocol Last Admin: 03/21/19 10:14 Dose: 100 mls/hr Sodium Chloride (Normal Saline -) 1,000 mls @ 83 mls/hr IV ASDIR [facility] Last Admin: 03/20/19 08:58 Dose: 83 mls/hr Methylprednisolone Sodium Succinate (Solu-Medrol -) 30 mg IVPUSH BID [facility] Last Admin: 03/21/19 10:14 Dose: 30 mg Montelukast Sodium (Singulair -) 10 mg PO HS [facility] Last Admin: 03/20/19 21:45 Dose: 10 mg Pantoprazole Sodium (Protonix -) 40 mg PO DAILY [facility] Last Admin: 03/21/19 10:13 Dose: 40 mg Rivaroxaban (Xarelto) 20 mg PO DAILY@0800 [facility] Last Admin: 03/21/19 10:12 Dose: 20 mg - Objective Vital Signs: Vital Signs Temperature 97.5 F L 03/21/19 14:00 Pulse Rate 119 H 03/21/19 16:26 Respiratory Rate 24 H 03/21/19 14:00 Blood Pressure 125/99 03/21/19 14:00 O2 Sat by Pulse Oximetry (%) 100 03/21/19 16:26 HENT: Yes: Atraumatic Neck: Yes: Supple Cardiovascular: Yes: Regular Rate and Rhythm Respiratory: Yes: CTA Bilaterally Gastrointestinal: Yes: Normal Bowel Sounds Extremities: Yes: WNL Edema: No Peripheral Pulses WNL: Yes Neurological: Yes: Alert, Oriented Labs: CBC, BMP 03/21/19 05:30 03/21/19 05:30 INR, PTT INR 2.20 (0.83-1.09) H 03/19/19 05:30 Problem List - Problems (1) Cor pulmonale Assessment/Plan: on iv diuretics Code(s): I27.81 - COR PULMONALE (CHRONIC) (2) Hypoxia Assessment/Plan: extubated Code(s): R09.02 - HYPOXEMIA (3) Pulmonary arterial hypertension Code(s): I27.21 - SECONDARY PULMONARY ARTERIAL HYPERTENSION (4) Respiratory distress Assessment/Plan: intubated Code(s): R06.03 - ACUTE RESPIRATORY DISTRESS
[2019-03-21] MEDS: SODIUM CHLORIDE 1,000 ML IV SCH (17:21)
[2019-03-21] MEDS: CHLORHEXIDINE GLUCONATE 4% CLEANSER FOR DECOLONIZATION TP SCH (21:57)
[2019-03-21] MEDS: MONTELUKAST NA 10 MG TABLET PO SCH (21:57)
[2019-03-22] MEDS ORDERED: DEXTROSE 5%-WATER - 50 ML IVPB ONE ×3 (02:28→17:04)
[2019-03-22] MEDS ORDERED: PIPERACILLIN/TAZOBACTAM 3.375 GM VIAL IVPB ONE ×3 (02:28→17:04)
[2019-03-22] MEDS: PIPERACILLIN/TAZOB 3.375 GM 3.375 GM in DEXTROSE 5%-WATER - 50 ML IVPB SCH ×3 (02:41→17:11)
[2019-03-22] MEDS: ALBUTEROL SO4 2.5/IPRATROPIUM 0.5 INH SOL 3 ML VIAL.NEB. NEB PRN (04:55)
[2019-03-22 06:40] LABS: BASO % 0.4 % (0-2.0); EOS % 0.1 % (0-4.5); HEMATOCRIT 34.5 % (35.4-49); LYMPH % 1.3 % (8-40); MCH 28.7 pg (25.7-33.7); MEAN CELL VOLUME 89.8 fl (80-96); MEAN PLT VOLUME 7.8 fl (7.5-11.1); MONO % 1.9 % (3.8-10.2); NEUT % 96.3 % (42.8-82.8); PLATELET COUNT 191 K/MM3 (134-434); RBC 3.84 M/mm3 (4.00-5.60); RDW 16.6 % (11.9-15.9); WHITE BLOOD COUNT 15.7 K/mm3 (4.0-10.0)
[2019-03-22 07:10] LABS: CALCIUM 8.2 mg/dL (8.5-10.1); MAGNESIUM 2.3 mg/dL (1.8-2.4); PHOSPHOROUS 3.2 mg/dL (2.5-4.9); POTASSIUM 4.5 mmol/L (3.5-5.1)
[2019-03-22] MEDS: ALBUTEROL SO4 2.5/IPRATROPIUM 0.5 INH SOL 3 ML VIAL.NEB. NEB SCH ×4 (08:10→20:24)
[2019-03-22] MEDS: PANTOPRAZOLE 40 MG TABLET (FP) PO SCH (09:03)
[2019-03-22] MEDS: RIVAROXABAN 20 MG TABLET PO SCH (09:03)
[2019-03-22] MEDS: methylPREDNISolone NA SUCC 40 MG/1 ML VIAL IVPUSH SCH (09:04)
[2019-03-22] MEDS: DIGOXIN 0.125 MG TABLET (FP) PO SCH (09:32)
[2019-03-22] MEDS: SODIUM CHLORIDE 1,000 ML IV SCH (09:34)
[2019-03-22 09:58] LABS: CREATININE 0.6 mg/dL (0.55-1.3)
[2019-03-22 10:20] LABS: ANISOCYTOSIS 1+; MACROCYTOSIS 0; PLATELET ESTIMATE NORMAL
[2019-03-22] MEDS ORDERED: ALBUTEROL SO4 0.083% IH SOL 2.5 MG/3 ML VIAL.NEB. NEB PRN (10:33)
--- NOTE | 2019-03-22 11:17 | PN ---
Teaching Attending Note Name of Resident: Billie Solis ATTENDING PHYSICIAN STATEMENT I saw and evaluated the patient. I reviewed the resident's note and discussed the case with the resident. I agree with the resident's findings and plan as documented. SUBJECTIVE: Pt seen and examined in the ICU. States breathing about the same, still dyspneic with minimal movements. OBJECTIVE: Vital Signs Period Temp Pulse Resp BP Sys/Wright Pulse Ox Last 24 Hr 97.5 F-98.4 F 110-130 13-36 125-148/94-107 95-100 Intake & Output 03/19/19 03/20/19 03/21/19 03/22/19 23:59 23:59 23:59 23:59 Intake Total 3657.4 3065.2 2085 472 Output Total 1550 2100 1025 600 Balance 2107.4 965.2 1060 -128 Weight 48.625 kg 52.254 kg 53.161 kg Gen: tachypneic at rest Heart: tachycardic, regular Lung: decreased breath sounds at the bases Abd: soft, nontender Ext: no edema CBC, BMP 03/22/19 05:30 03/22/19 05:30 Active Medications Albuterol Sulfate (Ventolin 0.083% Nebulizer Soln -) 1 amp NEB Q4H PRN PRN Reason: SHORT OF BREATH/WHEEZING Albuterol/Ipratropium (Duoneb -) 1 amp NEB RQID [facility] Last Admin: 03/22/19 08:10 Dose: 1 amp Chlorhexidine Gluconate (Hibiclens For Decolonization -) 1 applic TP HS [facility] Last Admin: 03/21/19 21:57 Dose: 1 applic Digoxin (Lanoxin -) 0.125 mg PO DAILY [facility] Last Admin: 03/22/19 09:32 Dose: 0.125 mg Piperacillin Sod/Tazobactam (Sod 3.375 gm/ Dextrose) 50 mls @ 100 mls/hr IVPB Q8H-IV [facility]; Protocol Last Admin: 03/22/19 09:32 Dose: 100 mls/hr Sodium Chloride (Normal Saline -) 1,000 mls @ 83 mls/hr IV [facility] Last Admin: 03/22/19 09:34 Dose: 83 mls/hr Methylprednisolone Sodium Succinate (Solu-Medrol -) 30 mg IVPUSH DAILY [facility] Montelukast Sodium (Singulair -) 10 mg PO HS [facility] Last Admin: 03/21/19 21:57 Dose: 10 mg Pantoprazole Sodium (Protonix -) 40 mg PO DAILY [facility] Last Admin: 03/22/19 09:03 Dose: 40 mg Rivaroxaban (Xarelto) 20 mg PO DAILY@0800 [facility] Last Admin: 03/22/19 09:03 Dose: 20 mg ASSESSMENT AND PLAN: Acute on Chronic Hypoxic and Hypercapneic Respiratory Failure Pneumonia Severe Sepsis resolving Lactic Acidosis LV Systolic Dysfunction Pulmonary Hypertension h/o Recurrent Pulmonary Emboli h/o Pulmonary Aspergillosis s/p RLL Lobectomy h/o Prostate Ca - continue antibiotics - f/u pending cultures - place on HFOT - O2 to keep SpO2 >90% - inhaled bronchodilators - can decrease medrol - PO as tolerated - rehab/PT - continue anticoagulation - continue ICU monitoring critical care time spent in reviewing chart, evaluating patient and formulating plan 35 min
[2019-03-22 12:36] LABS: ARTERIAL BLD GAS O2 SATURATION 91.9 % (95-98); ARTERIAL BLOOD GAS BASE EXCESS 0.6 meq/l (-2-2); ARTERIAL BLOOD GAS PCO2 38.2 mmHg (35-45); ARTERIAL BLOOD GAS PO2 64.6 mmHg (80-105); ARTERIAL BLOOD GAS pH 7.42 (7.35-7.45)
[2019-03-22 12:43] LABS: ALLENS TEST POSITIVE
[2019-03-22] MEDS ORDERED: METOPROLOL TARTRATE 5 MG/5 ML VIAL IVPUSH ONE (13:15)
--- NOTE | 2019-03-22 13:34 | PN ---
Progress Note, Physician History of Present Illness: patient became sob had to be put on high flow - Current Medication List Current Medications: Active Medications Albuterol Sulfate (Ventolin 0.083% Nebulizer Soln -) 1 amp NEB Q4H PRN PRN Reason: SHORT OF BREATH/WHEEZING Albuterol/Ipratropium (Duoneb -) 1 amp NEB RQID [facility] Last Admin: 03/22/19 08:10 Dose: 1 amp Chlorhexidine Gluconate (Hibiclens For Decolonization -) 1 applic TP HS [facility] Last Admin: 03/21/19 21:57 Dose: 1 applic Digoxin (Lanoxin -) 0.125 mg PO DAILY [facility] Last Admin: 03/22/19 09:32 Dose: 0.125 mg Piperacillin Sod/Tazobactam (Sod 3.375 gm/ Dextrose) 50 mls @ 100 mls/hr IVPB Q8H-IV [facility]; Protocol Last Admin: 03/22/19 09:32 Dose: 100 mls/hr Sodium Chloride (Normal Saline -) 1,000 mls @ 83 mls/hr IV ASDIR [facility] Last Admin: 03/22/19 09:34 Dose: 83 mls/hr Methylprednisolone Sodium Succinate (Solu-Medrol -) 30 mg IVPUSH DAILY [facility] Montelukast Sodium (Singulair -) 10 mg PO HS [facility] Last Admin: 03/21/19 21:57 Dose: 10 mg Pantoprazole Sodium (Protonix -) 40 mg PO DAILY [facility] Last Admin: 03/22/19 09:03 Dose: 40 mg Rivaroxaban (Xarelto) 20 mg PO DAILY@0800 [facility] Last Admin: 03/22/19 09:03 Dose: 20 mg - Objective Vital Signs: Vital Signs Temperature 98 F 03/22/19 12:00 Pulse Rate 119 H 03/22/19 12:00 Respiratory Rate 14 03/22/19 12:00 Blood Pressure 154/104 H 03/22/19 12:00 O2 Sat by Pulse Oximetry (%) 92 L 03/22/19 11:00 Constitutional: Yes: No Distress, Calm Cardiovascular: Yes: S1, S2 Respiratory: Yes: Regular, Poor Air Entry, Other (on high flow nasal o2) Gastrointestinal: Yes: Normal Bowel Sounds, Soft Musculoskeletal: Yes: WNL Extremities: Yes: WNL Neurological: Yes: Alert, Oriented Psychiatric: Yes: Alert, Oriented Labs: CBC, BMP 03/22/19 05:30 03/22/19 05:30 INR, PTT INR 2.20 (0.83-1.09) H 03/19/19 05:30 - ....Imaging Chest X-ray: Report Reviewed, Image Reviewed Assessment/Plan patient with multiple medical problems who is now intubated and sedated all work up has been send ASSESSMENT AND PLAN: Respiratory Failure Pneumonia Severe Sepsis Lactic Acidosis Pulmonary HTN h/o PE h/o of aspergellosis h/o of lobectomy sputum cx noted pseudomonas pneumonia plan continue zosyn resp support rest as per icu nutrition cc 40 min continue abx all cx reports noted will preetiw the team
[2019-03-22] MEDS ORDERED: metoPROLOL SUCCINATE 25 MG TAB.SR.24H (FP) PO SCH (14:00)
[2019-03-22] MEDS ORDERED: METOPROLOL TARTRATE 25 MG TABLET (FP) PO SCH (14:00)
--- NOTE | 2019-03-22 14:36 | CONSULT ---
Admitting History and Physical - Admission History of Present Illness: Patient is a 68 yo M h/o PAH s/p R heart cath, on home oxygen 2.5 LPM, multiple PE (most recent one 3 years ago) s/p clot retrieval currently on Xarelto, prostate CA, h/o pulmonary Aspergillus s/p RLL lobectomy in 2006 and reactive airway disease. Admitted to the ICU for acute on chronic hypercapnic respiratory failure. Intubated 03/16-03/21. Full fluids/then soft diet ordered on 03/21 . Pt on hi-jan. 03/22 CXR Progressive left infiltrate History Source: Patient, Medical Record Limitations to Obtaining History: Clinical Condition - Past Medical History Cardiovascular: Yes: HTN Pulmonary: Yes: Asthma, Pneumonia, Pulmonary Embolus - Smoking History Smoking history: Never smoked Have you smoked in the past 12 months: No - Alcohol/Substance Use Hx Alcohol Use: No History - Admission Reason For Visit: PULMONARY ARTERIAL HYPERSTENSION, INFILTRATE OF ELEONORA - Diagnostics X-ray: Report Reviewed - General Mental Status: Awake and Alert, Able to Follow Commands, Anxious, Vague, Flat Affect Attention: Distractible, Mild Impairment, Moderate Impairment Ability to Follow Directions: Fair - Hearing Hearing: Functional Hearing: Normal Speech Evaluation - Communication Primary Language: [place] Communication: Yes: Within Normal Limits (Delayed response but normal once he responds) - Speech Production Able to Make Needs Known: Yes: WNL Intelligibility: Yes: WNL - Speech Characteristics Voice Loudness: Normal Voice Pitch: Yes: Normal Voice Phonatory-based Quality: Yes: Normal Speech Pattern: Normal Speech Clarity: < 100% Nasal Resonance: Normal Articulation: Yes: Precise Rate of Speech: Intact - Language/Auditory Comprehension Follows: Yes: 1 Stage Simple Commands Observation: Able to respond to yes/no queries: Yes, Comprehends Conversational Speech: Yes - Language/Verbal Expression Able to Communicate Wants and Needs: Yes: WNL - Swallow Evaluation/Bedside Assessment Current Nutritional Intake: Regular, Thin Liquids Oral Secretions: Yes: WFL Dentition: Yes: Missing Teeth Lingual Speed of Movement: Normal Lingual Movement Strgth Against Opposition: Normal Lingual Movement Characteristics: Normal Labial Seal: WFL Oral Prep Time: WFL A-P Transit: WFL Timing of Swallow: Delayed Coughing/Throat Clear: No Change in Voice: No Recommendations - Speech Evaluation, Impression/Plan Impression: Pt verbal, SOB, RR 26, O2 93. Pt reports increased RR with po trials. When assessed, RR increased to 35 and o2 to 89/90. Swallow seems brisk. No overt cough or change in vocal quality.need for respiratory cessation to swallow may increase respiratory rate and risk of aspiration. Pt denied reverse flow/difficulty swallowing or getting food down.Insists on laying flat which can result in retrograde aspiration. Pt had reg solid food for breakfast. Magic cup/ensure/jello with grapes at bedside.Pt c/o increasing RR with all PO trials, does best with liquids. Delayed speech initiation, almost trying to time verbalizations with respiratory control. However, speech production if fairly strong with good volume, produces 8 syllables per breath. - Dysphagia Impressions/Plan Dysphagia Impressions: Ongoing Evaluation *Silent aspiration: cannot be R/O at bedside - Recommendations Diet Consistency: Other (Trial puree or full fluid. Ideally HOB elevated, although pt is refusing, reports it is more difficult to breath.) Supplement: Pulmocare (if available)
--- NOTE | 2019-03-22 15:30 | PN ---
Physical Exam: SUBJECTIVE: Patient seen and examined at bedside this morning. Patient on venti mask overnight, maintaining saturation >90%. During rounds, patient was switched to high flow. Becomes tachycardic and tachypneic with minimal movement. He denies fever, chills, headache, dizziness, chest pain, abdominal pain, urinary symptoms. OBJECTIVE: Vital Signs Temperature 98 F 03/22/19 12:00 Pulse Rate 118 H 03/22/19 13:34 Respiratory Rate 14 03/22/19 12:00 Blood Pressure 154/104 H 03/22/19 13:34 O2 Sat by Pulse Oximetry (%) 92 L 03/22/19 11:00 GENERAL: The patient is awake, alert, and oriented, on HFOT. HEAD: Normal with no signs of trauma. EYES: PERRLA,EOMI, sclera anicteric, conjunctiva clear. ENT: oropharynx clear without exudates, moist mucous membranes. LUNGS: Decreased breath sounds on the Right, scattered rhonchi HEART: Tachycardic, S1, S2 without murmur, rub or gallop. ABDOMEN: Soft, nontender, nondistended, normoactive bowel sounds. EXTREMITIES: 2+ pulses, warm, well-perfused, no edema. SKIN: Warm, dry, normal turgor, no rashes or lesions noted Laboratory Results - last 24 hr 03/22/19 03/22/19 03/22/19 05:30 05:30 12:25 WBC 15.7 H RBC 3.84 L Hgb 11.0 L Hct 34.5 L MCV 89.8 MCH 28.7 MCHC 32.0 RDW 16.6 H Plt Count 191 D MPV 7.8 Absolute Neuts (auto) 15.1 H Neutrophils % 96.3 H Neutrophils % (Manual) 89.0 H Band Neutrophils % 1.0 Lymphocytes % 1.3 L Lymphocytes % (Manual) 4.0 L D Monocytes % 1.9 L Monocytes % (Manual) 5 D Eosinophils % 0.1 D Eosinophils % (Manual) 0.0 Basophils % 0.4 Basophils % (Manual) 0.0 Myelocytes % (Man) 1 Promyelocytes % (Man) 0 Blast Cells % (Manual) 0 Nucleated RBC % 2 H Metamyelocytes 0 Hypochromia 0 Platelet Estimate Normal Polychromasia 1+ Poikilocytosis 0 Anisocytosis 1+ Microcytosis 1+ Macrocytosis 0 Puncture Site Left radial ABG pH 7.42 ABG pCO2 at Pt Temp 38.2 ABG pO2 at Pt Temp 64.6 L ABG HCO3 24.4 ABG O2 Sat (Measured) 91.9 L ABG O2 Content 14.0 L ABG Base Excess 0.6 David Test Positive O2 Delivery Device High flow Oxygen Flow Rate 40% Sodium 147 H Potassium 4.5 Chloride 115 H Carbon Dioxide 25 Anion Gap 7 L BUN 18 Creatinine 0.6 Est GFR (CKD-EPI)AfAm 119.74 Est GFR (CKD-EPI)NonAf 103.31 Random Glucose 101 Calcium 8.2 L Phosphorus 3.2 Magnesium 2.3 Digoxin 0.90 Active Medications Generic Name Dose Route Start Last Admin Trade Name Freq PRN Reason Stop Dose Admin Albuterol Sulfate 1 amp 03/22/19 10:33 Ventolin 0.083% Nebulizer Soln - NEB Q4H PRN SHORT OF BREATH/WHEEZING Albuterol/Ipratropium 1 amp 03/15/19 20:00 03/22/19 11:55 Duoneb - NEB 1 amp RQID [facility] Administration Chlorhexidine Gluconate 1 applic 03/15/19 22:00 03/21/19 21:57 Hibiclens For Decolonization - TP 1 applic HS [facility] Administration Digoxin 0.125 mg 03/16/19 10:00 03/22/19 09:32 Lanoxin - PO 0.125 mg DAILY [facility] Administration Piperacillin Sod/Tazobactam 50 mls @ 100 mls/hr 03/16/19 18:00 03/22/19 09:32 Sod 3.375 gm/ Dextrose IVPB 100 mls/hr Q8H-IV [facility] Administration Protocol Sodium Chloride 1,000 mls @ 83 mls/hr 03/18/19 07:15 03/22/19 09:34 Normal Saline - IV 83 mls/hr ASDIR [facility] Administration Methylprednisolone Sodium Succinate 30 mg 03/23/19 10:00 Solu-Medrol - IVPUSH DAILY [facility] Metoprolol Tartrate 25 mg 03/22/19 14:00 03/22/19 15:11 Lopressor - PO 25 mg DAILY [facility] Administration Montelukast Sodium 10 mg 03/16/19 22:00 03/21/19 21:57 Singulair - PO 10 mg HS [facility] Administration Pantoprazole Sodium 40 mg 03/16/19 10:00 03/22/19 09:03 Protonix - PO 40 mg DAILY [facility] Administration Rivaroxaban 20 mg 03/16/19 08:00 03/22/19 09:03 Xarelto PO 20 mg DAILY@0800 [facility] Administration ASSESSMENT/PLAN: Patient is a 68 yo M h/o PAH s/p R heart cath, on home oxygen 2.5 LPM, multiple PE (most recent one 3 years ago) s/p clot retrieval currently on Xarelto, prostate CA, h/o pulmonary Aspergillus s/p RLL lobectomy in 2006 and reactive airway disease. Admitted to the ICU for acute on chronic hypercapnic respiratory failure. #Neuro -Alert and oriented, off sedation #Cardiovascular: 1. LV systolic dysfunction 2. Pulmonary HTN -Cardiology (Dr. Herndon) consulted. Recommendations appreciated. -Tachycardic with MAPs maintained above 65. -Continue Digoxin per home dose. -ECHO revealed severe LV dysfunction. Will closely monitor fluid status. Noted only mild pulmonary hypertension. 3. Sinus tachycardia vs atrial tachycardia -EKG/tele showing rapid regular rhythm -As per cardiology, may be due to infection, hypoxia and poor pulmonary status 4. HTN -will start Metoprolol 25 mg daily. #Pulmo 1. Acute on Chronic Hypoxic and Hypercapneic Respiratory Failure -Trial of extubation -Outpatient pneumonia diagnosis s/p Augmentin course. Infiltrates noted on CXR. -Continue antibiotics -Duonebs RQID, Singulair. -Decrease IV Solu-medrol to 30mg daily 2. Hx of PE. -Continue Xeralto 20mg daily -No evidence of massive PE on CTA. 3. Hx of RIGHT lower lobe lobectomy insetting of Aspergillosis infection. #Gastrointestinal: -Continue home Pantoprazole. -on soft diet -Speech and Swallow evaluation #Genitourinary: -Hx of prostate cancer -monitor UO #ID 1. Severe sepsis likely 2/2 PNA -ID (Dr. Cody) consulted. Recommendations appreciated. -Continue Zosyn 3.375gm q8h -sputum culture - Pseudomonas, Staph latex coag positive, yeast like organism -Sputum AFB culture pending -Blood cultures negative #FEN: -Not on any standing fluids -Routine bmp monitoring -Soft diet #Prophylaxis: -DVT: Xarelto 20mg daily -GI: Pantoprazole 40mg daily #Dispo: -ICU monitoring Visit type - Emergency Visit Emergency Visit: Yes ED Registration Date: 03/15/19 Care time: The patient presented to the Emergency Department on the above date and was hospitalized for further evaluation of their emergent condition. - New Patient This patient is new to me today: No - Critical Care Critical Care patient: Yes Total Critical Care Time (in minutes): 36 Critical Care Statement: The care of this patient involved high complexity decision making to prevent further life threatening deterioration of the patient 's condition and/or to evaluate & treat vital organ system(s) failure or risk of failure.
[2019-03-22] MEDS ORDERED: INSULIN (NOVOLOG) ASPART 100 UNITS/ML 10ML VIAL ONE (17:04)
--- NOTE | 2019-03-22 18:15 | PN ---
Progress Note, Physician History of Present Illness: stable - Current Medication List Current Medications: Active Medications Albuterol Sulfate (Ventolin 0.083% Nebulizer Soln -) 1 amp NEB Q4H PRN PRN Reason: SHORT OF BREATH/WHEEZING Albuterol/Ipratropium (Duoneb -) 1 amp NEB RQID [facility] Last Admin: 03/22/19 11:55 Dose: 1 amp Chlorhexidine Gluconate (Hibiclens For Decolonization -) 1 applic TP HS [facility] Last Admin: 03/21/19 21:57 Dose: 1 applic Digoxin (Lanoxin -) 0.125 mg PO DAILY [facility] Last Admin: 03/22/19 09:32 Dose: 0.125 mg Piperacillin Sod/Tazobactam (Sod 3.375 gm/ Dextrose) 50 mls @ 100 mls/hr IVPB Q8H-IV [facility]; Protocol Last Admin: 03/22/19 17:11 Dose: 100 mls/hr Methylprednisolone Sodium Succinate (Solu-Medrol -) 30 mg IVPUSH DAILY [facility] Metoprolol Tartrate (Lopressor -) 25 mg PO DAILY [facility] Last Admin: 03/22/19 15:11 Dose: 25 mg Montelukast Sodium (Singulair -) 10 mg PO HS [facility] Last Admin: 03/21/19 21:57 Dose: 10 mg Pantoprazole Sodium (Protonix -) 40 mg PO DAILY [facility] Last Admin: 03/22/19 09:03 Dose: 40 mg Rivaroxaban (Xarelto) 20 mg PO DAILY@0800 [facility] Last Admin: 03/22/19 09:03 Dose: 20 mg - Objective Vital Signs: Vital Signs Temperature 98.4 F 03/22/19 16:00 Pulse Rate 116 H 03/22/19 16:00 Respiratory Rate 30 H 03/22/19 16:00 Blood Pressure 137/101 H 03/22/19 16:00 O2 Sat by Pulse Oximetry (%) 92 L 03/22/19 11:00 Constitutional: Yes: No Distress HENT: Yes: Atraumatic Neck: Yes: Supple Cardiovascular: Yes: Regular Rate and Rhythm Respiratory: Yes: CTA Bilaterally Gastrointestinal: Yes: Normal Bowel Sounds Extremities: Yes: WNL Edema: No Neurological: Yes: Alert, Oriented Labs: CBC, BMP 03/22/19 05:30 03/22/19 05:30 INR, PTT INR 2.20 (0.83-1.09) H 03/19/19 05:30 Problem List - Problems (1) Cor pulmonale Assessment/Plan: stable Code(s): I27.81 - COR PULMONALE (CHRONIC) (2) Hypoxia Assessment/Plan: extubated stable Code(s): R09.02 - HYPOXEMIA (3) Pulmonary arterial hypertension Code(s): I27.21 - SECONDARY PULMONARY ARTERIAL HYPERTENSION (4) Respiratory distress Assessment/Plan: stable Code(s): R06.03 - ACUTE RESPIRATORY DISTRESS (5) Lung infiltrate Assessment/Plan: on iv abx Code(s): R91.8 - OTHER NONSPECIFIC ABNORMAL FINDING OF LUNG FIELD Assessment/Plan ASSESSMENT AND PLAN: Respiratory Failure Pneumonia Severe Sepsis Lactic Acidosis Pulmonary HTN h/o PE h/o of aspergellosis h/o of lobectomy plan iv empiric abx iv steroids sputum cx nutrition pt is intubated dvt ppx icu cc time 40 min
[2019-03-22] MEDS ORDERED: MELATONIN 5 MG TABLETS PO ONE (21:00)
[2019-03-22] MEDS: MONTELUKAST NA 10 MG TABLET PO SCH (21:29)
[2019-03-22] MEDS: CHLORHEXIDINE GLUCONATE 4% CLEANSER FOR DECOLONIZATION TP SCH (21:29)
[2019-03-23] MEDS ORDERED: PIPERACILLIN/TAZOBACTAM 3.375 GM VIAL IVPB ONE ×4 (00:30→21:26)
[2019-03-23] MEDS ORDERED: DEXTROSE 5%-WATER - 50 ML IVPB ONE ×4 (00:30→21:26)
[2019-03-23] MEDS: PIPERACILLIN/TAZOB 3.375 GM 3.375 GM in DEXTROSE 5%-WATER - 50 ML IVPB SCH ×3 (01:31→18:31)
[2019-03-23 06:37] LABS: ARTERIAL BLD GAS O2 SATURATION 84.7 % (95-98); ARTERIAL BLOOD GAS BASE EXCESS -2.1 meq/l (-2-2); ARTERIAL BLOOD GAS PCO2 46.2 mmHg (35-45); ARTERIAL BLOOD GAS PO2 57.6 mmHg (80-105); ARTERIAL BLOOD GAS pH 7.33 (7.35-7.45)
[2019-03-23 06:37] LABS: BASO % 0.3 % (0-2.0); EOS % 0.1 % (0-4.5); HEMOGLOBIN 11.1 GM/dL (11.7-16.9); LYMPH % 1.9 % (8-40); MCH 28.7 pg (25.7-33.7); MCHC 31.7 g/dl (32.0-35.9); MEAN CELL VOLUME 90.6 fl (80-96); MEAN PLT VOLUME 7.6 fl (7.5-11.1); MONO % 5.7 % (3.8-10.2); PLATELET COUNT 184 K/MM3 (134-434); RBC 3.86 M/mm3 (4.00-5.60); RDW 16.7 % (11.9-15.9)
[2019-03-23 06:47] LABS: ALLENS TEST POSITIVE
[2019-03-23 06:54] LABS: CALCIUM 8.3 mg/dL (8.5-10.1); CREATININE 0.8 mg/dL (0.55-1.3); MAGNESIUM 2.2 mg/dL (1.8-2.4); PHOSPHOROUS 4.1 mg/dL (2.5-4.9); POTASSIUM 4.8 mmol/L (3.5-5.1)
[2019-03-23] MEDS: ALBUTEROL SO4 2.5/IPRATROPIUM 0.5 INH SOL 3 ML VIAL.NEB. NEB SCH ×4 (07:30→19:45)
[2019-03-23] MEDS: RIVAROXABAN 20 MG TABLET PO SCH (08:00)
[2019-03-23] MEDS: PANTOPRAZOLE 40 MG TABLET (FP) PO SCH (09:27)
[2019-03-23] MEDS: DIGOXIN 0.125 MG TABLET (FP) PO SCH (09:27)
[2019-03-23] MEDS: methylPREDNISolone NA SUCC 40 MG/1 ML VIAL IVPUSH SCH (09:42)
[2019-03-23] MEDS ORDERED: METOPROLOL TARTRATE 25 MG TABLET (FP) PO SCH (10:00)
--- NOTE | 2019-03-23 10:38 | PN ---
Progress Note, Physician History of Present Illness: patient tachypnoeic still on high flow oxygen - Current Medication List Current Medications: Active Medications Albuterol Sulfate (Ventolin 0.083% Nebulizer Soln -) 1 amp NEB Q4H PRN PRN Reason: SHORT OF BREATH/WHEEZING Albuterol/Ipratropium (Duoneb -) 1 amp NEB RQID [facility] Last Admin: 03/23/19 07:30 Dose: 1 amp Chlorhexidine Gluconate (Hibiclens For Decolonization -) 1 applic TP HS [facility] Last Admin: 03/22/19 21:29 Dose: 1 applic Digoxin (Lanoxin -) 0.125 mg PO DAILY [facility] Last Admin: 03/23/19 09:27 Dose: 0.125 mg Piperacillin Sod/Tazobactam (Sod 3.375 gm/ Dextrose) 50 mls @ 100 mls/hr IVPB Q8H-IV [facility]; Protocol Last Admin: 03/23/19 09:27 Dose: 100 mls/hr Methylprednisolone Sodium Succinate (Solu-Medrol -) 30 mg IVPUSH DAILY [facility] Last Admin: 03/23/19 09:42 Dose: 30 mg Metoprolol Tartrate (Lopressor -) 25 mg PO BID [facility] Last Admin: 03/23/19 09:42 Dose: 25 mg Montelukast Sodium (Singulair -) 10 mg PO HS [facility] Last Admin: 03/22/19 21:29 Dose: 10 mg Pantoprazole Sodium (Protonix -) 40 mg PO DAILY [facility] Last Admin: 03/23/19 09:27 Dose: 40 mg Rivaroxaban (Xarelto) 20 mg PO DAILY@0800 [facility] Last Admin: 03/23/19 08:00 Dose: 20 mg - Objective Vital Signs: Vital Signs Temperature 97.8 F 03/23/19 08:00 Pulse Rate 115 H 03/23/19 10:00 Respiratory Rate 27 H 03/23/19 10:00 Blood Pressure 152/113 H 03/23/19 10:00 O2 Sat by Pulse Oximetry (%) 86 L 03/23/19 09:00 Constitutional: Yes: Anxious, Mild Distress Cardiovascular: Yes: Regular Rate and Rhythm Respiratory: Yes: Poor Air Entry (bases), Other (on high flow) Musculoskeletal: Yes: WNL Extremities: Yes: WNL Neurological: Yes: Alert, Oriented Psychiatric: Yes: Alert, Oriented Labs: CBC, BMP 03/23/19 05:30 03/23/19 05:30 INR, PTT INR 2.20 (0.83-1.09) H 03/19/19 05:30 Assessment/Plan patient with multiple medical problems who is now intubated and sedated all work up has been send ASSESSMENT AND PLAN: Respiratory Failure Pneumonia Severe Sepsis Lactic Acidosis Pulmonary HTN h/o PE h/o of aspergellosis h/o of lobectomy sputum cx noted pseudomonas pneumonia plan continue zosyn resp support rest as per icu nutrition cc 35min patients resp status still not good
[2019-03-23 11:37] LABS: ANISOCYTOSIS 1+; MACROCYTOSIS 0; PLATELET ESTIMATE NORMAL
[2019-03-23 12:06] LABS: CORRECTED WBC 14.35 K/mm3
[2019-03-23 12:08] LABS: WHITE BLOOD COUNT 17.8 K/mm3 (4.0-10.0)
--- NOTE | 2019-03-23 14:01 | PN ---
Teaching Attending Note Name of Resident: Billie Solis ATTENDING PHYSICIAN STATEMENT I saw and evaluated the patient. I reviewed the resident's note and discussed the case with the resident. I agree with the resident's findings and plan as documented. SUBJECTIVE: Patient seen and examined in the ICU. Dyspneic with minimal movements and now placed on NIPPV with good effect. Discussed the possibility that he may need re-intubation. He said that is his condition deteriorated to that point he would want intervention. OBJECTIVE: Intake & Output 03/20/19 03/21/19 03/22/19 03/23/19 23:59 23:59 23:59 23:59 Intake Total 3065.2 2085 1485 1096 Output Total 2100 1025 1600 200 Balance 965.2 1060 -115 896 Weight 107 lb 3.2 oz 115 lb 3.2 oz 117 lb 3.2 oz 114 lb 5 oz Last Vital Signs Temp Pulse Resp BP Pulse Ox 97.8 F 110 H 23 H 120/97 86 L 03/23/19 08:00 03/23/19 12:00 03/23/19 12:00 03/23/19 12:00 03/23/19 09:00 Active Medications Albuterol Sulfate (Ventolin 0.083% Nebulizer Soln -) 1 amp NEB Q4H PRN PRN Reason: SHORT OF BREATH/WHEEZING Albuterol/Ipratropium (Duoneb -) 1 amp NEB RQID [facility] Last Admin: 03/23/19 07:30 Dose: 1 amp Chlorhexidine Gluconate (Hibiclens For Decolonization -) 1 applic TP HS [facility] Last Admin: 03/22/19 21:29 Dose: 1 applic Digoxin (Lanoxin -) 0.125 mg PO DAILY [facility] Last Admin: 03/23/19 09:27 Dose: 0.125 mg Piperacillin Sod/Tazobactam (Sod 3.375 gm/ Dextrose) 50 mls @ 100 mls/hr IVPB Q8H-IV [facility]; Protocol Last Admin: 03/23/19 09:27 Dose: 100 mls/hr Methylprednisolone Sodium Succinate (Solu-Medrol -) 30 mg IVPUSH DAILY [facility] Last Admin: 03/23/19 09:42 Dose: 30 mg Montelukast Sodium (Singulair -) 10 mg PO [facility] Last Admin: 03/22/19 21:29 Dose: 10 mg Pantoprazole Sodium (Protonix -) 40 mg PO DAILY [facility] Last Admin: 03/23/19 09:27 Dose: 40 mg Rivaroxaban (Xarelto) 20 mg PO DAILY@0800 [facility] Last Admin: 03/23/19 08:00 Dose: 20 mg Gen: tachypneic at rest Heart: tachycardic, regular Lung: decreased breath sounds at the bases Abd: soft, nontender Ext: no edema Laboratory Results - last 24 hr 03/23/19 03/23/19 03/23/19 05:30 05:30 06:25 WBC 17.8 H Corrected WBC (auto) 14.35 RBC 3.86 L Hgb 11.1 L Hct 35.0 L MCV 90.6 MCH 28.7 MCHC 31.7 L RDW 16.7 H Plt Count 184 MPV 7.6 Absolute Neuts (auto) 14.9 H Neutrophils % 92.0 H Neutrophils % (Manual) 89.5 H Band Neutrophils % 1.0 Lymphocytes % 1.9 L D Lymphocytes % (Manual) 0.9 L Monocytes % 5.7 D Monocytes % (Manual) 6 Eosinophils % 0.1 Eosinophils % (Manual) 0.0 Basophils % 0.3 Basophils % (Manual) 0.0 Myelocytes % (Man) 3 H D Promyelocytes % (Man) 0 Blast Cells % (Manual) 0 Nucleated RBC % 24 H* D Metamyelocytes 0 Hypochromia 0 Platelet Estimate Normal Polychromasia 1+ Poikilocytosis 0 Anisocytosis 1+ Microcytosis 1+ Macrocytosis 0 Puncture Site Right brachial ABG pH 7.33 L ABG pCO2 at Pt Temp 46.2 H ABG pO2 at Pt Temp 57.6 L ABG HCO3 23.4 ABG O2 Sat (Measured) 84.7 L ABG O2 Content 13.4 L ABG Base Excess -2.1 L David Test Positive O2 Delivery Device High flow Oxygen Flow Rate 50% Sodium 149 H Potassium 4.8 Chloride 117 H Carbon Dioxide 25 Anion Gap 7 L BUN 28 H Creatinine 0.8 Est GFR (CKD-EPI)AfAm 106.38 Est GFR (CKD-EPI)NonAf 91.79 Random Glucose 72 L Calcium 8.3 L Phosphorus 4.1 Magnesium 2.2 Digoxin 1.24 ASSESSMENT AND PLAN: Acute on Chronic Hypoxic and Hypercapneic Respiratory Failure Pneumonia Severe Sepsis resolving Lactic Acidosis LV Systolic Dysfunction Pulmonary Hypertension h/o Recurrent Pulmonary Emboli h/o Pulmonary Aspergillosis s/p RLL Lobectomy h/o Prostate Ca - Low threshold for intubation and mechanical ventilation - NIPPV trial as tolerated - ABX per ID - Aspiration precautions - Follow CXR - inhaled bronchodilators - Medrol - PO as tolerated - continue anticoagulation - continue ICU monitoring for tenuous respiratory status Dr Daugherty Critical care time spent in reviewing chart, evaluating patient and formulating plan 35 min
--- NOTE | 2019-03-23 14:06 | PN ---
Progress Note, CREDIT CONTROL MANAGER - Note Progress Note: Selected Entries 03/21/19 03/21/19 03/21/19 02:00 10:00 14:00 Breakfast Diet Tolerated Supper Temperature 97 F L 97.5 F L 97.5 F L 03/21/19 03/21/19 03/21/19 16:00 18:00 22:00 Breakfast Diet Tolerated Supper 25% Temperature 97.6 F 97.6 F 03/22/19 03/22/19 03/22/19 02:00 04:00 06:00 Breakfast Diet Tolerated Supper Temperature 98.4 F 98.4 F 97.6 F 03/22/19 03/22/19 03/22/19 09:18 11:00 12:00 Breakfast 50% 50% Diet Tolerated Supper Temperature 98 F 03/23/19 10:00 Breakfast Diet Tolerated Fair Supper 50% Temperature Laboratory Tests 03/20/19 03/21/19 03/22/19 05:30 05:30 05:30 WBC 13.4 H 14.2 H 15.7 H 03/23/19 05:30 WBC 17.8 H On steroids. Case reviewed with Pulm/Critical care. On BIPAP, more comfortable. Taking Ensure enlive, reclining per pt is most comfortable. May require ventilator again, at which time NGT feedings would benefit him.
--- NOTE | 2019-03-23 16:02 | PN ---
Physical Exam: SUBJECTIVE: Patient seen and examined at bedside this morning. Patient desaturating to 80s on high flow this morning, speaking in phrases. Patient denies any worsening of symptoms, but agrees on bilevel for now and possible re- intubation. OBJECTIVE: Vital Signs Temperature 97.8 F 03/23/19 08:00 Pulse Rate 112 H 03/23/19 14:00 Respiratory Rate 20 03/23/19 14:00 Blood Pressure 118/93 03/23/19 14:00 O2 Sat by Pulse Oximetry (%) 88 L 03/23/19 11:35 GENERAL: The patient is awake, alert, and oriented, on NIPPV. HEAD: Normal with no signs of trauma. EYES: PERRLA,EOMI, sclera anicteric, conjunctiva clear. ENT: oropharynx clear without exudates, moist mucous membranes. LUNGS: Decreased breath sounds on the Right, scattered rhonchi HEART: Tachycardic, S1, S2 without murmur, rub or gallop. ABDOMEN: Soft, nontender, nondistended, normoactive bowel sounds. EXTREMITIES: 2+ pulses, warm, well-perfused, no edema. SKIN: Warm, dry, normal turgor, no rashes or lesions noted Laboratory Results - last 24 hr 03/21/19 03/23/19 03/23/19 12:20 05:30 05:30 WBC 17.8 H Corrected WBC (auto) 14.35 RBC 3.86 L Hgb 11.1 L Hct 35.0 L MCV 90.6 MCH 28.7 MCHC 31.7 L RDW 16.7 H Plt Count 184 MPV 7.6 Absolute Neuts (auto) 14.9 H Neutrophils % 92.0 H Neutrophils % (Manual) 89.5 H Band Neutrophils % 1.0 Lymphocytes % 1.9 L D Lymphocytes % (Manual) 0.9 L Monocytes % 5.7 D Monocytes % (Manual) 6 Eosinophils % 0.1 Eosinophils % (Manual) 0.0 Basophils % 0.3 Basophils % (Manual) 0.0 Myelocytes % (Man) 3 H D Promyelocytes % (Man) 0 Blast Cells % (Manual) 0 Nucleated RBC % 24 H* D Metamyelocytes 0 Hypochromia 0 Platelet Estimate Normal Polychromasia 1+ Poikilocytosis 0 Anisocytosis 1+ Microcytosis 1+ Macrocytosis 0 Puncture Site ABG pH ABG pCO2 at Pt Temp ABG pO2 at Pt Temp ABG HCO3 ABG O2 Sat (Measured) ABG O2 Content ABG Base Excess David Test O2 Delivery Device Oxygen Flow Rate Sodium 149 H Potassium 4.8 Chloride 117 H Carbon Dioxide 25 Anion Gap 7 L BUN 28 H Creatinine 0.8 Est GFR (CKD-EPI)AfAm 106.38 Est GFR (CKD-EPI)NonAf 91.79 Random Glucose 72 L Calcium 8.3 L Phosphorus 4.1 Magnesium 2.2 Digoxin 1.24 TB Test (QFT) Nil 0.03 TB Test (QFT) Mitogen 0.04 TB Test (QFT) Antigen 0.03 TB Test (QFT) Indeterminate TB Positive Criteria 03/23/19 06:25 WBC Corrected WBC (auto) RBC Hgb Hct MCV MCH MCHC RDW Plt Count MPV Absolute Neuts (auto) Neutrophils % Neutrophils % (Manual) Band Neutrophils % Lymphocytes % Lymphocytes % (Manual) Monocytes % Monocytes % (Manual) Eosinophils % Eosinophils % (Manual) Basophils % Basophils % (Manual) Myelocytes % (Man) Promyelocytes % (Man) Blast Cells % (Manual) Nucleated RBC % Metamyelocytes Hypochromia Platelet Estimate Polychromasia Poikilocytosis Anisocytosis Microcytosis Macrocytosis Puncture Site Right brachial ABG pH 7.33 L ABG pCO2 at Pt Temp 46.2 H ABG pO2 at Pt Temp 57.6 L ABG HCO3 23.4 ABG O2 Sat (Measured) 84.7 L ABG O2 Content 13.4 L ABG Base Excess -2.1 L David Test Positive O2 Delivery Device High flow Oxygen Flow Rate 50% Sodium Potassium Chloride Carbon Dioxide Anion Gap BUN Creatinine Est GFR (CKD-EPI)AfAm Est GFR (CKD-EPI)NonAf Random Glucose Calcium Phosphorus Magnesium Digoxin TB Test (QFT) Nil TB Test (QFT) Mitogen TB Test (QFT) Antigen TB Test (QFT) TB Positive Criteria Active Medications Generic Name Dose Route Start Last Admin Trade Name Freq PRN Reason Stop Dose Admin Albuterol Sulfate 1 amp 03/22/19 10:33 Ventolin 0.083% Nebulizer Soln - NEB Q4H PRN SHORT OF BREATH/WHEEZING Albuterol/Ipratropium 1 amp 03/15/19 20:00 03/23/19 15:15 Duoneb - NEB 1 amp RQID [facility] Administration Chlorhexidine Gluconate 1 applic 03/15/19 22:00 03/22/19 21:29 Hibiclens For Decolonization - TP 1 applic HS [facility] Administration Digoxin 0.125 mg 03/16/19 10:00 03/23/19 09:27 Lanoxin - PO 0.125 mg DAILY [facility] Administration Piperacillin Sod/Tazobactam 50 mls @ 100 mls/hr 03/16/19 18:00 03/23/19 09:27 Sod 3.375 gm/ Dextrose IVPB 100 mls/hr Q8H-IV [facility] Administration Protocol Methylprednisolone Sodium Succinate 30 mg 03/23/19 10:00 03/23/19 09:42 Solu-Medrol - IVPUSH 30 mg DAILY [facility] Administration Montelukast Sodium 10 mg 03/16/19 22:00 03/22/19 21:29 Singulair - PO 10 mg HS [facility] Administration Pantoprazole Sodium 40 mg 03/16/19 10:00 03/23/19 09:27 Protonix - PO 40 mg DAILY [facility] Administration Rivaroxaban 20 mg 03/16/19 08:00 03/23/19 08:00 Xarelto PO 20 mg DAILY@0800 [facility] Administration ASSESSMENT/PLAN: Patient is a 68 yo M h/o PAH s/p R heart cath, on home oxygen 2.5 LPM, multiple PE (most recent one 3 years ago) s/p clot retrieval currently on Xarelto, prostate CA, h/o pulmonary Aspergillus s/p RLL lobectomy in 2006 and reactive airway disease. Admitted to the ICU for acute on chronic hypercapnic respiratory failure. #Neuro -Alert and oriented, off sedation #Cardiovascular: 1. LV systolic dysfunction 2. Pulmonary HTN -Cardiology (Dr. Herndon) consulted. Recommendations appreciated. -Tachycardic with MAPs maintained above 65. -Continue Digoxin per home dose. -ECHO revealed severe LV dysfunction. Will closely monitor fluid status. Noted only mild pulmonary hypertension. 3. Sinus tachycardia vs atrial tachycardia -EKG/tele showing rapid regular rhythm -As per cardiology, may be due to infection, hypoxia and poor pulmonary status #Pulmo 1. Acute on Chronic Hypoxic and Hypercapneic Respiratory Failure -Placed on NIPPV this morning, maintaining SpO2 >88% -Low threshold for intubation and mechanical ventilation -Outpatient pneumonia diagnosis s/p Augmentin course. Infiltrates noted on CXR. -Continue antibiotics -Duonebs RQID, Singulair. -IV Solu-medrol to 30mg daily -Aspiration precautions -CXR daily 2. Hx of PE. -Continue Xeralto 20mg daily -No evidence of massive PE on CTA. 3. Hx of RIGHT lower lobe lobectomy insetting of Aspergillosis infection. #Gastrointestinal: -Continue home Pantoprazole. -on soft diet with nutritional supplement -Speech and Swallow evaluation #Genitourinary: -Hx of prostate cancer -monitor UO #ID 1. Severe sepsis likely 2/2 PNA -ID (Dr. Cody) consulted. Recommendations appreciated. -Continue Zosyn 3.375gm q8h -sputum culture - Pseudomonas, Staph latex coag positive, yeast like organism -Sputum AFB culture pending -Blood cultures negative #FEN -Not on any standing fluids -Routine bmp monitoring -Soft diet with nutritional supplement #Prophylaxis -DVT: Xarelto 20mg daily -GI: Pantoprazole 40mg daily #Dispo: -ICU monitoring Visit type - Emergency Visit Emergency Visit: Yes ED Registration Date: 03/15/19 Care time: The patient presented to the Emergency Department on the above date and was hospitalized for further evaluation of their emergent condition. - New Patient This patient is new to me today: No - Critical Care Critical Care patient: Yes Total Critical Care Time (in minutes): 38 Critical Care Statement: The care of this patient involved high complexity decision making to prevent further life threatening deterioration of the patient 's condition and/or to evaluate & treat vital organ system(s) failure or risk of failure.
--- NOTE | 2019-03-23 17:24 | PN ---
Progress Note, Physician History of Present Illness: stable - Current Medication List Current Medications: Active Medications Albuterol Sulfate (Ventolin 0.083% Nebulizer Soln -) 1 amp NEB Q4H PRN PRN Reason: SHORT OF BREATH/WHEEZING Albuterol/Ipratropium (Duoneb -) 1 amp NEB RQID [facility] Last Admin: 03/23/19 15:15 Dose: 1 amp Chlorhexidine Gluconate (Hibiclens For Decolonization -) 1 applic TP HS [facility] Last Admin: 03/22/19 21:29 Dose: 1 applic Digoxin (Lanoxin -) 0.125 mg PO DAILY [facility] Last Admin: 03/23/19 09:27 Dose: 0.125 mg Piperacillin Sod/Tazobactam (Sod 3.375 gm/ Dextrose) 50 mls @ 100 mls/hr IVPB Q8H-IV [facility]; Protocol Last Admin: 03/23/19 09:27 Dose: 100 mls/hr Methylprednisolone Sodium Succinate (Solu-Medrol -) 30 mg IVPUSH DAILY [facility] Last Admin: 03/23/19 09:42 Dose: 30 mg Montelukast Sodium (Singulair -) 10 mg PO HS [facility] Last Admin: 03/22/19 21:29 Dose: 10 mg Pantoprazole Sodium (Protonix -) 40 mg PO DAILY [facility] Last Admin: 03/23/19 09:27 Dose: 40 mg Rivaroxaban (Xarelto) 20 mg PO DAILY@0800 [facility] Last Admin: 03/23/19 08:00 Dose: 20 mg - Objective Vital Signs: Vital Signs Temperature 97.8 F 03/23/19 08:00 Pulse Rate 112 H 03/23/19 14:00 Respiratory Rate 20 03/23/19 14:00 Blood Pressure 118/93 03/23/19 14:00 O2 Sat by Pulse Oximetry (%) 88 L 03/23/19 11:35 Constitutional: Yes: No Distress HENT: Yes: Atraumatic Neck: Yes: Supple Cardiovascular: Yes: Regular Rate and Rhythm Respiratory: Yes: CTA Bilaterally Gastrointestinal: Yes: Normal Bowel Sounds Extremities: Yes: WNL Neurological: Yes: Alert, Oriented Labs: CBC, BMP 03/23/19 05:30 03/23/19 05:30 INR, PTT INR 2.20 (0.83-1.09) H 03/19/19 05:30 Problem List - Problems (1) Cor pulmonale Code(s): I27.81 - COR PULMONALE (CHRONIC) (2) Hypoxia Assessment/Plan: extubated stable Code(s): R09.02 - HYPOXEMIA (3) Pulmonary arterial hypertension Code(s): I27.21 - SECONDARY PULMONARY ARTERIAL HYPERTENSION (4) Respiratory distress Assessment/Plan: stable Code(s): R06.03 - ACUTE RESPIRATORY DISTRESS (5) Lung infiltrate Assessment/Plan: on iv abx Code(s): R91.8 - OTHER NONSPECIFIC ABNORMAL FINDING OF LUNG FIELD
[2019-03-23] MEDS: MONTELUKAST NA 10 MG TABLET PO SCH (21:35)
[2019-03-23] MEDS: CHLORHEXIDINE GLUCONATE 4% CLEANSER FOR DECOLONIZATION TP SCH (21:35)
[2019-03-24] MEDS: PIPERACILLIN/TAZOB 3.375 GM 3.375 GM in DEXTROSE 5%-WATER - 50 ML IVPB SCH ×3 (01:04→18:25)
[2019-03-24] MEDS: ALBUTEROL SO4 2.5/IPRATROPIUM 0.5 INH SOL 3 ML VIAL.NEB. NEB SCH ×4 (08:07→20:05)
[2019-03-24] MEDS ORDERED: PIPERACILLIN/TAZOBACTAM 3.375 GM VIAL IVPB ONE ×3 (09:00→21:04)
[2019-03-24] MEDS ORDERED: DEXTROSE 5%-WATER - 50 ML IVPB ONE ×3 (09:00→21:04)
[2019-03-24] MEDS: RIVAROXABAN 20 MG TABLET PO SCH (09:13)
[2019-03-24] MEDS: PANTOPRAZOLE 40 MG TABLET (FP) PO SCH (09:13)
[2019-03-24] MEDS: DIGOXIN 0.125 MG TABLET (FP) PO SCH (09:13)
[2019-03-24] MEDS: methylPREDNISolone NA SUCC 40 MG/1 ML VIAL IVPUSH SCH (09:13)
[2019-03-24 09:29] LABS: BILIRUBIN,TOTAL 1.7 mg/dL (0.2-1); CALCIUM 8.4 mg/dL (8.5-10.1); CREATININE 0.8 mg/dL (0.55-1.3); MAGNESIUM 2.6 mg/dL (1.8-2.4); PHOSPHOROUS 4.2 mg/dL (2.5-4.9); POTASSIUM 4.6 mmol/L (3.5-5.1); TOT PROT 5.7 g/dl (6.4-8.2)
[2019-03-24 09:43] LABS: BASO % 0.5 % (0-2.0); HEMATOCRIT 38.9 % (35.4-49); HEMOGLOBIN 11.9 GM/dL (11.7-16.9); LYMPH % 1.5 % (8-40); MCH 28.5 pg (25.7-33.7); MCHC 30.6 g/dl (32.0-35.9); MEAN CELL VOLUME 93.1 fl (80-96); MONO % 6.3 % (3.8-10.2); NEUT % 91.7 % (42.8-82.8); PLATELET COUNT 195 K/MM3 (134-434); RBC 4.18 M/mm3 (4.00-5.60); RDW 17.8 % (11.9-15.9)
--- NOTE | 2019-03-24 11:51 | PN ---
Teaching Attending Note Name of Resident: Billie Solis ATTENDING PHYSICIAN STATEMENT I saw and evaluated the patient. I reviewed the resident's note and discussed the case with the resident. I agree with the resident's findings and plan as documented. SUBJECTIVE: Patient seen and examined in the ICU. Remains tachypneic on NIPPV but reports that he feels a little better than yesterday. Clinically minimal objective improvement. (+) congested cough. No CP. Poor oral intake as he can only discontinue NIPPV for very limited periods. CXR: No gross change from previous Intake & Output 03/21/19 03/22/19 03/23/19 03/24/19 23:59 23:59 23:59 23:59 Intake Total 2085 1485 2192 996 Output Total 1025 1600 1350 200 Balance 1060 -115 842 796 Weight 115 lb 3.2 oz 117 lb 3.2 oz 114 lb 5 oz 102 lb 3.2 oz Last Vital Signs Temp Pulse Resp BP Pulse Ox 97.8 F 117 H 25 H 136/88 98 03/24/19 04:00 03/24/19 09:13 03/24/19 09:00 03/24/19 06:00 03/24/19 09:23 Active Medications Albuterol Sulfate (Ventolin 0.083% Nebulizer Soln -) 1 amp NEB Q4H PRN PRN Reason: SHORT OF BREATH/WHEEZING Albuterol/Ipratropium (Duoneb -) 1 amp NEB RQID [facility] Last Admin: 03/24/19 08:07 Dose: 1 amp Chlorhexidine Gluconate (Hibiclens For Decolonization -) 1 applic TP HS [facility] Last Admin: 03/23/19 21:35 Dose: 1 applic Digoxin (Lanoxin -) 0.125 mg PO DAILY [facility] Last Admin: 03/24/19 09:13 Dose: 0.125 mg Piperacillin Sod/Tazobactam (Sod 3.375 gm/ Dextrose) 50 mls @ 100 mls/hr IVPB Q8H-IV [facility]; Protocol Last Admin: 03/24/19 09:14 Dose: 100 mls/hr Methylprednisolone Sodium Succinate (Solu-Medrol -) 30 mg IVPUSH DAILY [facility] Last Admin: 03/24/19 09:13 Dose: 30 mg Montelukast Sodium (Singulair -) 10 mg PO HS [facility] Last Admin: 03/23/19 21:35 Dose: 10 mg Pantoprazole Sodium (Protonix -) 40 mg PO DAILY [facility] Last Admin: 03/24/19 09:13 Dose: 40 mg Rivaroxaban (Xarelto) 20 mg PO DAILY@0800 [facility] Last Admin: 03/24/19 09:13 Dose: 20 mg Gen: Awake and alert, tachypneic at rest on NIPPV support Heart: tachycardic, regular Lung: decreased breath sounds at the bases, few scattered rhonchi, no wheeze Abd: soft, nontender Ext: no edema Laboratory Results - last 24 hr 03/21/19 03/23/19 03/24/19 12:20 05:30 06:00 WBC 17.8 H Corrected WBC (auto) 14.35 RBC Hgb Hct MCV MCH MCHC RDW Plt Count MPV Absolute Neuts (auto) Neutrophils % Lymphocytes % Monocytes % Eosinophils % Basophils % Nucleated RBC % 24 H* D Sodium 150 H Potassium 4.6 Chloride 119 H Carbon Dioxide 22 Anion Gap 10 BUN 37 H Creatinine 0.8 Est GFR (CKD-EPI)AfAm 106.38 Est GFR (CKD-EPI)NonAf 91.79 Random Glucose 69 L Calcium 8.4 L Phosphorus 4.2 Magnesium 2.6 H Total Bilirubin 1.7 H AST 475 H ALT 804 H Alkaline Phosphatase 209 H Total Protein 5.7 L Albumin 2.0 L TB Test (QFT) Nil 0.03 TB Test (QFT) Mitogen 0.04 TB Test (QFT) Antigen 0.03 TB Test (QFT) Indeterminate TB Positive Criteria 03/24/19 07:00 WBC Corrected WBC (auto) RBC 4.18 Hgb 11.9 Hct 38.9 MCV 93.1 MCH 28.5 MCHC 30.6 L RDW 17.8 H Plt Count 195 MPV 8.0 Absolute Neuts (auto) 14.6 H Neutrophils % 91.7 H Lymphocytes % 1.5 L D Monocytes % 6.3 Eosinophils % 0.0 D Basophils % 0.5 Nucleated RBC % Sodium Potassium Chloride Carbon Dioxide Anion Gap BUN Creatinine Est GFR (CKD-EPI)AfAm Est GFR (CKD-EPI)NonAf Random Glucose Calcium Phosphorus Magnesium Total Bilirubin AST ALT Alkaline Phosphatase Total Protein Albumin TB Test (QFT) Nil TB Test (QFT) Mitogen TB Test (QFT) Antigen TB Test (QFT) TB Positive Criteria ASSESSMENT AND PLAN: Acute on Chronic Hypoxic and Hypercapneic Respiratory Failure Pneumonia Severe Sepsis resolving Lactic Acidosis LV Systolic Dysfunction Pulmonary Hypertension 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 I discussed this with the patient and he would like to continue NIPPV support for now. I suspect that he may eventually require intubation/mechanical ventilation. - ABX per ID - Aspiration precautions - Follow CXR - inhaled bronchodilators - Medrol - PO as tolerated - continue anticoagulation - continue ICU monitoring for tenuous respiratory status Dr Daugherty Critical care time spent in reviewing chart, evaluating patient and formulating plan 35 min
[2019-03-24 13:13] LABS: WHITE BLOOD COUNT 18.7 K/mm3 (4.0-10.0)
--- NOTE | 2019-03-24 15:50 | PN ---
Progress Note, Physician History of Present Illness: stable - Current Medication List Current Medications: Active Medications Albuterol Sulfate (Ventolin 0.083% Nebulizer Soln -) 1 amp NEB Q4H PRN PRN Reason: SHORT OF BREATH/WHEEZING Albuterol/Ipratropium (Duoneb -) 1 amp NEB RQID [facility] Last Admin: 03/24/19 11:52 Dose: 1 amp Chlorhexidine Gluconate (Hibiclens For Decolonization -) 1 applic TP HS [facility] Last Admin: 03/23/19 21:35 Dose: 1 applic Digoxin (Lanoxin -) 0.125 mg PO DAILY [facility] Last Admin: 03/24/19 09:13 Dose: 0.125 mg Piperacillin Sod/Tazobactam (Sod 3.375 gm/ Dextrose) 50 mls @ 100 mls/hr IVPB Q8H-IV [facility]; Protocol Last Admin: 03/24/19 09:14 Dose: 100 mls/hr Methylprednisolone Sodium Succinate (Solu-Medrol -) 30 mg IVPUSH DAILY [facility] Last Admin: 03/24/19 09:13 Dose: 30 mg Montelukast Sodium (Singulair -) 10 mg PO HS [facility] Last Admin: 03/23/19 21:35 Dose: 10 mg Pantoprazole Sodium (Protonix -) 40 mg PO DAILY [facility] Last Admin: 03/24/19 09:13 Dose: 40 mg Rivaroxaban (Xarelto) 20 mg PO DAILY@0800 [facility] Last Admin: 03/24/19 09:13 Dose: 20 mg - Objective Vital Signs: Vital Signs Temperature 97.8 F 03/24/19 04:00 Pulse Rate 117 H 03/24/19 09:13 Respiratory Rate 25 H 03/24/19 09:00 Blood Pressure 136/88 03/24/19 06:00 O2 Sat by Pulse Oximetry (%) 96 03/24/19 14:27 Constitutional: Yes: No Distress HENT: Yes: Atraumatic Neck: Yes: Supple Cardiovascular: Yes: Regular Rate and Rhythm Respiratory: Yes: Rhonchi, Wheezes Gastrointestinal: Yes: Normal Bowel Sounds Extremities: Yes: WNL Edema: No Peripheral Pulses WNL: Yes Neurological: Yes: Alert, Oriented Labs: CBC, BMP 03/24/19 07:00 03/24/19 06:00 INR, PTT INR 2.20 (0.83-1.09) H 03/19/19 05:30 Problem List - Problems (1) Cor pulmonale Assessment/Plan: stable Code(s): I27.81 - COR PULMONALE (CHRONIC) (2) Hypoxia Assessment/Plan: extubated stable on bipap Code(s): R09.02 - HYPOXEMIA (3) Pulmonary arterial hypertension Code(s): I27.21 - SECONDARY PULMONARY ARTERIAL HYPERTENSION (4) Respiratory distress Assessment/Plan: stable on bipap Code(s): R06.03 - ACUTE RESPIRATORY DISTRESS (5) Lung infiltrate Assessment/Plan: on iv abx id on board Code(s): R91.8 - OTHER NONSPECIFIC ABNORMAL FINDING OF LUNG FIELD (6) Sepsis Assessment/Plan: on abx cxs noted Code(s): A41.9 - SEPSIS, UNSPECIFIED ORGANISM Assessment/Plan ASSESSMENT AND PLAN: Respiratory Failure Pneumonia Severe Sepsis Lactic Acidosis Pulmonary HTN h/o PE h/o of aspergellosis h/o of lobectomy plan iv empiric abx iv steroids sputum cx nutrition pt is intubated dvt ppx icu cc time 40 min
--- NOTE | 2019-03-24 16:54 | PN ---
Physical Exam: SUBJECTIVE: Patient seen and examined at bedside this morning. Patient reports feeling better on bipap. Was placed on nonrebreather mask during the day and was able to eat. OBJECTIVE: Vital Signs Temperature 98.3 F 03/24/19 12:00 Pulse Rate 116 H 03/24/19 16:00 Respiratory Rate 23 H 03/24/19 16:00 Blood Pressure 122/80 03/24/19 16:00 O2 Sat by Pulse Oximetry (%) 96 03/24/19 14:27 GENERAL: The patient is awake, alert, and oriented, on NIPPV. HEAD: Normal with no signs of trauma. EYES: PERRLA,EOMI, sclera anicteric, conjunctiva clear. ENT: oropharynx clear without exudates, moist mucous membranes. LUNGS: Decreased breath sounds on the Right>left HEART: Tachycardic, S1, S2 without murmur, rub or gallop. ABDOMEN: Soft, nontender, nondistended, normoactive bowel sounds. EXTREMITIES: 2+ pulses, warm, well-perfused, no edema. SKIN: Warm, dry, normal turgor, no rashes or lesions noted Laboratory Results - last 24 hr 03/24/19 03/24/19 06:00 07:00 WBC 18.7 H Corrected WBC (auto) 16.40 RBC 4.18 Hgb 11.9 Hct 38.9 MCV 93.1 MCH 28.5 MCHC 30.6 L RDW 17.8 H Plt Count 195 MPV 8.0 Absolute Neuts (auto) 14.6 H Total Counted 100 Neutrophils % 91.7 H Neutrophils % (Manual) 76.0 Band Neutrophils % 5.0 Lymphocytes % 1.5 L D Lymphocytes % (Manual) 13.0 D Monocytes % 6.3 Monocytes % (Manual) 6 Eosinophils % 0.0 D Basophils % 0.5 Nucleated RBC % 14 H* Sodium 150 H Potassium 4.6 Chloride 119 H Carbon Dioxide 22 Anion Gap 10 BUN 37 H Creatinine 0.8 Est GFR (CKD-EPI)AfAm 106.38 Est GFR (CKD-EPI)NonAf 91.79 Random Glucose 69 L Calcium 8.4 L Phosphorus 4.2 Magnesium 2.6 H Total Bilirubin 1.7 H AST 475 H ALT 804 H Alkaline Phosphatase 209 H Total Protein 5.7 L Albumin 2.0 L Active Medications Generic Name Dose Route Start Last Admin Trade Name Freq PRN Reason Stop Dose Admin Albuterol Sulfate 1 amp 03/22/19 10:33 Ventolin 0.083% Nebulizer Soln - NEB Q4H PRN SHORT OF BREATH/WHEEZING Albuterol/Ipratropium 1 amp 03/15/19 20:00 03/24/19 16:13 Duoneb - NEB 1 amp RQID [facility] Administration Chlorhexidine Gluconate 1 applic 03/15/19 22:00 03/23/19 21:35 Hibiclens For Decolonization - TP 1 applic HS [facility] Administration Digoxin 0.125 mg 03/16/19 10:00 03/24/19 09:13 Lanoxin - PO 0.125 mg DAILY [facility] Administration Piperacillin Sod/Tazobactam 50 mls @ 100 mls/hr 03/16/19 18:00 03/24/19 09:14 Sod 3.375 gm/ Dextrose IVPB 100 mls/hr Q8H-IV [facility] Administration Protocol Methylprednisolone Sodium Succinate 30 mg 03/23/19 10:00 03/24/19 09:13 Solu-Medrol - IVPUSH 30 mg DAILY [facility] Administration Montelukast Sodium 10 mg 03/16/19 22:00 03/23/19 21:35 Singulair - PO 10 mg HS [facility] Administration Pantoprazole Sodium 40 mg 03/16/19 10:00 03/24/19 09:13 Protonix - PO 40 mg DAILY [facility] Administration Rivaroxaban 20 mg 03/16/19 08:00 03/24/19 09:13 Xarelto PO 20 mg DAILY@0800 [facility] Administration ASSESSMENT/PLAN: Patient is a 68 yo M h/o PAH s/p R heart cath, on home oxygen 2.5 LPM, multiple PE (most recent one 3 years ago) s/p clot retrieval currently on Xarelto, prostate CA, h/o pulmonary Aspergillus s/p RLL lobectomy in 2006 and reactive airway disease. Admitted to the ICU for acute on chronic hypercapnic respiratory failure. #Neuro -Alert and oriented, off sedation #Cardiovascular: 1. LV systolic dysfunction 2. Pulmonary HTN -Cardiology (Dr. Herndon) consulted. Recommendations appreciated. -Tachycardic with MAPs maintained above 65. -Continue Digoxin per home dose. -ECHO revealed severe LV dysfunction. Will closely monitor fluid status. Noted only mild pulmonary hypertension. 3. Sinus tachycardia vs atrial tachycardia -EKG/tele showing rapid regular rhythm -As per cardiology, may be due to infection, hypoxia and poor pulmonary status #Pulmo 1. Acute on Chronic Hypoxic and Hypercapneic Respiratory Failure -on NRB, maintaining SpO2 >90% -NIPPV PRN -Low threshold for intubation and mechanical ventilation -Outpatient pneumonia diagnosis s/p Augmentin course. Infiltrates noted on CXR. -Continue antibiotics -Duonebs RQID, Singulair. -IV Solu-medrol to 30mg daily -Aspiration precautions -CXR daily 2. Hx of PE. -Continue Xarelto 20mg daily -No evidence of massive PE on CTA. 3. Hx of RIGHT lower lobe lobectomy insetting of Aspergillosis infection. #Gastrointestinal: -Continue home Pantoprazole. -on soft diet with nutritional supplement -Speech and Swallow evaluation #Genitourinary: -Hx of prostate cancer -monitor UO #ID 1. Severe sepsis likely 2/2 PNA -ID (Dr. Cody) consulted. Recommendations appreciated. -Continue Zosyn 3.375gm q8h -sputum culture - Pseudomonas, Staph latex coag positive, yeast like organism -Sputum AFB culture pending -Blood cultures negative #FEN -Not on any standing fluids -Routine bmp monitoring -Soft diet with nutritional supplement #Prophylaxis -DVT: Xarelto 20mg daily -GI: Pantoprazole 40mg daily #Dispo: -full code -ICU monitoring Visit type - Emergency Visit Emergency Visit: Yes ED Registration Date: 03/15/19 Care time: The patient presented to the Emergency Department on the above date and was hospitalized for further evaluation of their emergent condition. - New Patient This patient is new to me today: No - Critical Care Critical Care patient: Yes Total Critical Care Time (in minutes): 37 Critical Care Statement: The care of this patient involved high complexity decision making to prevent further life threatening deterioration of the patient 's condition and/or to evaluate & treat vital organ system(s) failure or risk of failure.
[2019-03-24] MEDS: CHLORHEXIDINE GLUCONATE 4% CLEANSER FOR DECOLONIZATION TP SCH (21:16)
[2019-03-24] MEDS: MONTELUKAST NA 10 MG TABLET PO SCH (21:16)
[2019-03-24] MEDS: METOPROLOL TARTRATE 25 MG TABLET (FP) PO SCH (21:16)
[2019-03-24] MEDS ORDERED: METOPROLOL TARTRATE 25 MG TABLET (FP) PO SCH (22:00)
[2019-03-25] MEDS: PIPERACILLIN/TAZOB 3.375 GM 3.375 GM in DEXTROSE 5%-WATER - 50 ML IVPB SCH ×3 (01:36→17:50)
[2019-03-25] MEDS: ALBUTEROL SO4 2.5/IPRATROPIUM 0.5 INH SOL 3 ML VIAL.NEB. NEB SCH ×2 (08:31→11:26)
[2019-03-25] MEDS: RIVAROXABAN 20 MG TABLET PO SCH (09:15)
[2019-03-25] MEDS ORDERED: PIPERACILLIN/TAZOBACTAM 3.375 GM VIAL IVPB ONE ×2 (10:08→17:32)
[2019-03-25] MEDS ORDERED: DEXTROSE 5%-WATER - 50 ML IVPB ONE ×2 (10:08→17:32)
[2019-03-25] MEDS: DIGOXIN 0.125 MG TABLET (FP) PO SCH (10:22)
[2019-03-25] MEDS: methylPREDNISolone NA SUCC 40 MG/1 ML VIAL IVPUSH SCH (10:22)
[2019-03-25] MEDS: PANTOPRAZOLE 40 MG TABLET (FP) PO SCH (10:22)
[2019-03-25] MEDS: METOPROLOL TARTRATE 25 MG TABLET (FP) PO SCH ×2 (10:22→21:17)
--- NOTE | 2019-03-25 10:54 | PN ---
Teaching Attending Note Name of Resident: Paul Navarro ATTENDING PHYSICIAN STATEMENT I saw and evaluated the patient. I reviewed the resident's note and discussed the case with the resident. I agree with the resident's findings and plan as documented. SUBJECTIVE: Pt seen and examined in the ICU. Somnolent but arousable on BiPAP. Saturating well on 50% FiO2. OBJECTIVE: Vital Signs Period Temp Pulse Resp BP Sys/Wright Pulse Ox Last 24 Hr 97.4 F-98.3 F 116-119 20-24 113-150/80-100 95-100 Intake & Output 03/22/19 03/23/19 03/24/19 03/25/19 23:59 23:59 23:59 23:59 Intake Total 1485 2192 1046 50 Output Total 1600 1350 650 Balance -115 842 396 50 Weight 53.161 kg 51.851 kg 46.357 kg 46.357 kg Gen: somnolent but arousable on BiPAP Heart: tachycardic, regular, +systolic murmur Lung: scattered rhonchi, distant breath sounds Abd: soft, nontender Ext: no edema CBC, BMP 03/24/19 07:00 03/24/19 06:00 Active Medications Albuterol Sulfate (Ventolin 0.083% Nebulizer Soln -) 1 amp NEB Q4H PRN PRN Reason: SHORT OF BREATH/WHEEZING Albuterol/Ipratropium (Duoneb -) 1 amp NEB RQID [facility] Last Admin: 03/25/19 08:31 Dose: 1 amp Chlorhexidine Gluconate (Hibiclens For Decolonization -) 1 applic TP HS [facility] Last Admin: 03/24/19 21:16 Dose: 1 applic Digoxin (Lanoxin -) 0.125 mg PO DAILY [facility] Last Admin: 03/25/19 10:22 Dose: 0.125 mg Piperacillin Sod/Tazobactam (Sod 3.375 gm/ Dextrose) 50 mls @ 100 mls/hr IVPB Q8H-IV [facility]; Protocol Last Admin: 03/25/19 10:22 Dose: 100 mls/hr Methylprednisolone Sodium Succinate (Solu-Medrol -) 30 mg IVPUSH DAILY [facility] Last Admin: 03/25/19 10:22 Dose: 30 mg Metoprolol Tartrate (Lopressor -) 25 mg PO BID [facility] Last Admin: 03/25/19 10:22 Dose: 25 mg Montelukast Sodium (Singulair -) 10 mg PO HS [facility] Last Admin: 03/24/19 21:16 Dose: 10 mg Pantoprazole Sodium (Protonix -) 40 mg PO DAILY [facility] Last Admin: 03/25/19 10:22 Dose: 40 mg Rivaroxaban (Xarelto) 20 mg PO DAILY@0800 [facility] Last Admin: 03/25/19 09:15 Dose: 20 mg ASSESSMENT AND PLAN: Acute on Chronic Hypoxic and Hypercapneic Respiratory Failure Pneumonia Severe Sepsis resolving Lactic Acidosis LV Systolic Dysfunction Pulmonary Hypertension 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
--- NOTE | 2019-03-25 12:56 | PN ---
Progress Note, Physician History of Present Illness: stable - Current Medication List Current Medications: Active Medications Albuterol Sulfate (Ventolin 0.083% Nebulizer Soln -) 1 amp NEB Q4H PRN PRN Reason: SHORT OF BREATH/WHEEZING Albuterol/Ipratropium (Duoneb -) 1 amp NEB RQID [facility] Last Admin: 03/25/19 11:26 Dose: 1 amp Chlorhexidine Gluconate (Hibiclens For Decolonization -) 1 applic TP HS [facility] Last Admin: 03/24/19 21:16 Dose: 1 applic Digoxin (Lanoxin -) 0.125 mg PO DAILY [facility] Last Admin: 03/25/19 10:22 Dose: 0.125 mg Piperacillin Sod/Tazobactam (Sod 3.375 gm/ Dextrose) 50 mls @ 100 mls/hr IVPB Q8H-IV [facility]; Protocol Last Admin: 03/25/19 10:22 Dose: 100 mls/hr Methylprednisolone Sodium Succinate (Solu-Medrol -) 30 mg IVPUSH DAILY [facility] Last Admin: 03/25/19 10:22 Dose: 30 mg Metoprolol Tartrate (Lopressor -) 25 mg PO BID [facility] Last Admin: 03/25/19 10:22 Dose: 25 mg Montelukast Sodium (Singulair -) 10 mg PO HS [facility] Last Admin: 03/24/19 21:16 Dose: 10 mg Pantoprazole Sodium (Protonix -) 40 mg PO DAILY [facility] Last Admin: 03/25/19 10:22 Dose: 40 mg Rivaroxaban (Xarelto) 20 mg PO DAILY@0800 [facility] Last Admin: 03/25/19 09:15 Dose: 20 mg - Objective Vital Signs: Vital Signs Temperature 97.4 F L 03/25/19 10:00 Pulse Rate 118 H 03/25/19 12:00 Respiratory Rate 16 03/25/19 12:00 Blood Pressure 117/93 03/25/19 12:00 O2 Sat by Pulse Oximetry (%) 98 03/25/19 12:46 Constitutional: Yes: No Distress HENT: Yes: Atraumatic Neck: Yes: Supple Cardiovascular: Yes: Regular Rate and Rhythm Respiratory: Yes: Rhonchi, Wheezes Gastrointestinal: Yes: Normal Bowel Sounds Extremities: Yes: WNL Edema: No Peripheral Pulses WNL: Yes Neurological: Yes: Alert, Oriented Labs: CBC, BMP 05/10/19 07:00 03/24/19 06:00 INR, PTT INR 2.20 (0.83-1.09) H 03/19/19 05:30 Problem List - Problems (1) Cor pulmonale Assessment/Plan: stable Code(s): I27.81 - COR PULMONALE (CHRONIC) (2) Hypoxia Assessment/Plan: extubated stable on bipap Code(s): R09.02 - HYPOXEMIA (3) Pulmonary arterial hypertension Code(s): I27.21 - SECONDARY PULMONARY ARTERIAL HYPERTENSION (4) Respiratory distress Assessment/Plan: stable on bipap Code(s): R06.03 - ACUTE RESPIRATORY DISTRESS (5) Lung infiltrate Assessment/Plan: on iv abx id on board Code(s): R91.8 - OTHER NONSPECIFIC ABNORMAL FINDING OF LUNG FIELD Assessment/Plan ASSESSMENT AND PLAN: Respiratory Failure Pneumonia Severe Sepsis Lactic Acidosis Pulmonary HTN h/o PE h/o of aspergellosis h/o of lobectomy plan iv empiric abx iv steroids sputum cx nutrition pt is intubated dvt ppx icu cc time 40 min
[2019-03-25 13:15] LABS: BASO % 0.1 % (0-2.0); HEMATOCRIT 41.1 % (35.4-49); HEMOGLOBIN 12.5 GM/dL (11.7-16.9); LYMPH % 0.5 % (8-40); MCH 28.5 pg (25.7-33.7); MCHC 30.4 g/dl (32.0-35.9); MEAN CELL VOLUME 93.8 fl (80-96); MEAN PLT VOLUME 8.2 fl (7.5-11.1); MONO % 0.2 % (3.8-10.2); NEUT % 99.2 % (42.8-82.8); PLATELET COUNT 162 K/MM3 (134-434); RBC 4.38 M/mm3 (4.00-5.60); RDW 18.1 % (11.9-15.9)
[2019-03-25 13:32] LABS: WHITE BLOOD COUNT 19.5 K/mm3 (4.0-10.0)
[2019-03-25 14:21] LABS: CORRECTED WBC 17.26 K/mm3
[2019-03-25 14:22] LABS: MACROCYTOSIS 1+
[2019-03-25 14:37] LABS: MAGNESIUM 2.6 mg/dL (1.8-2.4)
[2019-03-25 14:55] LABS: BILIRUBIN,TOTAL 1.6 mg/dL (0.2-1); CALCIUM 8.7 mg/dL (8.5-10.1); CREATININE 0.9 mg/dL (0.55-1.3); POTASSIUM 4.5 mmol/L (3.5-5.1); TOT PROT 5.8 g/dl (6.4-8.2)
--- NOTE | 2019-03-25 14:59 | PN ---
Progress Note, Physician History of Present Illness: seen and examined at bedside. saturating well on bilevel but would desat quickly once off it. No other acute event overnight - Current Medication List Current Medications: Active Medications Albuterol Sulfate (Ventolin 0.083% Nebulizer Soln -) 1 amp NEB Q4H PRN PRN Reason: SHORT OF BREATH/WHEEZING Albuterol/Ipratropium (Duoneb -) 1 amp NEB RQID [facility] Last Admin: 03/25/19 11:26 Dose: 1 amp Chlorhexidine Gluconate (Hibiclens For Decolonization -) 1 applic TP HS [facility] Last Admin: 03/24/19 21:16 Dose: 1 applic Digoxin (Lanoxin -) 0.125 mg PO DAILY [facility] Last Admin: 03/25/19 10:22 Dose: 0.125 mg Piperacillin Sod/Tazobactam (Sod 3.375 gm/ Dextrose) 50 mls @ 100 mls/hr IVPB Q8H-IV [facility]; Protocol Last Admin: 03/25/19 10:22 Dose: 100 mls/hr Methylprednisolone Sodium Succinate (Solu-Medrol -) 30 mg IVPUSH DAILY [facility] Last Admin: 03/25/19 10:22 Dose: 30 mg Metoprolol Tartrate (Lopressor -) 25 mg PO BID [facility] Last Admin: 03/25/19 10:22 Dose: 25 mg Montelukast Sodium (Singulair -) 10 mg PO HS [facility] Last Admin: 03/24/19 21:16 Dose: 10 mg Pantoprazole Sodium (Protonix -) 40 mg PO DAILY [facility] Last Admin: 03/25/19 10:22 Dose: 40 mg Rivaroxaban (Xarelto) 20 mg PO DAILY@0800 [facility] Last Admin: 03/25/19 09:15 Dose: 20 mg - Objective Vital Signs: Vital Signs Temperature 97.4 F L 03/25/19 14:00 Pulse Rate 87 03/25/19 14:00 Respiratory Rate 25 H 03/25/19 14:00 Blood Pressure 116/92 03/25/19 14:00 O2 Sat by Pulse Oximetry (%) 98 03/25/19 12:46 Constitutional: Yes: Mild Distress Cardiovascular: Yes: Tachycardia, S1, S2 Respiratory: Yes: Diminished, Rhonchi Gastrointestinal: Yes: Normal Bowel Sounds, Soft Neurological: Yes: Alert, Oriented Labs: CBC, BMP 03/25/19 13:00 INR, PTT INR 2.20 (0.83-1.09) H 03/19/19 05:30 Impression/Plan Impression/Plan: 68 yo M h/o PAH s/p R heart cath, on home oxygen 2.5 LPM, multiple PE (most recent one 3 years ago) s/p clot retrieval currently on Xarelto, prostate CA, h/ o pulmonary Aspergillus s/p RLL lobectomy in 2006 and reactive airway disease. Admitted to the ICU for acute on chronic hypercapnic respiratory failure. Pulm: Acute on Chronic Hypoxic and Hypercapneic Respiratory Failure; PE - cont. bipap - cont. conversation with family regarding trach - Low threshold for intubation and mechanical ventilation - d/c standing duoned due to tachycardia, cont. the PRN order and Singulair - cont. IV Solu-medrol 30mg daily - Aspiration precautions -Continue Xarelto 20mg daily -No evidence of massive PE on CTA. ID: Severe sepsis likely 2/2 PNA -Continue Zosyn 3.375gm q8h -sputum culture - Pseudomonas, Staph latex coag positive, yeast like organism -Sputum AFB culture pending -Blood cultures negative Cardiovascular:LV systolic dysfunction; Pulmonary HTN; sinus tach -Continue Digoxin -ECHO revealed severe LV dysfunction. Will closely monitor fluid status. Noted only mild pulmonary hypertension. -As per cardiology, sinus tach may be due to infection, hypoxia and poor pulmonary status Gastrointestinal: -Continue home Pantoprazole. -on soft diet with nutritional supplement #Genitourinary: -Hx of prostate cancer -monitor UO Neuro -Alert and oriented, off sedation FEN -Not on any standing fluids -Routine bmp monitoring -Soft diet with nutritional supplement Prophylaxis DVT: Xarelto 20mg daily GI: Pantoprazole 40mg daily Dispo full code ICU monitoring cont trach conversation with his daughter Paul Navarro MD ICU resident Visit type - Emergency Visit Emergency Visit: No - New Patient This patient is new to me today: No - Critical Care Critical Care patient: Yes Total Critical Care Time (in minutes): 45 Critical Care Statement: The care of this patient involved high complexity decision making to prevent further life threatening deterioration of the patient 's condition and/or to evaluate & treat vital organ system(s) failure or risk of failure.
[2019-03-25] MEDS ORDERED: VANCOMYCIN 1 GRAM (PRE-DOCKED) 1,000 MG/250 ML BAG IVPB ONE (18:05)
--- NOTE | 2019-03-25 18:06 | PN ---
Progress Note, Physician History of Present Illness: Pt seen and examine, chart reviewed. He is currently weak but arousable, afebrile. On BIPAP with occasional distress. - Current Medication List Current Medications: Active Medications Albuterol Sulfate (Ventolin 0.083% Nebulizer Soln -) 1 amp NEB Q4H PRN PRN Reason: SHORT OF BREATH/WHEEZING Chlorhexidine Gluconate (Hibiclens For Decolonization -) 1 applic TP HS [facility] Last Admin: 03/24/19 21:16 Dose: 1 applic Digoxin (Lanoxin -) 0.125 mg PO DAILY [facility] Last Admin: 03/25/19 10:22 Dose: 0.125 mg Piperacillin Sod/Tazobactam (Sod 3.375 gm/ Dextrose) 50 mls @ 100 mls/hr IVPB Q8H-IV [facility]; Protocol Last Admin: 03/25/19 17:50 Dose: 100 mls/hr Methylprednisolone Sodium Succinate (Solu-Medrol -) 30 mg IVPUSH DAILY [facility] Last Admin: 03/25/19 10:22 Dose: 30 mg Metoprolol Tartrate (Lopressor -) 25 mg PO BID [facility] Last Admin: 03/25/19 10:22 Dose: 25 mg Montelukast Sodium (Singulair -) 10 mg PO HS [facility] Last Admin: 03/24/19 21:16 Dose: 10 mg Pantoprazole Sodium (Protonix -) 40 mg PO DAILY [facility] Last Admin: 03/25/19 10:22 Dose: 40 mg Rivaroxaban (Xarelto) 20 mg PO DAILY@0800 [facility] Last Admin: 03/25/19 09:15 Dose: 20 mg - Objective Vital Signs: Vital Signs Temperature 97.4 F L 03/25/19 14:00 Pulse Rate 87 03/25/19 14:00 Respiratory Rate 25 H 03/25/19 14:00 Blood Pressure 116/92 03/25/19 14:00 O2 Sat by Pulse Oximetry (%) 93 L 03/25/19 17:54 Constitutional: Yes: Calm Eyes: Yes: Conjunctiva Clear Neck: Yes: Supple Cardiovascular: Yes: Pulse Irregular Respiratory: Yes: On BiPap, Rhonchi Gastrointestinal: Yes: Normal Bowel Sounds, Soft Integumentary: Yes: WNL Neurological: Yes: Other (more alert) Labs: CBC, BMP 03/25/19 13:00 03/25/19 13:00 INR, PTT INR 2.20 (0.83-1.09) H 03/19/19 05:30 Microbiology 03/21/19 18:45 Sputum - Oropharynx Suctioned Sputum AFB Smear Concentration - Final 03/21/19 18:45 Sputum - Oropharynx Suctioned Sputum Direct Acid Fast Bacilli Smear - Final 03/21/19 18:45 Sputum - Oropharynx Suctioned Sputum Mycobacterial Culture - Preliminary 03/18/19 09:30 Sputum - Endotrachea Suction/Ventilator Yeast/Fungus Identification - Preliminary 03/18/19 09:30 Sputum - Endotrachea Suction/Ventilator Gram Stain - Final 03/18/19 09:30 Sputum - Endotrachea Suction/Ventilator Sputum Culture - Final Pseudomonas Aeruginosa Staphylococcus Aureus Yeast Like Organism 03/15/19 19:02 Blood - Peripheral Venous Blood Culture - Final NO GROWTH AFTER 5 DAYS INCUBATION 03/15/19 19:02 Blood - Peripheral Venous Blood Culture - Final NO GROWTH AFTER 5 DAYS INCUBATION - ....Imaging Cat Scan: Report Reviewed Problem List - Problems (1) Hypoxia Code(s): R09.02 - HYPOXEMIA (2) Lung infiltrate Code(s): R91.8 - OTHER NONSPECIFIC ABNORMAL FINDING OF LUNG FIELD (3) Pulmonary arterial hypertension Code(s): I27.21 - SECONDARY PULMONARY ARTERIAL HYPERTENSION (4) Respiratory distress Code(s): R06.03 - ACUTE RESPIRATORY DISTRESS (5) Tachycardia Code(s): R00.0 - TACHYCARDIA, UNSPECIFIED Assessment/Plan Acute hypoxemic respiratory failure PNA Sepsis Leukocytosis Hx PE -- upward trend in wbc, pt on steroids -- repeat blood cultures -- continue Zosyn, will give one dose of Vancomycin empirically -- All cultures/imaging results reviewed -- continue monitor wbc, vitals cc: 40 min
[2019-03-25] MEDS: MONTELUKAST NA 10 MG TABLET PO SCH (21:17)
[2019-03-25] MEDS: CHLORHEXIDINE GLUCONATE 4% CLEANSER FOR DECOLONIZATION TP SCH (21:18)
[2019-03-26] MEDS ORDERED: DEXTROSE 5%-WATER - 50 ML IVPB ONE ×3 (01:37→17:27)
[2019-03-26] MEDS ORDERED: PIPERACILLIN/TAZOBACTAM 3.375 GM VIAL IVPB ONE ×3 (01:37→17:27)
[2019-03-26] MEDS: PIPERACILLIN/TAZOB 3.375 GM 3.375 GM in DEXTROSE 5%-WATER - 50 ML IVPB SCH ×3 (01:56→17:36)
[2019-03-26 06:49] LABS: EOS % 0.1 % (0-4.5); HEMATOCRIT 40.2 % (35.4-49); HEMOGLOBIN 12.5 GM/dL (11.7-16.9); MCH 28.9 pg (25.7-33.7); MEAN CELL VOLUME 93.3 fl (80-96); MEAN PLT VOLUME 8.1 fl (7.5-11.1); MONO % 4.7 % (3.8-10.2); NEUT % 93.2 % (42.8-82.8); PLATELET COUNT 153 K/MM3 (134-434); RBC 4.31 M/mm3 (4.00-5.60); RDW 18.4 % (11.9-15.9); WHITE BLOOD COUNT 16.2 K/mm3 (4.0-10.0)
[2019-03-26 07:19] LABS: BILIRUBIN,TOTAL 1.4 mg/dL (0.2-1); CALCIUM 8.6 mg/dL (8.5-10.1); CREATININE 0.8 mg/dL (0.55-1.3); MAGNESIUM 2.3 mg/dL (1.8-2.4); POTASSIUM 4.4 mmol/L (3.5-5.1); TOT PROT 5.7 g/dl (6.4-8.2)
[2019-03-26] MEDS: RIVAROXABAN 20 MG TABLET PO SCH (09:00)
[2019-03-26] MEDS: PANTOPRAZOLE 40 MG TABLET (FP) PO SCH (10:00)
[2019-03-26] MEDS: METOPROLOL TARTRATE 25 MG TABLET (FP) PO SCH ×2 (10:00→22:17)
[2019-03-26] MEDS: DIGOXIN 0.125 MG TABLET (FP) PO SCH (10:00)
[2019-03-26] MEDS: methylPREDNISolone NA SUCC 40 MG/1 ML VIAL IVPUSH SCH (10:00)
--- NOTE | 2019-03-26 10:32 | PN ---
Teaching Attending Note Name of Resident: Kade Bennett ATTENDING PHYSICIAN STATEMENT I saw and evaluated the patient. I reviewed the resident's note and discussed the case with the resident. I agree with the resident's findings and plan as documented. SUBJECTIVE: Pt seen and examined in the ICU. On/off BiPAP. States breathing slightly improved. No significant cough. No fevers recorded. OBJECTIVE: Vital Signs Period Temp Pulse Resp BP Sys/Wright Pulse Ox Last 24 Hr 97.4 F-97.9 F 72-118 15-25 116-150/86-104 91-100 Intake & Output 03/23/19 03/24/19 03/25/19 03/26/19 23:59 23:59 23:59 23:59 Intake Total 2192 1046 450 250 Output Total 1350 650 650 Balance 842 396 -200 250 Weight 51.851 kg 46.357 kg 46.357 kg 43.091 kg Gen: tachypneic with speaking Heart: RRR, +holosystolic murmur Lung: distant breath sounds Abd: soft, nontender Ext: no edema CBC, BMP 03/26/19 05:30 03/26/19 05:30 Active Medications Albuterol Sulfate (Ventolin 0.083% Nebulizer Soln -) 1 amp NEB Q4H PRN PRN Reason: SHORT OF BREATH/WHEEZING Chlorhexidine Gluconate (Hibiclens For Decolonization -) 1 applic TP HS [facility] Last Admin: 03/25/19 21:18 Dose: 1 applic Digoxin (Lanoxin -) 0.125 mg PO DAILY [facility] Last Admin: 03/25/19 10:22 Dose: 0.125 mg Piperacillin Sod/Tazobactam (Sod 3.375 gm/ Dextrose) 50 mls @ 100 mls/hr IVPB Q8H-IV [facility]; Protocol Last Admin: 03/26/19 01:56 Dose: 100 mls/hr Methylprednisolone Sodium Succinate (Solu-Medrol -) 30 mg IVPUSH DAILY [facility] Last Admin: 03/25/19 10:22 Dose: 30 mg Metoprolol Tartrate (Lopressor -) 25 mg PO BID [facility] Last Admin: 03/25/19 21:17 Dose: 25 mg Montelukast Sodium (Singulair -) 10 mg PO HS [facility] Last Admin: 03/25/19 21:17 Dose: 10 mg Pantoprazole Sodium (Protonix -) 40 mg PO DAILY [facility] Last Admin: 03/25/19 10:22 Dose: 40 mg Rivaroxaban (Xarelto) 20 mg PO DAILY@0800 [facility] Last Admin: 03/25/19 09:15 Dose: 20 mg ASSESSMENT AND PLAN: Acute on Chronic Hypoxic and Hypercapneic Respiratory Failure Pneumonia Severe Sepsis resolving Lactic Acidosis LV Systolic Dysfunction Pulmonary Hypertension 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
--- NOTE | 2019-03-26 11:27 | PN ---
Physical Exam: SUBJECTIVE: Patient seen and examined at bedside. Patient feels well today and states that breathing improved. OBJECTIVE: Vital Signs Period Temp Pulse Resp BP Sys/Wright Pulse Ox Last 24 Hr 97.4 F-97.9 F 72-118 15-25 116-150/86-106 91-99 GENERAL: The patient is awake, alert, and fully oriented, in no acute distress. HEAD: Normal with no signs of trauma. NECK: Trachea midline, full range of motion, supple. LUNGS: Breath sounds equal, mild wheezes bilaterally, patient using accessory muscles when off NIPPV; improved while on NIPPV HEART: Regular rate and rhythm, S1, S2 without murmur, rub or gallop. ABDOMEN: Soft, nontender, nondistended, normoactive bowel sounds, no guarding, no rebound, no hepatosplenomegaly, no masses. EXTREMITIES: 2+ pulses, warm, well-perfused, no edema. NEUROLOGICAL: Cranial nerves II through X grossly intact. Normal speech, gait not observed. SKIN: Warm, dry, normal turgor, no rashes or lesions noted Laboratory Results - last 24 hr 03/25/19 03/25/19 03/26/19 13:00 13:00 05:30 WBC 19.5 H 16.2 H Corrected WBC (auto) 17.26 RBC 4.38 4.31 Hgb 12.5 12.5 Hct 41.1 40.2 MCV 93.8 93.3 MCH 28.5 28.9 MCHC 30.4 L 31.0 L RDW 18.1 H 18.4 H Plt Count 162 153 MPV 8.2 8.1 Absolute Neuts (auto) 17.8 H 15.1 H Total Counted 100 Neutrophils % 99.2 H 93.2 H Neutrophils % (Manual) 98.0 H Band Neutrophils % 0.0 Lymphocytes % 0.5 L 1.0 L D Lymphocytes % (Manual) 1.0 L D Monocytes % 0.2 L D 4.7 D Monocytes % (Manual) 1 L D Eosinophils % 0.0 0.1 D Basophils % 0.1 1.0 D Nucleated RBC % 13 H* 4 H Polychromasia 1+ Macrocytosis 1+ Sodium 156 H Potassium 4.5 Chloride 121 H Carbon Dioxide 29 Anion Gap 6 L BUN 32 H Creatinine 0.9 Est GFR (CKD-EPI)AfAm 101.36 Est GFR (CKD-EPI)NonAf 87.45 Random Glucose 111 H Calcium 8.7 Magnesium 2.6 H Total Bilirubin 1.6 H AST 224 H ALT 694 H Alkaline Phosphatase 237 H Total Protein 5.8 L Albumin 2.0 L 03/26/19 05:30 WBC Corrected WBC (auto) RBC Hgb Hct MCV MCH MCHC RDW Plt Count MPV Absolute Neuts (auto) Total Counted Neutrophils % Neutrophils % (Manual) Band Neutrophils % Lymphocytes % Lymphocytes % (Manual) Monocytes % Monocytes % (Manual) Eosinophils % Basophils % Nucleated RBC % Polychromasia Macrocytosis Sodium 155 H Potassium 4.4 Chloride 119 H Carbon Dioxide 33 H Anion Gap 3 L BUN 28 H Creatinine 0.8 Est GFR (CKD-EPI)AfAm 106.38 Est GFR (CKD-EPI)NonAf 91.79 Random Glucose 96 Calcium 8.6 Magnesium 2.3 Total Bilirubin 1.4 H AST 185 H ALT 639 H Alkaline Phosphatase 235 H Total Protein 5.7 L Albumin 2.0 L Active Medications Generic Name Dose Route Start Last Admin Trade Name Freq PRN Reason Stop Dose Admin Albuterol Sulfate 1 amp 03/22/19 10:33 Ventolin 0.083% Nebulizer Soln - NEB Q4H PRN SHORT OF BREATH/WHEEZING Chlorhexidine Gluconate 1 applic 03/15/19 22:00 03/25/19 21:18 Hibiclens For Decolonization - TP 1 applic HS [facility] Administration Digoxin 0.125 mg 03/16/19 10:00 03/25/19 10:22 Lanoxin - PO 0.125 mg DAILY [facility] Administration Piperacillin Sod/Tazobactam 50 mls @ 100 mls/hr 03/16/19 18:00 03/26/19 01:56 Sod 3.375 gm/ Dextrose IVPB 100 mls/hr Q8H-IV [facility] Administration Protocol Methylprednisolone Sodium Succinate 30 mg 03/23/19 10:00 03/25/19 10:22 Solu-Medrol - IVPUSH 30 mg DAILY [facility] Administration Metoprolol Tartrate 25 mg 03/24/19 22:00 03/25/19 21:17 Lopressor - PO 25 mg BID [facility] Administration Montelukast Sodium 10 mg 03/16/19 22:00 03/25/19 21:17 Singulair - PO 10 mg HS [facility] Administration Pantoprazole Sodium 40 mg 03/16/19 10:00 03/25/19 10:22 Protonix - PO 40 mg DAILY [facility] Administration Rivaroxaban 20 mg 03/16/19 08:00 03/25/19 09:15 Xarelto PO 20 mg DAILY@0800 [facility] Administration ASSESSMENT/PLAN: 68 yo M h/o PAH s/p R heart cath, on home oxygen 2.5 LPM, multiple PE (most recent one 3 years ago) s/p clot retrieval currently on Xarelto, prostate CA, h/ o pulmonary Aspergillus s/p RLL lobectomy in 2006 and reactive airway disease. Admitted to the ICU for acute on chronic hypercapnic respiratory failure. Pulm: Acute on Chronic Hypoxic and Hypercapneic Respiratory Failure; PE -continue alternating NIPPV and nasal cannula as per patient comfort level. -Low threshold for intubation and mechanical ventilation -PRN nebs and singulair -cont. IV Solu-medrol 30mg daily -Aspiration precautions -Continue Xarelto 20mg daily ID: Severe sepsis likely 2/2 PNA -Continue Zosyn 3.375gm q8h -sputum culture - Pseudomonas, Staph latex coag positive, yeast like organism -Sputum AFB culture pending -Blood cultures negative Cardiovascular:LV systolic dysfunction; Pulmonary HTN; sinus tach -Continue Digoxin -ECHO revealed severe LV dysfunction. Will closely monitor fluid status. Noted only mild pulmonary hypertension. -As per cardiology, sinus tach may be due to infection, hypoxia and poor pulmonary status Gastrointestinal: -Continue home Pantoprazole. -on soft diet with nutritional supplement #Genitourinary: -Hx of prostate cancer -monitor UO Neuro -Alert and oriented, off sedation FEN -Not on any standing fluids -Routine bmp monitoring -Soft diet with nutritional supplement Prophylaxis -DVT: Xarelto 20mg daily -GI: Pantoprazole 40mg daily Dispo -full code- -ICU monitoring -Both daughter and patient declining trach at this time. -will begin to discuss care home care for the patient; LTAC a possibility Visit type - Emergency Visit Emergency Visit: Yes ED Registration Date: 03/15/19 Care time: The patient presented to the Emergency Department on the above date and was hospitalized for further evaluation of their emergent condition. - New Patient This patient is new to me today: No - Critical Care Critical Care patient: Yes Total Critical Care Time (in minutes): 35 Critical Care Statement: The care of this patient involved high complexity decision making to prevent further life threatening deterioration of the patient 's condition and/or to evaluate & treat vital organ system(s) failure or risk of failure. - Discharge Referral Referred to [facility] No
[2019-03-26 13:52] LABS: HEMATOCRIT 40.6 % (35.4-49); HEMOGLOBIN 12.6 GM/dL (11.7-16.9); MEAN CELL VOLUME 93.8 fl (80-96); MEAN PLT VOLUME 7.5 fl (7.5-11.1); PLATELET COUNT 131 K/MM3 (134-434); RBC 4.33 M/mm3 (4.00-5.60); RDW 17.9 % (11.9-15.9); WHITE BLOOD COUNT 18.7 K/mm3 (4.0-10.0)
[2019-03-26 14:22] LABS: ANISOCYTOSIS 1+; MACROCYTOSIS 0; OVALOCYTE 1+; PLATELET ESTIMATE DECREASED
--- NOTE | 2019-03-26 17:28 | PN ---
Progress Note, Physician History of Present Illness: Pt is much more alert and responsive today. Denies SOB with BIPAP on. Remains afebrile. - Current Medication List Current Medications: Active Medications Albuterol Sulfate (Ventolin 0.083% Nebulizer Soln -) 1 amp NEB Q4H PRN PRN Reason: SHORT OF BREATH/WHEEZING Chlorhexidine Gluconate (Hibiclens For Decolonization -) 1 applic TP HS [facility] Last Admin: 03/25/19 21:18 Dose: 1 applic Digoxin (Lanoxin -) 0.125 mg PO DAILY [facility] Last Admin: 03/26/19 10:00 Dose: 0.125 mg Piperacillin Sod/Tazobactam (Sod 3.375 gm/ Dextrose) 50 mls @ 100 mls/hr IVPB Q8H-IV [facility]; Protocol Last Admin: 03/26/19 10:00 Dose: 100 mls/hr Vancomycin HCl (Vancomycin (Pre-Docked)) 1,000 mg in 250 mls @ 166.667 mls/hr IVPB Q24H [facility]; Protocol Methylprednisolone Sodium Succinate (Solu-Medrol -) 30 mg IVPUSH DAILY [facility] Last Admin: 03/26/19 10:00 Dose: 30 mg Metoprolol Tartrate (Lopressor -) 25 mg PO BID [facility] Last Admin: 03/26/19 10:00 Dose: 25 mg Montelukast Sodium (Singulair -) 10 mg PO HS [facility] Last Admin: 03/25/19 21:17 Dose: 10 mg Pantoprazole Sodium (Protonix -) 40 mg PO DAILY [facility] Last Admin: 03/26/19 10:00 Dose: 40 mg Rivaroxaban (Xarelto) 20 mg PO DAILY@0800 [facility] Last Admin: 03/26/19 09:00 Dose: 20 mg - Objective Vital Signs: Vital Signs Temperature 97.3 F L 03/26/19 14:00 Pulse Rate 75 03/26/19 14:00 Respiratory Rate 19 03/26/19 14:00 Blood Pressure 130/88 03/26/19 14:00 O2 Sat by Pulse Oximetry (%) 99 03/26/19 15:13 Constitutional: Yes: No Distress, Calm Cardiovascular: Yes: Pulse Irregular Respiratory: Yes: On BiPap, Wheezes Gastrointestinal: Yes: Normal Bowel Sounds, Soft Genitourinary: Yes: WNL Integumentary: Yes: WNL Neurological: Yes: Alert Labs: CBC, BMP 03/26/19 13:40 03/26/19 05:30 INR, PTT INR 2.20 (0.83-1.09) H 03/19/19 05:30 Microbiology 03/21/19 18:45 Sputum - Oropharynx Suctioned Sputum AFB Smear Concentration - Final 03/21/19 18:45 Sputum - Oropharynx Suctioned Sputum Direct Acid Fast Bacilli Smear - Final 03/21/19 18:45 Sputum - Oropharynx Suctioned Sputum Mycobacterial Culture - Preliminary 03/18/19 09:30 Sputum - Endotrachea Suction/Ventilator Yeast/Fungus Identification - Preliminary 03/18/19 09:30 Sputum - Endotrachea Suction/Ventilator Gram Stain - Final 03/18/19 09:30 Sputum - Endotrachea Suction/Ventilator Sputum Culture - Final Pseudomonas Aeruginosa Staphylococcus Aureus Yeast Like Organism 03/15/19 19:02 Blood - Peripheral Venous Blood Culture - Final NO GROWTH AFTER 5 DAYS INCUBATION 03/15/19 19:02 Blood - Peripheral Venous Blood Culture - Final NO GROWTH AFTER 5 DAYS INCUBATION Problem List - Problems (1) Hypoxia Code(s): R09.02 - HYPOXEMIA (2) Lung infiltrate Code(s): R91.8 - OTHER NONSPECIFIC ABNORMAL FINDING OF LUNG FIELD (3) Pulmonary arterial hypertension Code(s): I27.21 - SECONDARY PULMONARY ARTERIAL HYPERTENSION (4) Respiratory distress Code(s): R06.03 - ACUTE RESPIRATORY DISTRESS (5) Tachycardia Code(s): R00.0 - TACHYCARDIA, UNSPECIFIED Assessment/Plan Acute hypoxemic respiratory failure - on BIPAP PNA Sepsis Leukocytosis Hx PE Hx of Aspergillosus s/p RLL lobectomy -- wbc decreased earlier, now up to 18K again, remains afebrile, much more alert and comfortable today -- continue Zosyn, add Vancomycin IV -- repeat blood culture results pending -- repeat cbc, cmp -- LFTs trending down -- continue monitor wbc, vitals cc: 35 min
[2019-03-26] MEDS ORDERED: VANCOMYCIN 1 GRAM (PRE-DOCKED) 1,000 MG/250 ML BAG IVPB SCH (18:00)
[2019-03-26] MEDS: CHLORHEXIDINE GLUCONATE 4% CLEANSER FOR DECOLONIZATION TP SCH (22:16)
[2019-03-26] MEDS: MONTELUKAST NA 10 MG TABLET PO SCH (22:17)
--- NOTE | 2019-03-26 23:15 | PN ---
Progress Note, Physician History of Present Illness: No new changes - Current Medication List Current Medications: Active Medications Albuterol Sulfate (Ventolin 0.083% Nebulizer Soln -) 1 amp NEB Q4H PRN PRN Reason: SHORT OF BREATH/WHEEZING Chlorhexidine Gluconate (Hibiclens For Decolonization -) 1 applic TP HS [facility] Last Admin: 03/26/19 22:16 Dose: 1 applic Digoxin (Lanoxin -) 0.125 mg PO DAILY [facility] Last Admin: 03/26/19 10:00 Dose: 0.125 mg Piperacillin Sod/Tazobactam (Sod 3.375 gm/ Dextrose) 50 mls @ 100 mls/hr IVPB Q8H-IV [facility]; Protocol Last Admin: 03/26/19 17:36 Dose: 100 mls/hr Vancomycin HCl (Vancomycin (Pre-Docked)) 1,000 mg in 250 mls @ 166.667 mls/hr IVPB Q24H [facility]; Protocol Last Admin: 03/26/19 18:18 Dose: 166.667 mls/hr Methylprednisolone Sodium Succinate (Solu-Medrol -) 30 mg IVPUSH DAILY [facility] Last Admin: 03/26/19 10:00 Dose: 30 mg Metoprolol Tartrate (Lopressor -) 25 mg PO BID [facility] Last Admin: 03/26/19 22:17 Dose: 25 mg Montelukast Sodium (Singulair -) 10 mg PO HS [facility] Last Admin: 03/26/19 22:17 Dose: 10 mg Pantoprazole Sodium (Protonix -) 40 mg PO DAILY [facility] Last Admin: 03/26/19 10:00 Dose: 40 mg Rivaroxaban (Xarelto) 20 mg PO DAILY@0800 [facility] Last Admin: 03/26/19 09:00 Dose: 20 mg - Objective Vital Signs: Vital Signs Temperature 97.3 F L 03/26/19 14:00 Pulse Rate 115 H 03/26/19 18:00 Respiratory Rate 20 03/26/19 18:00 Blood Pressure 145/99 03/26/19 18:00 O2 Sat by Pulse Oximetry (%) 100 03/26/19 19:41 Neck: Yes: WNL, Supple Cardiovascular: Yes: Pulse Irregular Respiratory: Yes: Wheezes Gastrointestinal: Yes: WNL, Normal Bowel Sounds, Soft Edema: No Labs: CBC, BMP 03/26/19 13:40 03/26/19 05:30 INR, PTT INR 2.20 (0.83-1.09) H 03/19/19 05:30 Problem List - Problems (1) Elevated LFTs Assessment/Plan: Cont to trend Check US abdomen GI consult Code(s): R94.5 - ABNORMAL RESULTS OF LIVER FUNCTION STUDIES (2) Sepsis Assessment/Plan: Due to pneumonia Cont IV zosyn/vanco Monitor WBC Code(s): A41.9 - SEPSIS, UNSPECIFIED ORGANISM (3) Respiratory failure Code(s): J96.90 - RESPIRATORY FAILURE, UNSP, UNSP W HYPOXIA OR HYPERCAPNIA (4) Pulmonary embolus Assessment/Plan: Cont xarelto Code(s): I26.99 - OTHER PULMONARY EMBOLISM WITHOUT ACUTE COR PULMONALE
[2019-03-27] MEDS: PIPERACILLIN/TAZOB 3.375 GM 3.375 GM in DEXTROSE 5%-WATER - 50 ML IVPB SCH ×3 (02:45→17:45)
[2019-03-27] MEDS ORDERED: PIPERACILLIN/TAZOBACTAM 3.375 GM VIAL IVPB ONE ×3 (03:03→17:30)
[2019-03-27] MEDS ORDERED: DEXTROSE 5%-WATER - 50 ML IVPB ONE ×3 (03:03→17:31)
[2019-03-27 07:14] LABS: ALBUMIN 1.8 g/dl (3.4-5.0); BILIRUBIN,TOTAL 1.2 mg/dL (0.2-1); CALCIUM 8.6 mg/dL (8.5-10.1); CREATININE 0.6 mg/dL (0.55-1.3); MAGNESIUM 2.4 mg/dL (1.8-2.4); PHOSPHOROUS 2.6 mg/dL (2.5-4.9); POTASSIUM 4.3 mmol/L (3.5-5.1); TOT PROT 5.1 g/dl (6.4-8.2)
--- NOTE | 2019-03-27 08:25 | CON.GI ---
Consult Consult Specialty:: GI Referred by:: Dr. Aleah Clemente Reason for Consultation:: Elevated LFTs - History of Present Illness History of Present Illness: Patient is a 68 y/o male with past medical history of Pulmonary Arterial, HTN, home oxygen, multiple PE's (on xarelto), Prostate CA, Aspergillus s/p RLL lobectomy, chidhood asthma, and reactive airway disease. Since admission patient was noted with severely elevated LFTs with AST 475, ALT 8.4, and Alk Phos 209. Most recent labs (03/27 530) shows downtrend in LFTs with AST 118, ALT 472, and Alk Phos 196. Patient denies any history of chronic ETOH abuse or IVDU, no history of statin use. Patient denies nausea, vomiting, abdominal pain , diarrhea, rectal bleeding, melena. - History Source History Provided By: Patient Limitations to Obtaining History: No Limitations - Past Medical History Cardio/Vascular: Yes: HTN Pulmonary: Yes: Asthma, Pneumonia, Pulmonary Embolus - Alcohol/Substance Use Hx Alcohol Use: No - Smoking History Smoking history: Never smoked Have you smoked in the past 12 months: No - Social History History of Recent Travel: No Home Medications - Allergies Allergies/Adverse Reactions: Allergies Allergy/AdvReac Type Severity Reaction Status Date / Time ketorolac [From Toradol] AdvReac Difficulty Verified 03/15/19 16:56 Breathing - Home Medications Home Medications: Ambulatory Orders Digoxin [Lanoxin -] 0.125 mg PO Q2D 03/15/19 Montelukast Sodium [Singulair] 10 mg PO DAILY 03/15/19 Pantoprazole Sodium [Protonix -] 40 mg PO DAILY 03/15/19 Prednisone 10 mg PO DAILY 03/15/19 Rivaroxaban [Xarelto -] 20 mg PO DAILY 03/15/19 Albuterol 0.083% Nebulizer Dot [Ventolin 0.083% Nebulizer Soln -] 1 neb NEB Q6H 03/22/19 Review of Systems - Review of Systems Constitutional: reports: No Symptoms Eyes: reports: No Symptoms HENT: reports: No Symptoms Neck: reports: No Symptoms Respiratory: reports: SOB Gastrointestinal: reports: No Symptoms Genitourinary: reports: No Symptoms Breasts: reports: No Symptoms Reported Musculoskeletal: reports: No Symptoms Integumentary: reports: No Symptoms Neurological: reports: No Symptoms Endocrine: reports: No Symptoms Hematology/Lymphatic: reports: No Symptoms Psychiatric: reports: No Symptoms Physical Exam-GI Vital Signs: Vital Signs Temperature 98 F 03/27/19 06:00 Pulse Rate 66 03/27/19 08:00 Respiratory Rate 16 03/27/19 08:00 Blood Pressure 147/85 03/27/19 08:00 O2 Sat by Pulse Oximetry (%) 98 03/27/19 06:31 Constitutional: Yes: No Distress, Calm Eyes: Yes: Conjunctiva Clear HENT: Yes: Atraumatic Cardiovascular: Yes: Pulse Irregular Respiratory: Yes: On BiPap, Wheezes Gastrointestinal Inspection: Yes: Other (refused exam) ...Auscultate: Yes: Normoactive Bowel Sounds. No: Hyperactive Bowel Sounds, Hypoactive Bowel Sounds, No Bowel Sounds, Other ...Palpate: Yes: Other (refused exam). No: Firm/Rigid, Guarding, Hepatomegaly, Mass, Pulsatile Mass, Soft, Splenomegaly, Tenderness, Tenderness, Epigastium, Tenderness, Rebound ...Percussion: Yes: Other (refused exam). No: Dullness, Fluid Wave, Tympanitic Neurological: Yes: Alert, Oriented Psychiatric: Yes: Alert, Oriented Labs: CBC, BMP 03/26/19 13:40 03/27/19 05:30 INR, PTT INR 2.20 (0.83-1.09) H 03/19/19 05:30 Active Medications Generic Name Dose Route Start Last Admin Trade Name Freq PRN Reason Stop Dose Admin Albuterol Sulfate 1 amp 03/22/19 10:33 Ventolin 0.083% Nebulizer Soln - NEB Q4H PRN SHORT OF BREATH/WHEEZING Chlorhexidine Gluconate 1 applic 03/15/19 22:00 03/26/19 22:16 Hibiclens For Decolonization - TP 1 applic HS [facility] Administration Digoxin 0.125 mg 03/16/19 10:00 03/26/19 10:00 Lanoxin - PO 0.125 mg DAILY [facility] Administration Piperacillin Sod/Tazobactam 50 mls @ 100 mls/hr 03/16/19 18:00 03/27/19 02:45 Sod 3.375 gm/ Dextrose IVPB 100 mls/hr Q8H-IV [facility] Administration Protocol Vancomycin HCl 1,000 mg in 250 mls @ 166.667 mls/hr 03/26/19 18:00 03/26/19 18:18 Vancomycin (Pre-Docked) IVPB 166.667 mls/hr Q24H [facility] Administration Protocol Methylprednisolone Sodium Succinate 30 mg 03/23/19 10:00 03/26/19 10:00 Solu-Medrol - IVPUSH 30 mg DAILY [facility] Administration Metoprolol Tartrate 25 mg 03/24/19 22:00 03/26/19 22:17 Lopressor - PO 25 mg BID [facility] Administration Montelukast Sodium 10 mg 03/16/19 22:00 03/26/19 22:17 Singulair - PO 10 mg HS [facility] Administration Pantoprazole Sodium 40 mg 03/16/19 10:00 03/26/19 10:00 Protonix - PO 40 mg DAILY [facility] Administration Rivaroxaban 20 mg 03/16/19 08:00 03/26/19 09:00 Xarelto PO 20 mg DAILY@0800 [facility] Administration Problem List - Problems (1) Elevated LFTs Assessment/Plan: r/o secondary to ischemia, underlying sepsis and Xarelto? >continue to trend LFTs >Pending Abdominal US GI service will follow patient Code(s): R94.5 - ABNORMAL RESULTS OF LIVER FUNCTION STUDIES
[2019-03-27] MEDS: methylPREDNISolone NA SUCC 40 MG/1 ML VIAL IVPUSH SCH (09:03)
[2019-03-27] MEDS: DIGOXIN 0.125 MG TABLET (FP) PO SCH (09:04)
[2019-03-27] MEDS: PANTOPRAZOLE 40 MG TABLET (FP) PO SCH (09:04)
[2019-03-27] MEDS: RIVAROXABAN 20 MG TABLET PO SCH (09:04)
[2019-03-27] MEDS: METOPROLOL TARTRATE 25 MG TABLET (FP) PO SCH ×2 (09:05→21:57)
[2019-03-27] MEDS ORDERED: methylPREDNISolone NA SUCC 40 MG/1 ML VIAL IVPUSH SCH (11:17)
--- NOTE | 2019-03-27 11:43 | PN ---
Teaching Attending Note Name of Resident: Billie Solis ATTENDING PHYSICIAN STATEMENT I saw and evaluated the patient. I reviewed the resident's note and discussed the case with the resident. I agree with the resident's findings and plan as documented. SUBJECTIVE: Pt seen and examined in the ICU. Remains on BiPAP but states breathing better. No fevers recorded. Saturations improving. OBJECTIVE: Vital Signs Period Temp Pulse Resp BP Sys/Wright Pulse Ox Last 24 Hr 97.3 F-98 F 59-115 10-27 121-147/76-113 98-100 Intake & Output 03/24/19 03/25/19 03/26/19 03/27/19 23:59 23:59 23:59 23:59 Intake Total 1046 450 968 324 Output Total 650 650 Balance 396 -200 968 324 Weight 46.357 kg 46.357 kg 43.091 kg 43.091 kg Gen: less tachypneic on BiPAP Heart: RRR Lung: distant breath sounds Abd: soft, nontender Ext: no edema CBC, BMP 03/26/19 13:40 03/27/19 05:30 Active Medications Albuterol Sulfate (Ventolin 0.083% Nebulizer Soln -) 1 amp NEB Q4H PRN PRN Reason: SHORT OF BREATH/WHEEZING Chlorhexidine Gluconate (Hibiclens For Decolonization -) 1 applic TP HS [facility] Last Admin: 03/26/19 22:16 Dose: 1 applic Digoxin (Lanoxin -) 0.125 mg PO DAILY [facility] Last Admin: 03/27/19 09:04 Dose: 0.125 mg Piperacillin Sod/Tazobactam (Sod 3.375 gm/ Dextrose) 50 mls @ 100 mls/hr IVPB Q8H-IV [facility]; Protocol Last Admin: 03/27/19 09:03 Dose: 100 mls/hr Vancomycin HCl (Vancomycin (Pre-Docked)) 1,000 mg in 250 mls @ 166.667 mls/hr IVPB Q24H [facility]; Protocol Last Admin: 03/26/19 18:18 Dose: 166.667 mls/hr Methylprednisolone Sodium Succinate (Solu-Medrol -) 20 mg IVPUSH DAILY [facility] Metoprolol Tartrate (Lopressor -) 25 mg PO BID [facility] Last Admin: 03/27/19 09:05 Dose: 25 mg Montelukast Sodium (Singulair -) 10 mg PO HS [facility] Last Admin: 03/26/19 22:17 Dose: 10 mg Pantoprazole Sodium (Protonix -) 40 mg PO DAILY [facility] Last Admin: 03/27/19 09:04 Dose: 40 mg Rivaroxaban (Xarelto) 20 mg PO DAILY@0800 [facility] Last Admin: 03/27/19 09:04 Dose: 20 mg ASSESSMENT AND PLAN: 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
--- NOTE | 2019-03-27 11:46 | PN ---
Progress Note, Physician History of Present Illness: stable still with resp issues needing bipap - Current Medication List Current Medications: Active Medications Albuterol Sulfate (Ventolin 0.083% Nebulizer Soln -) 1 amp NEB Q4H PRN PRN Reason: SHORT OF BREATH/WHEEZING Chlorhexidine Gluconate (Hibiclens For Decolonization -) 1 applic TP HS [facility] Last Admin: 03/26/19 22:16 Dose: 1 applic Digoxin (Lanoxin -) 0.125 mg PO DAILY [facility] Last Admin: 03/27/19 09:04 Dose: 0.125 mg Piperacillin Sod/Tazobactam (Sod 3.375 gm/ Dextrose) 50 mls @ 100 mls/hr IVPB Q8H-IV [facility]; Protocol Last Admin: 03/27/19 09:03 Dose: 100 mls/hr Vancomycin HCl (Vancomycin (Pre-Docked)) 1,000 mg in 250 mls @ 166.667 mls/hr IVPB Q24H [facility]; Protocol Last Admin: 03/26/19 18:18 Dose: 166.667 mls/hr Methylprednisolone Sodium Succinate (Solu-Medrol -) 20 mg IVPUSH DAILY [facility] Metoprolol Tartrate (Lopressor -) 25 mg PO BID [facility] Last Admin: 03/27/19 09:05 Dose: 25 mg Montelukast Sodium (Singulair -) 10 mg PO [facility] Last Admin: 03/26/19 22:17 Dose: 10 mg Pantoprazole Sodium (Protonix -) 40 mg PO DAILY [facility] Last Admin: 03/27/19 09:04 Dose: 40 mg Rivaroxaban (Xarelto) 20 mg PO DAILY@0800 [facility] Last Admin: 03/27/19 09:04 Dose: 20 mg - Objective Vital Signs: Vital Signs Temperature 97.3 F L 03/27/19 10:00 Pulse Rate 73 03/27/19 10:00 Respiratory Rate 27 H 03/27/19 10:00 Blood Pressure 143/102 H 03/27/19 10:00 O2 Sat by Pulse Oximetry (%) 100 03/27/19 10:48 Constitutional: Yes: Calm, Mild Distress Cardiovascular: Yes: Regular Rate and Rhythm Respiratory: Yes: Regular, On BiPap Gastrointestinal: Yes: Normal Bowel Sounds, Soft Musculoskeletal: Yes: WNL Extremities: Yes: WNL Neurological: Yes: Alert, Oriented Psychiatric: Yes: Alert, Oriented Labs: CBC, BMP 03/26/19 13:40 03/27/19 05:30 INR, PTT INR 2.20 (0.83-1.09) H 03/19/19 05:30 Assessment/Plan patient with multiple medical problems who is now intubated and sedated all work up has been send ASSESSMENT AND PLAN: Respiratory Failure Pneumonia Severe Sepsis Lactic Acidosis Pulmonary HTN h/o PE h/o of aspergellosis h/o of lobectomy await for sputum cx plan continue zosyn vent mgmt resp support rest as per icu nutrition weaning trials as tolerated cc 38min
--- NOTE | 2019-03-27 11:48 | PN ---
Progress Note, Physician History of Present Illness: patient stable now on bipap - Current Medication List Current Medications: Active Medications Albuterol Sulfate (Ventolin 0.083% Nebulizer Soln -) 1 amp NEB Q4H PRN PRN Reason: SHORT OF BREATH/WHEEZING Chlorhexidine Gluconate (Hibiclens For Decolonization -) 1 applic TP HS [facility] Last Admin: 03/26/19 22:16 Dose: 1 applic Digoxin (Lanoxin -) 0.125 mg PO DAILY [facility] Last Admin: 03/27/19 09:04 Dose: 0.125 mg Piperacillin Sod/Tazobactam (Sod 3.375 gm/ Dextrose) 50 mls @ 100 mls/hr IVPB Q8H-IV [facility]; Protocol Last Admin: 03/27/19 09:03 Dose: 100 mls/hr Methylprednisolone Sodium Succinate (Solu-Medrol -) 20 mg IVPUSH DAILY [facility] Metoprolol Tartrate (Lopressor -) 25 mg PO BID [facility] Last Admin: 03/27/19 09:05 Dose: 25 mg Montelukast Sodium (Singulair -) 10 mg PO HS [facility] Last Admin: 03/26/19 22:17 Dose: 10 mg Pantoprazole Sodium (Protonix -) 40 mg PO DAILY [facility] Last Admin: 03/27/19 09:04 Dose: 40 mg Rivaroxaban (Xarelto) 20 mg PO DAILY@0800 [facility] Last Admin: 03/27/19 09:04 Dose: 20 mg - Objective Vital Signs: Vital Signs Temperature 97.3 F L 03/27/19 10:00 Pulse Rate 73 03/27/19 10:00 Respiratory Rate 27 H 03/27/19 10:00 Blood Pressure 143/102 H 03/27/19 10:00 O2 Sat by Pulse Oximetry (%) 100 03/27/19 10:48 Constitutional: Yes: No Distress, Calm Cardiovascular: Yes: S1, S2 Respiratory: Yes: Regular, On BiPap, Poor Air Entry Gastrointestinal: Yes: Normal Bowel Sounds, Soft Genitourinary: Yes: WNL Musculoskeletal: Yes: WNL Extremities: Yes: WNL Neurological: Yes: Alert, Oriented Psychiatric: Yes: Alert, Oriented Labs: CBC, BMP 03/26/19 13:40 03/27/19 05:30 INR, PTT INR 2.20 (0.83-1.09) H 03/19/19 05:30 - ....Imaging Chest X-ray: Report Reviewed, Image Reviewed Assessment/Plan patient with multiple medical problems who is now intubated and sedated all work up has been send ASSESSMENT AND PLAN: Respiratory Failure Pneumonia Severe Sepsis Lactic Acidosis Pulmonary HTN h/o PE h/o of aspergellosis h/o of lobectomy await for sputum cx plan continue zosyn will stop vanco wbc high probably due to steroids resp support rest as per icu cc 38 min
--- NOTE | 2019-03-27 14:14 | PN ---
Physical Exam: SUBJECTIVE: Patient seen and examined at bedside this morning. No acute events overnight. Patient was on bipap overnight. This morning, patient on nasal cannula for breakfast, but preferred to be back to bipap after eating. Denies fever, chills, chest pain, abdominal pain, urinary symptoms. OBJECTIVE: Vital Signs Temperature 97.3 F L 03/27/19 10:00 Pulse Rate 68 03/27/19 12:00 Respiratory Rate 27 H 03/27/19 10:00 Blood Pressure 143/102 H 03/27/19 10:00 O2 Sat by Pulse Oximetry (%) 100 03/27/19 10:48 GENERAL: The patient is awake, alert, and oriented, on NIPPV. HEAD: Normal with no signs of trauma. EYES: PERRLA,EOMI, sclera anicteric, conjunctiva clear. ENT: oropharynx clear without exudates, moist mucous membranes. LUNGS: Decreased breath sounds on the Right>left HEART:Regular rate and rhythm, S1, S2 without murmur, rub or gallop. ABDOMEN: Soft, nontender, nondistended, normoactive bowel sounds. EXTREMITIES: 2+ pulses, warm, well-perfused, no edema. SKIN: Warm, dry, normal turgor, no rashes or lesions noted Laboratory Results - last 24 hr 03/26/19 03/26/19 03/27/19 05:30 13:40 05:30 WBC 18.7 H RBC 4.33 Hgb 12.6 Hct 40.6 MCV 93.8 MCH 29.0 MCHC 31.0 L RDW 17.9 H Plt Count 131 L MPV 7.5 Neutrophils % (Manual) 97.0 H Band Neutrophils % 0.0 Lymphocytes % (Manual) 0.0 L Monocytes % (Manual) 2 L D Eosinophils % (Manual) 0.0 Basophils % (Manual) 0.0 Myelocytes % (Man) 0 D Promyelocytes % (Man) 0 Blast Cells % (Manual) 0 Metamyelocytes 0 Hypochromia 0 Platelet Estimate Decreased Polychromasia 1+ Poikilocytosis 0 Anisocytosis 1+ Microcytosis 1+ Macrocytosis 0 Spherocytes 2+ Ovalocytes 1+ [place] Cells 1+ Acanthocytes (Spur) 1+ Fragmented RBCs 1+ Sodium 150 H Potassium 4.3 Chloride 114 H Carbon Dioxide 35 H Anion Gap 2 L BUN 23 H Creatinine 0.6 Est GFR (CKD-EPI)AfAm 119.74 Est GFR (CKD-EPI)NonAf 103.31 Random Glucose 89 Calcium 8.6 Phosphorus 2.6 Magnesium 2.4 Total Bilirubin 1.2 H AST 118 H ALT 472 H Alkaline Phosphatase 196 H Total Protein 5.1 L Albumin 1.8 L Active Medications Generic Name Dose Route Start Last Admin Trade Name Freq PRN Reason Stop Dose Admin Albuterol Sulfate 1 amp 03/22/19 10:33 Ventolin 0.083% Nebulizer Soln - NEB Q4H PRN SHORT OF BREATH/WHEEZING Chlorhexidine Gluconate 1 applic 03/15/19 22:00 03/26/19 22:16 Hibiclens For Decolonization - TP 1 applic HS [facility] Administration Digoxin 0.125 mg 03/16/19 10:00 03/27/19 09:04 Lanoxin - PO 0.125 mg DAILY [facility] Administration Piperacillin Sod/Tazobactam 50 mls @ 100 mls/hr 03/16/19 18:00 03/27/19 09:03 Sod 3.375 gm/ Dextrose IVPB 100 mls/hr Q8H-IV [facility] Administration Protocol Methylprednisolone Sodium Succinate 20 mg 03/27/19 11:17 Solu-Medrol - IVPUSH DAILY [facility] Metoprolol Tartrate 25 mg 03/24/19 22:00 03/27/19 09:05 Lopressor - PO 25 mg BID [facility] Administration Montelukast Sodium 10 mg 03/16/19 22:00 03/26/19 22:17 Singulair - PO 10 mg HS [facility] Administration Pantoprazole Sodium 40 mg 03/16/19 10:00 03/27/19 09:04 Protonix - PO 40 mg DAILY [facility] Administration Rivaroxaban 20 mg 03/16/19 08:00 03/27/19 09:04 Xarelto PO 20 mg DAILY@0800 [facility] Administration ASSESSMENT/PLAN: Patient is a 68 yo M h/o PAH s/p R heart cath, on home oxygen 2.5 LPM, multiple PE (most recent one 3 years ago) s/p clot retrieval currently on Xarelto, prostate CA, h/o pulmonary Aspergillus s/p RLL lobectomy in 2006 and reactive airway disease. Admitted to the ICU for acute on chronic hypercapnic respiratory failure. #Neuro -Alert and oriented, off sedation #Cardiovascular: 1. LV systolic dysfunction 2. Pulmonary HTN -Cardiology (Dr. Herndon) consulted. Recommendations appreciated. -Tachycardic with MAPs maintained above 65. -Continue Digoxin per home dose. -ECHO revealed severe LV dysfunction. Will closely monitor fluid status. Noted only mild pulmonary hypertension. 3. Sinus tachycardia vs atrial tachycardia -EKG/tele showing rapid regular rhythm -As per cardiology, may be due to infection, hypoxia and poor pulmonary status #Pulmo 1. Acute on Chronic Hypoxic and Hypercapneic Respiratory Failure -alternate nasal cannula and bipap, maintaining SpO2 >90% -NIPPV PRN -Continue antibiotics -Duonebs RQID, Singulair. -IV Solu-medrol decreased to 20mg daily -Aspiration precautions 2. Hx of PE. -Continue Xarelto 20mg daily -No evidence of massive PE on CTA. 3. Hx of RIGHT lower lobe lobectomy insetting of Aspergillosis infection. #Gastrointestinal: -Continue home Pantoprazole. -on soft diet with nutritional supplement -Speech and Swallow evaluation #Genitourinary: -Hx of prostate cancer -monitor UO #ID 1. Severe sepsis likely 2/2 PNA -ID (Dr. Cody) consulted. Recommendations appreciated. -Continue Zosyn 3.375gm q8h -Vanc started over the weekend, but discontinued today. -Leukocytosis probably due to steroids -sputum culture - Pseudomonas, Staph latex coag positive, yeast like organism -Sputum AFB culture negative -Blood cultures negative #FEN -Not on any standing fluids -Routine bmp monitoring -Soft diet with nutritional supplement #Prophylaxis -DVT: Xarelto 20mg daily -GI: Pantoprazole 40mg daily #Dispo: -full code -transfer to tele Visit type - Emergency Visit Emergency Visit: Yes ED Registration Date: 03/15/19 Care time: The patient presented to the Emergency Department on the above date and was hospitalized for further evaluation of their emergent condition. - New Patient This patient is new to me today: No - Critical Care Critical Care patient: Yes Total Critical Care Time (in minutes): 37 Critical Care Statement: The care of this patient involved high complexity decision making to prevent further life threatening deterioration of the patient 's condition and/or to evaluate & treat vital organ system(s) failure or risk of failure.
[2019-03-27] MEDS ORDERED: ALBUTEROL SO4 0.083% IH SOL 2.5 MG/3 ML VIAL.NEB. NEB PRN (18:14)
--- NOTE | 2019-03-27 19:40 | PN ---
Progress Note, Physician History of Present Illness: on bipap - Current Medication List Current Medications: Active Medications Albuterol Sulfate (Ventolin 0.083% Nebulizer Soln -) 1 amp NEB Q4H PRN PRN Reason: SHORT OF BREATH/WHEEZING Chlorhexidine Gluconate (Hibiclens For Decolonization -) 1 applic TP HS [facility] Digoxin (Lanoxin -) 0.125 mg PO DAILY [facility] Piperacillin Sod/Tazobactam (Sod 3.375 gm/ Dextrose) 50 mls @ 100 mls/hr IVPB Q8H-IV [facility]; Protocol Methylprednisolone Sodium Succinate (Solu-Medrol -) 20 mg IVPUSH DAILY [facility] Metoprolol Tartrate (Lopressor -) 25 mg PO BID [facility] Montelukast Sodium (Singulair -) 10 mg PO HS [facility] Pantoprazole Sodium (Protonix -) 40 mg PO DAILY [facility] Rivaroxaban (Xarelto) 20 mg PO DAILY@0800 [facility] - Objective Vital Signs: Vital Signs Temperature 98 F 03/27/19 18:00 Pulse Rate 83 03/27/19 18:11 Respiratory Rate 16 03/27/19 18:00 Blood Pressure 126/88 03/27/19 18:00 O2 Sat by Pulse Oximetry (%) 100 03/27/19 18:11 Constitutional: Yes: No Distress HENT: Yes: Atraumatic Neck: Yes: Supple Cardiovascular: Yes: Regular Rate and Rhythm Respiratory: Yes: Rhonchi, Wheezes Gastrointestinal: Yes: Normal Bowel Sounds Extremities: Yes: WNL Edema: No Neurological: Yes: Alert, Oriented Labs: CBC, BMP 03/26/19 13:40 03/27/19 05:30 INR, PTT INR 2.20 (0.83-1.09) H 03/19/19 05:30 Problem List - Problems (1) Cor pulmonale Assessment/Plan: stable Code(s): I27.81 - COR PULMONALE (CHRONIC) (2) Hypoxia Assessment/Plan: extubated stable on bipap Code(s): R09.02 - HYPOXEMIA (3) Pulmonary arterial hypertension Code(s): I27.21 - SECONDARY PULMONARY ARTERIAL HYPERTENSION (4) Respiratory distress Assessment/Plan: stable on bipap Code(s): R06.03 - ACUTE RESPIRATORY DISTRESS (5) Lung infiltrate Assessment/Plan: on iv abx id on board Code(s): R91.8 - OTHER NONSPECIFIC ABNORMAL FINDING OF LUNG FIELD (6) Sepsis Assessment/Plan: on abx cxs noted Code(s): A41.9 - SEPSIS, UNSPECIFIED ORGANISM Assessment/Plan ASSESSMENT AND PLAN: Respiratory Failure Pneumonia Severe Sepsis Lactic Acidosis Pulmonary HTN h/o PE h/o of aspergellosis h/o of lobectomy plan iv empiric abx iv steroids sputum cx nutrition pt is intubated dvt ppx icu cc time 40 min
[2019-03-27 20:21] VITALS: BMI 15.3
[2019-03-27] MEDS: CHLORHEXIDINE GLUCONATE 4% CLEANSER FOR DECOLONIZATION TP SCH (21:57)
[2019-03-27] MEDS: MONTELUKAST NA 10 MG TABLET PO SCH (21:57)
[2019-03-28] MEDS ORDERED: PIPERACILLIN/TAZOBACTAM 3.375 GM VIAL IVPB ONE ×3 (01:04→17:10)
[2019-03-28] MEDS ORDERED: DEXTROSE 5%-WATER - 50 ML IVPB ONE ×3 (01:04→17:11)
[2019-03-28] MEDS: PIPERACILLIN/TAZOB 3.375 GM 3.375 GM in DEXTROSE 5%-WATER - 50 ML IVPB SCH ×3 (01:08→17:15)
[2019-03-28 06:48] LABS: BASO % 0.4 % (0-2.0); HEMATOCRIT 37.4 % (35.4-49); HEMOGLOBIN 11.8 GM/dL (11.7-16.9); MCH 28.8 pg (25.7-33.7); MCHC 31.5 g/dl (32.0-35.9); MEAN CELL VOLUME 91.3 fl (80-96); MEAN PLT VOLUME 8.5 fl (7.5-11.1); MONO % 5.6 % (3.8-10.2); PLATELET COUNT 153 K/MM3 (134-434); RDW 17.9 % (11.9-15.9); WHITE BLOOD COUNT 16.8 K/mm3 (4.0-10.0)
[2019-03-28 07:23] LABS: ALBUMIN 1.9 g/dl (3.4-5.0); BILIRUBIN,TOTAL 0.9 mg/dL (0.2-1); CALCIUM 8.5 mg/dL (8.5-10.1); CREATININE 0.4 mg/dL (0.55-1.3); MAGNESIUM 2.3 mg/dL (1.8-2.4); PHOSPHOROUS 2.2 mg/dL (2.5-4.9); POTASSIUM 3.9 mmol/L (3.5-5.1); TOT PROT 5.2 g/dl (6.4-8.2)
[2019-03-28 10:08] LABS: ANISOCYTOSIS 1+; MACROCYTOSIS 1+; OVALOCYTE 1+; TARGET CELLS 1+
[2019-03-28 10:59] LABS: PLATELET ESTIMATE ADEQUATE
[2019-03-28] MEDS ORDERED: PT OWN MED DRAWER 7, Y5N ONE (11:51)
[2019-03-28] MEDS: DIGOXIN 0.125 MG TABLET (FP) PO SCH (11:54)
[2019-03-28] MEDS: PANTOPRAZOLE 40 MG TABLET (FP) PO SCH (11:55)
[2019-03-28] MEDS: RIVAROXABAN 20 MG TABLET PO SCH (11:55)
[2019-03-28] MEDS: methylPREDNISolone NA SUCC 40 MG/1 ML VIAL IVPUSH SCH (11:55)
[2019-03-28] MEDS: METOPROLOL TARTRATE 25 MG TABLET (FP) PO SCH ×2 (11:55→22:13)
--- NOTE | 2019-03-28 13:00 | PN ---
Progress Note, Physician - Current Medication List Current Medications: Active Medications Albuterol Sulfate (Ventolin 0.083% Nebulizer Soln -) 1 amp NEB Q4H PRN PRN Reason: SHORT OF BREATH/WHEEZING Chlorhexidine Gluconate (Hibiclens For Decolonization -) 1 applic TP HS [facility] Last Admin: 03/27/19 21:57 Dose: 1 applic Digoxin (Lanoxin -) 0.125 mg PO DAILY [facility] Last Admin: 03/28/19 11:54 Dose: 0.125 mg Piperacillin Sod/Tazobactam (Sod 3.375 gm/ Dextrose) 50 mls @ 100 mls/hr IVPB Q8H-IV [facility]; Protocol Last Admin: 03/28/19 11:56 Dose: 100 mls/hr Methylprednisolone Sodium Succinate (Solu-Medrol -) 20 mg IVPUSH DAILY [facility] Last Admin: 03/28/19 11:55 Dose: 20 mg Metoprolol Tartrate (Lopressor -) 25 mg PO BID [facility] Last Admin: 03/28/19 11:55 Dose: 25 mg Montelukast Sodium (Singulair -) 10 mg PO HS [facility] Last Admin: 03/27/19 21:57 Dose: 10 mg Pantoprazole Sodium (Protonix -) 40 mg PO DAILY [facility] Last Admin: 03/28/19 11:55 Dose: 40 mg Rivaroxaban (Xarelto) 20 mg PO DAILY@0800 [facility] Last Admin: 03/28/19 11:55 Dose: 20 mg - Objective Vital Signs: Vital Signs Temperature 98.2 F 03/28/19 06:00 Pulse Rate 73 03/28/19 11:54 Respiratory Rate 16 03/28/19 06:00 Blood Pressure 146/87 03/28/19 06:00 O2 Sat by Pulse Oximetry (%) 100 03/28/19 11:45 Labs: CBC, BMP 03/28/19 05:30 03/28/19 05:30 INR, PTT INR 2.20 (0.83-1.09) H 03/19/19 05:30
--- NOTE | 2019-03-28 13:02 | PN ---
Progress Note (short form) - Note Progress Note: PULMONARY States breathing better today. No cough or wheezing. BiPAP overnight, on nasal cannula currently. Vital Signs Period Temp Pulse Resp BP Sys/Wright Pulse Ox Last 24 Hr 98 F-98.2 F 66-96 16-18 122-146/71-88 98-100 Gen: tachypneic with speaking Heart: RRR Lung: distant breath sounds Abd: soft, nontender Ext: no edema CBC, BMP 03/28/19 05:30 03/28/19 05:30 Active Medications Albuterol Sulfate (Ventolin 0.083% Nebulizer Soln -) 1 amp NEB Q4H PRN PRN Reason: SHORT OF BREATH/WHEEZING Chlorhexidine Gluconate (Hibiclens For Decolonization -) 1 applic TP HS [facility] Last Admin: 03/27/19 21:57 Dose: 1 applic Digoxin (Lanoxin -) 0.125 mg PO DAILY [facility] Last Admin: 03/28/19 11:54 Dose: 0.125 mg Piperacillin Sod/Tazobactam (Sod 3.375 gm/ Dextrose) 50 mls @ 100 mls/hr IVPB Q8H-IV [facility]; Protocol Last Admin: 03/28/19 11:56 Dose: 100 mls/hr Methylprednisolone Sodium Succinate (Solu-Medrol -) 20 mg IVPUSH DAILY [facility] Last Admin: 03/28/19 11:55 Dose: 20 mg Metoprolol Tartrate (Lopressor -) 25 mg PO BID [facility] Last Admin: 03/28/19 11:55 Dose: 25 mg Montelukast Sodium (Singulair -) 10 mg PO HS [facility] Last Admin: 03/27/19 21:57 Dose: 10 mg Pantoprazole Sodium (Protonix -) 40 mg PO DAILY [facility] Last Admin: 03/28/19 11:55 Dose: 40 mg Rivaroxaban (Xarelto) 20 mg PO DAILY@0800 [facility] Last Admin: 03/28/19 11:55 Dose: 20 mg A/P 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
--- NOTE | 2019-03-28 13:50 | PN.GI ---
GI Progress Note Subjective: PATIENT CHINYERE ANY COMPLAINTS OF ABDOMINAL PAIN NAUSEA/ VOMITING/ BLOOD IN THE STOOL / DIARRHEA / CONSTIPATION. STATES HE IS FEELING WELL. HE HAS BEEN TOLERATING FULL DIET WITH ANY PAIN. - Objective Vital Signs: Vital Signs Temperature 98.2 F 03/28/19 06:00 Pulse Rate 73 03/28/19 11:54 Respiratory Rate 16 03/28/19 06:00 Blood Pressure 146/87 03/28/19 06:00 O2 Sat by Pulse Oximetry (%) 100 03/28/19 11:45 Constitutional: No Distress, Calm Eyes: Yes: WNL HENT: Yes: WNL Neck: Yes: WNL Cardiovascular: Yes: WNL, Regular Rate and Rhythm Respiratory: Yes: WNL, Regular, CTA Bilaterally Gastrointestinal Inspection: Yes: WNL ...Auscultate: Yes: Normoactive Bowel Sounds ...Palpate: Yes: Other (NONTENDER , NML BOWEL SOUNDS) Extremities: Yes: WNL Edema: No Labs: CBC, BMP 03/28/19 05:30 03/28/19 05:30 INR, PTT INR 2.20 (0.83-1.09) H 03/19/19 05:30 Problem List - Problems (1) Elevated LFTs Assessment/Plan: - ULTRASOUND REVIEWED ? OF THICKENING OF THE GB - CLINICALLY HE DENIES ANY PAIN EVEN WITH PO INTAKE. THEREFORE, ACUTE CHOLECYSTITIS WOULD SEEM UNLIKELY. LIVER TESTS ARE DOWN TRENDING. FOR COMPLETENESS REC - EITHER MRCP OR HIDA TO FURTHER EVALUATE THE BILIARY TREE. THIS CAN BE DONE WHEN HE IS MORE STABLE. AVOID HEPATOTOXIC MEDICATIONS TREND LFT DAILY [facility]. Code(s): R94.5 - ABNORMAL RESULTS OF LIVER FUNCTION STUDIES
--- NOTE | 2019-03-28 15:27 | PN ---
Progress Note, Physician History of Present Illness: on bipap - Current Medication List Current Medications: Active Medications Albuterol Sulfate (Ventolin 0.083% Nebulizer Soln -) 1 amp NEB Q4H PRN PRN Reason: SHORT OF BREATH/WHEEZING Chlorhexidine Gluconate (Hibiclens For Decolonization -) 1 applic TP HS [facility] Last Admin: 03/27/19 21:57 Dose: 1 applic Digoxin (Lanoxin -) 0.125 mg PO DAILY [facility] Last Admin: 03/28/19 11:54 Dose: 0.125 mg Piperacillin Sod/Tazobactam (Sod 3.375 gm/ Dextrose) 50 mls @ 100 mls/hr IVPB Q8H-IV [facility]; Protocol Last Admin: 03/28/19 11:56 Dose: 100 mls/hr Methylprednisolone Sodium Succinate (Solu-Medrol -) 20 mg IVPUSH DAILY [facility] Last Admin: 03/28/19 11:55 Dose: 20 mg Metoprolol Tartrate (Lopressor -) 25 mg PO BID [facility] Last Admin: 03/28/19 11:55 Dose: 25 mg Montelukast Sodium (Singulair -) 10 mg PO HS [facility] Last Admin: 03/27/19 21:57 Dose: 10 mg Pantoprazole Sodium (Protonix -) 40 mg PO DAILY [facility] Last Admin: 03/28/19 11:55 Dose: 40 mg Rivaroxaban (Xarelto) 20 mg PO DAILY@0800 [facility] Last Admin: 03/28/19 11:55 Dose: 20 mg - Objective Vital Signs: Vital Signs Temperature 98.2 F 03/28/19 06:00 Pulse Rate 73 03/28/19 11:54 Respiratory Rate 16 03/28/19 06:00 Blood Pressure 146/87 03/28/19 06:00 O2 Sat by Pulse Oximetry (%) 99 03/28/19 14:14 Constitutional: Yes: No Distress HENT: Yes: Atraumatic Neck: Yes: Supple Cardiovascular: Yes: Regular Rate and Rhythm Respiratory: Yes: Rhonchi Gastrointestinal: Yes: Normal Bowel Sounds Extremities: Yes: WNL Edema: No Peripheral Pulses WNL: Yes Neurological: Yes: Alert, Oriented Labs: CBC, BMP 03/28/19 05:30 03/28/19 05:30 INR, PTT INR 2.20 (0.83-1.09) H 03/19/19 05:30 Problem List - Problems (1) Cor pulmonale Assessment/Plan: on meds Code(s): I27.81 - COR PULMONALE (CHRONIC) (2) Hypoxia Assessment/Plan: on bipap prn duo nebs Code(s): R09.02 - HYPOXEMIA (3) Pulmonary arterial hypertension Code(s): I27.21 - SECONDARY PULMONARY ARTERIAL HYPERTENSION (4) Respiratory distress Assessment/Plan: on bipap Code(s): R06.03 - ACUTE RESPIRATORY DISTRESS (5) Lung infiltrate Assessment/Plan: on iv abx id on board Code(s): R91.8 - OTHER NONSPECIFIC ABNORMAL FINDING OF LUNG FIELD (6) Sepsis Assessment/Plan: on abx cxs noted Code(s): A41.9 - SEPSIS, UNSPECIFIED ORGANISM
[2019-03-28] MEDS: MONTELUKAST NA 10 MG TABLET PO SCH (22:13)
[2019-03-28] MEDS: CHLORHEXIDINE GLUCONATE 4% CLEANSER FOR DECOLONIZATION TP SCH (22:14)
[2019-03-29] MEDS ORDERED: PIPERACILLIN/TAZOBACTAM 3.375 GM VIAL IVPB ONE ×3 (01:08→16:56)
[2019-03-29] MEDS ORDERED: DEXTROSE 5%-WATER - 50 ML IVPB ONE ×2 (01:09→09:43)
[2019-03-29] MEDS: PIPERACILLIN/TAZOB 3.375 GM 3.375 GM in DEXTROSE 5%-WATER - 50 ML IVPB SCH ×3 (01:15→17:03)
[2019-03-29] MEDS: RIVAROXABAN 20 MG TABLET PO SCH (09:48)
[2019-03-29] MEDS: DIGOXIN 0.125 MG TABLET (FP) PO SCH (09:48)
[2019-03-29] MEDS: METOPROLOL TARTRATE 25 MG TABLET (FP) PO SCH (09:48)
[2019-03-29] MEDS: PANTOPRAZOLE 40 MG TABLET (FP) PO SCH (09:49)
[2019-03-29] MEDS: methylPREDNISolone NA SUCC 40 MG/1 ML VIAL IVPUSH SCH (09:49)
--- NOTE | 2019-03-29 10:43 | PN ---
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 Tolerating diet. Selected Entries 03/28/19 03/28/19 03/28/19 00:00 02:00 04:00 Breakfast Lunch Temperature 98.2 F 98.1 F 98.2 F 03/28/19 03/28/19 03/28/19 06:00 10:00 12:00 Breakfast 50% Lunch Temperature 98.2 F 98.1 F 98.0 F 03/28/19 03/28/19 03/28/19 14:00 18:00 22:10 Breakfast Lunch 25% Temperature 98.3 F 98.2 F 03/29/19 03/29/19 03/29/19 01:19 03:00 06:33 Breakfast Lunch Temperature 98.1 F 98.3 F 98.1 F Laboratory Tests 03/26/19 03/28/19 05:30 05:30 WBC 16.2 H 16.8 H On Puree/thin liquids
--- NOTE | 2019-03-29 12:48 | PN ---
Progress Note (short form) - Note Progress Note: PULMONARY States breathing slowly improving. No cough or wheezing. BiPAP overnight, on nasal cannula currently. Vital Signs Period Temp Pulse Resp BP Sys/Wright Pulse Ox Last 24 Hr 98.1 F-98.3 F 62-98 16-17 110-145/67-89 96-100 Gen: tachypneic with speaking Heart: RRR Lung: distant breath sounds Abd: soft, nontender Ext: no edema CBC, BMP 03/28/19 05:30 03/28/19 05:30 Active Medications Albuterol Sulfate (Ventolin 0.083% Nebulizer Soln -) 1 amp NEB Q4H PRN PRN Reason: SHORT OF BREATH/WHEEZING Chlorhexidine Gluconate (Hibiclens For Decolonization -) 1 applic TP HS [facility] Last Admin: 03/28/19 22:14 Dose: 1 applic Digoxin (Lanoxin -) 0.125 mg PO DAILY [facility] Last Admin: 03/29/19 09:48 Dose: 0.125 mg Piperacillin Sod/Tazobactam (Sod 3.375 gm/ Dextrose) 50 mls @ 100 mls/hr IVPB Q8H-IV [facility]; Protocol Last Admin: 03/29/19 09:51 Dose: 100 mls/hr Methylprednisolone Sodium Succinate (Solu-Medrol -) 20 mg IVPUSH DAILY [facility] Last Admin: 03/29/19 09:49 Dose: 20 mg Metoprolol Tartrate (Lopressor -) 25 mg PO BID [facility] Last Admin: 03/29/19 09:48 Dose: 25 mg Montelukast Sodium (Singulair -) 10 mg PO HS [facility] Last Admin: 03/28/19 22:13 Dose: 10 mg Pantoprazole Sodium (Protonix -) 40 mg PO DAILY [facility] Last Admin: 03/29/19 09:49 Dose: 40 mg Rivaroxaban (Xarelto) 20 mg PO DAILY@0800 [facility] Last Admin: 03/29/19 09:48 Dose: 20 mg A/P 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
--- NOTE | 2019-03-29 13:45 | PN ---
Progress Note, Physician - Current Medication List Current Medications: Active Medications Albuterol Sulfate (Ventolin 0.083% Nebulizer Soln -) 1 amp NEB Q4H PRN PRN Reason: SHORT OF BREATH/WHEEZING Chlorhexidine Gluconate (Hibiclens For Decolonization -) 1 applic TP HS [facility] Last Admin: 03/28/19 22:14 Dose: 1 applic Digoxin (Lanoxin -) 0.125 mg PO DAILY [facility] Last Admin: 03/29/19 09:48 Dose: 0.125 mg Piperacillin Sod/Tazobactam (Sod 3.375 gm/ Dextrose) 50 mls @ 100 mls/hr IVPB Q8H-IV [facility]; Protocol Last Admin: 03/29/19 09:51 Dose: 100 mls/hr Methylprednisolone Sodium Succinate (Solu-Medrol -) 20 mg IVPUSH DAILY [facility] Last Admin: 03/29/19 09:49 Dose: 20 mg Metoprolol Tartrate (Lopressor -) 25 mg PO BID [facility] Last Admin: 03/29/19 09:48 Dose: 25 mg Montelukast Sodium (Singulair -) 10 mg PO HS [facility] Last Admin: 03/28/19 22:13 Dose: 10 mg Pantoprazole Sodium (Protonix -) 40 mg PO DAILY [facility] Last Admin: 03/29/19 09:49 Dose: 40 mg Rivaroxaban (Xarelto) 20 mg PO DAILY@0800 [facility] Last Admin: 03/29/19 09:48 Dose: 20 mg - Objective Vital Signs: Vital Signs Temperature 98.1 F 03/29/19 06:33 Pulse Rate 98 H 03/29/19 09:48 Respiratory Rate 16 03/29/19 06:33 Blood Pressure 142/89 03/29/19 06:33 O2 Sat by Pulse Oximetry (%) 96 03/29/19 13:00 Labs: CBC, BMP 03/28/19 05:30 03/28/19 05:30 INR, PTT INR 2.20 (0.83-1.09) H 03/19/19 05:30
--- NOTE | 2019-03-29 14:17 | DS ---
Physical Examination Vital Signs: Vital Signs Temperature 98.1 F 03/29/19 06:33 Pulse Rate 98 H 03/29/19 09:48 Respiratory Rate 16 03/29/19 06:33 Blood Pressure 142/89 03/29/19 06:33 O2 Sat by Pulse Oximetry (%) 96 03/29/19 13:00 Constitutional: Yes: Calm HENT: Yes: Atraumatic Neck: Yes: Supple Cardiovascular: Yes: Regular Rate and Rhythm Respiratory: Yes: Rhonchi, Wheezes Gastrointestinal: Yes: Normal Bowel Sounds Extremities: Yes: WNL Edema: No Peripheral Pulses WNL: Yes Neurological: Yes: Alert, Oriented Labs: CBC, BMP 03/28/19 05:30 03/28/19 05:30 Discharge Summary Reason For Visit: PULMONARY ARTERIAL HYPERSTENSION, INFILTRATE OF E[place]ONORA Current Active Problems Cor pulmonale (Acute) Elevated LFTs (Acute) Hypoxia (Acute) JVD (jugular venous distension) (Acute) Lung infiltrate (Acute) Pulmonary arterial hypertension (Acute) Pulmonary embolus (Acute) Respiratory distress (Acute) Respiratory failure (Acute) Sepsis (Acute) Tachycardia (Acute) Condition: Guarded - Instructions - Home Medications Comprehensive Discharge Medication List: Ambulatory Orders Montelukast Sodium [Singulair] 10 mg PO DAILY 03/15/19 Pantoprazole Sodium [Protonix -] 40 mg PO DAILY 03/15/19 Prednisone 10 mg PO DAILY 03/15/19 Rivaroxaban [Xarelto -] 20 mg PO DAILY 03/15/19 Albuterol 0.083% Nebulizer Dot [Ventolin 0.083% Nebulizer Soln -] 1 neb NEB Q6H 03/22/19 Albuterol 0.083% Nebulizer Dot [Ventolin 0.083% Nebulizer Soln -] 1 amp NEB Q4H PRN amp 03/29/19 Digoxin [Lanoxin -] 0.125 mg PO DAILY tablet 03/29/19 Methylprednisolone Na Succ [Solu-Medrol -] 20 mg IVPUSH DAILY vial 03/29/19 Metoprolol Tartrate [Lopressor -] 25 mg PO BID tablet 03/29/19 Piperacillin/Tazob 3.375 gm [Zosyn -] 3.375 gm IVPB Q8H-IV vial 03/29/19 dc to LTACH as per dr Vail recommendation
--- NOTE | 2019-03-29 16:56 | PN.GI ---
GI Progress Note Subjective: Pt seen/examined at bedside, feels better, tolerating puree diet, denies abdominal pain, n/v. No complaints currently - Objective Vital Signs: Vital Signs Temperature 98.2 F 03/29/19 09:00 Pulse Rate 76 03/29/19 14:00 Respiratory Rate 22 H 03/29/19 14:00 Blood Pressure 123/69 03/29/19 14:00 O2 Sat by Pulse Oximetry (%) 96 03/29/19 14:00 Constitutional: Well Nourished, No Distress, Calm Cardiovascular: Yes: WNL, Regular Rate and Rhythm Respiratory: Yes: WNL, Regular, CTA Bilaterally ...Palpate: Yes: Other (Abd soft, nt, nd) Labs: CBC, BMP 03/28/19 05:30 03/28/19 05:30 INR, PTT INR 2.20 (0.83-1.09) H 03/19/19 05:30 Problem List - Problems (1) Elevated LFTs Assessment/Plan: 68yo male h/o pulmonary HTN, PE on xarelto with elevated LFTs mixed hepatocellular/cholestatic pattern now downtrending. US revealing ?thickened galbladder wall and mild CBD dilation. Exact etiology unclear, possibly multifactorial ?passed stone, medications, ischemic component -Recommend closely monitor LFT trend -Avoid nonessential hepatotoxic medications -MRCP to further evaluate GB/biliary tree when further stabilized from respiratory standpoint Code(s): R94.5 - ABNORMAL RESULTS OF LIVER FUNCTION STUDIES
[2019-03-29 18:13] VITALS: BP 131/96; PULSE 78; TEMP 98.7
== END 2019-03-29 18:13 | DRG 870 ==
LOC: JER 13:51 → JERBED 18:16 → JICU 20:21 → J2W 03-27 21:10
PROVIDERS: ADMIT Internal Medicine; ATTEND Internal Medicine
PROC: 5A1955Z Respiratory Ventilation, Greater than 96 Consecutive Hours (ICD-10-PCS; principal; 2019-03-15)
PROC: 0BH17EZ Insertion of Endotracheal Airway into Trachea, Via Natural or Artificial Opening (ICD-10-PCS; 2019-03-15)
DX: A41.9 Sepsis, unspecified organism (principal); J96.22 Acute and chronic respiratory failure with hypercapnia; J18.9 Pneumonia, unspecified organism; J96.21 Acute and chronic respiratory failure with hypoxia; E87.2 Acidosis; R64 Cachexia; Z68.1 Body mass index [BMI] 19.9 or less, adult; Z99.81 Dependence on supplemental oxygen; R65.20 Severe sepsis without septic shock; Z86.711 Personal history of pulmonary embolism; Z79.01 Long term (current) use of anticoagulants; I45.10 Unspecified right bundle-branch block; E87.5 Hyperkalemia; C61 Malignant neoplasm of prostate; I27.81 Cor pulmonale (chronic); E83.51 Hypocalcemia; I27.21 Secondary pulmonary arterial hypertension; R94.5 Abnormal results of liver function studies
CPT/HCPCS: 36415; 36600; 71045-TC-FY; 71275-TC; 76705-TC; 80048; 80053; 80162; 82375; 82803; 83050; 83605; 83735; 83880; 84100; 84484; 85025; 85027; 85379; 85610; 85730; 86480; 87040; 87070; 87077; 87106; 87116; 87186; 87205; 87206; 87899; 93005; 93010; 93306-TC; 94002; 94640; 94660; 97161-GP; 99284-25; J7030